=== PATIENT | female | born 1975 | race African-American/Black ===

== ENCOUNTER 2018-03-24 11:04 | Inpatient (IN) | payer SELFPAY ==
[~2018-03-24] VITALS: Ht 180.3 cm; Wt 88.5 kg
[~2018-03-24 11:04] MED LIST: CLON0.5T12 PO; CYAN100T PO; FOLI1TAB15 PO; LISI10TA7 PO; LORA0.5T2 PO; METR500T4 PO; ONDA4TAB9 PO; QUET50TA55 PO; SUMA100T16 PO
[2018-03-24 11:35] LABS: BASOPHILS % (AUTO) 0.5 % (0.0-5.0); EOSINOPHILS % (AUTO) 5.5 % (0.0-8.0); HEMATOCRIT 30.1 % (36-48); LYMPHOCYTES % (AUTO) 17.5 % (21.0-51.0); MEAN CORPUSCULAR HEMOGLOBIN 31.9 pg (27.0-33.0); MEAN CORPUSCULAR HGB CONC 34.6 g/dL (32.0-36.0); MEAN CORPUSCULAR VOLUME 92.2 fL (79-99); MONOCYTES % (AUTO) 8.6 % (3.0-13.0); NEUTROPHILS % (AUTO) 67.9 % (40.0-77.0); PLATELET COUNT (AUTO) 589 K/uL (130-400); RED BLOOD CELL COUNT(AUTO) 3.26 MIL/uL (4.00-5.50); RED CELL DISTRIBUTION WIDTH 14.5 % (11.0-15.5); WHITE BLOOD COUNT (AUTO) 9.3 K/uL (4.8-10.8)
[2018-03-24] MEDS ORDERED: KETOROLAC TROMETHAMINE 30MG/ML ONE (11:37)
[2018-03-24] MEDS ORDERED: ONDANSETRON HCL 4 MG/2 ML VIAL ONE (11:37)
[2018-03-24] MEDS ORDERED: SODIUM CHLORIDE 0.9% 1000ML 1,000 ML IV ONE (11:37)
[2018-03-24 12:01] LABS: CREATININE 0.7 mg/dL (0.5-1.5); POTASSIUM 4.2 mmol/L (3.5-5.1)
[2018-03-24 12:05] LABS: ALBUMIN 2.8 g/dL (3.5-5.0); BILIRUBIN,DIRECT 0.3 mg/dL (0.0-0.3); TOTAL PROTEIN, SERUM 6.8 g/dL (6.0-8.3)
[2018-03-24] MEDS ORDERED: IOPAMIDOL-370 75 ML VIAL IV ONE (12:21)
[2018-03-24] MEDS ORDERED: HYDROMORPHONE HCL 0.5 MG/0.5 ML ML ONE (14:15)
[2018-03-24 15:03] LABS: APPEARANCE,URINE Clear (CLEAR); BILIRUBIN,URINE Negative (NEGATIVE); COLOR,URINE Yellow (YELLOW); GLUCOSE, URINE (UA) Negative (NEGATIVE); KETONES,URINE Trace mg/dL (NEGATIVE); LEUKOCYTE ESTERASE ,URINE Negative (NEGATIVE); NITRATE,URINE Negative (NEGATIVE); OCCULT BLOOD,URINE Trace (NEGATIVE); PH,URINE 8.5 (5.0-8.0); PROTEIN,URINE Negative (NEGATIVE); UROBILINOGEN,URINE 0.2 mg/dL (0.2-1.0)
[2018-03-24 15:09] LABS: AMPHET/METH SCREEN,URINE NEGATIVE (NEGATIVE); BARBITURATE SCREEN, URINE NEGATIVE (NEGATIVE); BENZODIAZEPINES SCREEN,URINE NEGATIVE (NEGATIVE); CANNABINOID SCREEN,URINE NEGATIVE (NEGATIVE); COCAINE SCREEN,URINE NEGATIVE (NEGATIVE); OPIATE SCREEN,URINE NEGATIVE (NEGATIVE); PHENCYCLIDINE SCREEN,URINE NEGATIVE (NEGATIVE)
[2018-03-24 15:18] LABS: BACTERIA,URINE Rare /HPF (None Seen); RBC,URINE 0-1 /HPF (0-1); SQUAMOUS EPITHELIAL CELL,UR Rare /HPF (0-2); WBC,URINE 0-1 /HPF (0-1)
[2018-03-24] MEDS: PROCALAMINE IV SOLUTION 1,000 ML IV SCH (15:55)
[2018-03-24 17:11] VITALS: BP 145/105
[2018-03-24] MEDS: ONDANSETRON HCL 4 MG/2 ML VIAL IVP PRN ×2 (17:28→21:20)
[2018-03-24] MEDS ORDERED: MORPHINE SULFATE 2 MG/ML 1ML SYG IVP PRN (17:30)
[2018-03-24] MEDS ORDERED: ONDANSETRON HCL 4 MG/2 ML VIAL IVP PRN (17:30)
[2018-03-24] MEDS ORDERED: MORPHINE SULFATE 4 MG/1ML SYG IV PRN (17:30)
[2018-03-24 19:00] VITALS: BP 156/117
[2018-03-24] MEDS ORDERED: HYDRALAZINE HCL 20 MG/ML VIAL IV PRN (20:15)
[2018-03-24] MEDS: METRONIDAZOLE 500MG/100ML BAG 100 ML IV SCH (20:42)
[2018-03-24] MEDS: MORPHINE SULFATE 2 MG/ML 1ML SYG IVP PRN (21:21)
[2018-03-25] VITALS (7 sets, daily range): BP systolic 125–147; BP diastolic 73–99
[2018-03-25] MEDS: MORPHINE SULFATE 2 MG/ML 1ML SYG IVP PRN (01:47)
[2018-03-25] MEDS: ONDANSETRON HCL 4 MG/2 ML VIAL IVP PRN ×4 (05:26→20:25)
[2018-03-25] MEDS: KETOROLAC TROMETHAMINE 15MG/ML IV PRN ×2 (05:26→08:29)
[2018-03-25 07:16] LABS: HEMATOCRIT 27.9 % (36-48); MEAN CORPUSCULAR HEMOGLOBIN 31.1 pg (27.0-33.0); MEAN CORPUSCULAR HGB CONC 33.8 g/dL (32.0-36.0); MEAN CORPUSCULAR VOLUME 92.1 fL (79-99); PLATELET COUNT (AUTO) 537 K/uL (130-400); RED BLOOD CELL COUNT(AUTO) 3.03 MIL/uL (4.00-5.50); RED CELL DISTRIBUTION WIDTH 14.7 % (11.0-15.5); WHITE BLOOD COUNT (AUTO) 9.4 K/uL (4.8-10.8)
[2018-03-25 07:27] LABS: CREATININE 0.7 mg/dL (0.5-1.5)
[2018-03-25] MEDS: PROCALAMINE IV SOLUTION 1,000 ML IV SCH (08:28)
[2018-03-25] MEDS: METRONIDAZOLE 500MG/100ML BAG 100 ML IV SCH ×2 (08:29→20:19)
[2018-03-25] MEDS: CYANOCOBALAMIN (VITAMIN B-12) 1000 MCG/ML 1ML VIAL IM SCH (08:30)
[2018-03-25] MEDS ORDERED: HYDROMORPHONE PCA 10 MG/50 ML 50 ML IV PRN (09:15)
[2018-03-25] MEDS ORDERED: NALOXONE HCL 0.4 MG/1 ML ML IVP PRN (09:15)
[2018-03-25] MEDS ORDERED: PHARMACY COMMUNICATION MISC SCH (09:30)
[2018-03-25] MEDS: LORAZEPAM 2 MG/ML 1 ML VIAL IVP PRN (09:51)
[2018-03-26 03:53] VITALS: BP 127/81
[2018-03-26] MEDS: ONDANSETRON HCL 4 MG/2 ML VIAL IVP PRN ×3 (04:09→20:58)
[2018-03-26 04:47] LABS: HEMATOCRIT 25.6 % (36-48); MEAN CORPUSCULAR HEMOGLOBIN 33.7 pg (27.0-33.0); MEAN CORPUSCULAR HGB CONC 36.4 g/dL (32.0-36.0); MEAN CORPUSCULAR VOLUME 92.4 fL (79-99); PLATELET COUNT (AUTO) 546 K/uL (130-400); RED BLOOD CELL COUNT(AUTO) 2.77 MIL/uL (4.00-5.50); RED CELL DISTRIBUTION WIDTH 14.8 % (11.0-15.5)
[2018-03-26 04:54] LABS: CREATININE 0.7 mg/dL (0.5-1.5)
[2018-03-26 05:16] LABS: BAND NEUTROPHILS % (MANUAL) 10 % (0-2); EOSINOPHILS % (MANUAL) 3 % (1-6); LYMPHOCYTES % (MANUAL) 25 % (22-44); MAN.DIFF COMMENT-IMPRESSION MANUAL DIFFERENTIAL; MONOCYTES % (MANUAL) 8 % (2-9); PLATELET MORPHOLOGY COMMENT INCREASED; SEGMENTED NEUTROPHILS % 54 % (40-70)
[2018-03-26 07:00] VITALS: BP 139/96
[2018-03-26] MEDS ORDERED: PHARMACY COMMUNICATION MISC SCH (09:00)
[2018-03-26] MEDS: METRONIDAZOLE 500MG/100ML BAG 100 ML IV SCH ×2 (09:14→20:51)
[2018-03-26] MEDS: CYANOCOBALAMIN (VITAMIN B-12) 1000 MCG/ML 1ML VIAL IM SCH (09:14)
[2018-03-26] MEDS: LORAZEPAM 2 MG/ML 1 ML VIAL IVP PRN (09:33)
[2018-03-26] MEDS: PROCALAMINE IV SOLUTION 1,000 ML IV SCH (09:36)
[2018-03-26 11:20] VITALS: BP 136/103
[2018-03-26 12:06] LABS: CHOLESTEROL 105 mg/dL (<200); HDL CHOLESTEROL 36 mg/dL (35-85); LDL DIRECT 55 mg/dL (0-99); TRIGLYCERIDES 87 mg/dL (30-200)
[2018-03-26] MEDS: LEVOFLOXACIN 500 MG/D5W 100 ML 100 ML IV SCH (12:23)
[2018-03-26 15:20] VITALS: BP 128/85
[2018-03-26] MEDS: KETOROLAC TROMETHAMINE 15MG/ML IV PRN (17:59)
[2018-03-26 19:21] VITALS: BP 123/90
[2018-03-26] MEDS: SODIUM CHLORIDE 0.9% 1000ML 1,000 ML IV SCH (23:39)
[2018-03-26 23:43] VITALS: BP 122/80
[2018-03-27] VITALS (20 sets, daily range): BP systolic 104–159; BP diastolic 62–107
[2018-03-27] MEDS: LORAZEPAM 2 MG/ML 1 ML VIAL IVP PRN ×2 (01:32→14:15)
[2018-03-27 04:34] LABS: HEMATOCRIT 27.3 % (36-48); MEAN CORPUSCULAR HEMOGLOBIN 32.1 pg (27.0-33.0); MEAN CORPUSCULAR HGB CONC 34.4 g/dL (32.0-36.0); MEAN CORPUSCULAR VOLUME 93.5 fL (79-99); PLATELET COUNT (AUTO) 630 K/uL (130-400); RED BLOOD CELL COUNT(AUTO) 2.93 MIL/uL (4.00-5.50); RED CELL DISTRIBUTION WIDTH 15.1 % (11.0-15.5); WHITE BLOOD COUNT (AUTO) 9.8 K/uL (4.8-10.8)
[2018-03-27 04:44] LABS: CREATININE 0.7 mg/dL (0.5-1.5)
[2018-03-27 04:54] LABS: EOSINOPHILS % (MANUAL) 3 % (1-6); LYMPHOCYTES % (MANUAL) 20 % (22-44); MAN.DIFF COMMENT-IMPRESSION MANUAL DIFFERENTIAL; MONOCYTES % (MANUAL) 12 % (2-9); SEGMENTED NEUTROPHILS % 65 % (40-70)
[2018-03-27 04:55] LABS: PLATELET MORPHOLOGY COMMENT SLIGHT INCREASED
[2018-03-27] MEDS: SODIUM CHLORIDE 0.9% 1000ML 1,000 ML IV SCH ×3 (05:07→21:34)
[2018-03-27] MEDS: CYANOCOBALAMIN (VITAMIN B-12) 1000 MCG/ML 1ML VIAL IM SCH (08:20)
[2018-03-27] MEDS: METRONIDAZOLE 500MG/100ML BAG 100 ML IV SCH ×2 (08:21→21:29)
[2018-03-27] MEDS: ONDANSETRON HCL 4 MG/2 ML VIAL IVP PRN (08:21)
[2018-03-27] MEDS: LEVOFLOXACIN 500 MG/D5W 100 ML 100 ML IV SCH (13:11)
[2018-03-27] MEDS: PANTOPRAZOLE SODIUM 40 MG TABLET.DR PO SCH (21:29)
[2018-03-28 03:50] VITALS: BP 114/76
[2018-03-28] MEDS: SIMETHICONE 80 MG TAB.CHEW PO PRN ×2 (04:38→22:19)
[2018-03-28 04:52] LABS: ALBUMIN 2.2 g/dL (3.5-5.0); BILIRUBIN,TOTAL 0.7 mg/dL (0.2-1.0); CREATININE 0.7 mg/dL (0.5-1.5); POTASSIUM 4.1 mmol/L (3.5-5.1); TOTAL PROTEIN, SERUM 5.9 g/dL (6.0-8.3)
[2018-03-28 08:00] VITALS: BP 121/76
[2018-03-28] MEDS: LORAZEPAM 2 MG/ML 1 ML VIAL IVP PRN ×2 (09:40→22:24)
[2018-03-28] MEDS: CYANOCOBALAMIN (VITAMIN B-12) 1000 MCG/ML 1ML VIAL IM SCH (09:41)
[2018-03-28] MEDS: METRONIDAZOLE 500MG/100ML BAG 100 ML IV SCH ×2 (09:41→21:14)
[2018-03-28] MEDS: PANTOPRAZOLE SODIUM 40 MG TABLET.DR PO SCH ×2 (09:41→21:14)
[2018-03-28] MEDS: SODIUM CHLORIDE 0.9% 1000ML 1,000 ML IV SCH ×3 (09:45→21:40)
[2018-03-28 12:00] VITALS: BP 119/75
[2018-03-28] MEDS: LEVOFLOXACIN 500 MG/D5W 100 ML 100 ML IV SCH (13:01)
[2018-03-28 16:00] VITALS: BP 126/82
[2018-03-28] MEDS ORDERED: PROCALAMINE IV SOLUTION 1,000 ML IV SCH (16:50)
[2018-03-28] MEDS: PROCALAMINE IV SOLUTION 1,000 ML IV SCH (17:17)
[2018-03-28 19:40] VITALS: BP 116/89
[2018-03-28 23:50] VITALS: BP 135/91
[2018-03-29 03:55] VITALS: BP 133/89
[2018-03-29] MEDS: SODIUM CHLORIDE 0.9% 1000ML 1,000 ML IV SCH ×5 (04:20→23:49)
[2018-03-29 08:00] VITALS: BP 141/92
[2018-03-29] MEDS: SIMETHICONE 80 MG TAB.CHEW PO PRN ×2 (09:39→18:44)
[2018-03-29] MEDS: ONDANSETRON HCL 4 MG/2 ML VIAL IVP PRN ×2 (09:39→18:44)
[2018-03-29] MEDS: BISACODYL 5 MG TABLET.DR PO SCH ×2 (09:40→21:12)
[2018-03-29] MEDS: PANTOPRAZOLE SODIUM 40 MG TABLET.DR PO SCH ×2 (09:40→21:12)
[2018-03-29] MEDS: METRONIDAZOLE 500MG/100ML BAG 100 ML IV SCH ×2 (10:02→21:12)
[2018-03-29] MEDS: PROCALAMINE IV SOLUTION 1,000 ML IV SCH ×2 (10:02→21:26)
[2018-03-29] MEDS: CYANOCOBALAMIN (VITAMIN B-12) 1000 MCG/ML 1ML VIAL IM SCH (10:03)
[2018-03-29 12:00] VITALS: BP 132/81
[2018-03-29] MEDS: LEVOFLOXACIN 500 MG/D5W 100 ML 100 ML IV SCH (12:02)
[2018-03-29 16:00] VITALS: BP 153/108
[2018-03-29 19:00] VITALS: BP 138/101
[2018-03-29] MEDS: LORAZEPAM 2 MG/ML 1 ML VIAL IVP PRN (21:27)
[2018-03-30] VITALS: BP_SYST 137; BP_SYST 152; BP_DIAS 96
[2018-03-30] MEDS: SODIUM CHLORIDE 0.9% 1000ML 1,000 ML IV SCH ×3 (03:55→20:50)
[2018-03-30 04:36] VITALS: BP 130/89
[2018-03-30 07:10] VITALS: BP 137/90
[2018-03-30] MEDS: BISACODYL 5 MG TABLET.DR PO SCH ×2 (09:00→20:48)
[2018-03-30] MEDS: PROCALAMINE IV SOLUTION 1,000 ML IV SCH ×2 (09:26→20:27)
[2018-03-30] MEDS: METRONIDAZOLE 500MG/100ML BAG 100 ML IV SCH ×2 (09:28→20:48)
[2018-03-30] MEDS: SIMETHICONE 80 MG TAB.CHEW PO PRN ×2 (09:39→15:46)
[2018-03-30] MEDS: PANTOPRAZOLE SODIUM 40 MG TABLET.DR PO SCH ×2 (09:39→20:48)
[2018-03-30] MEDS: CYANOCOBALAMIN (VITAMIN B-12) 1000 MCG/ML 1ML VIAL IM SCH (09:43)
[2018-03-30 10:43] VITALS: BP 128/90
[2018-03-30] MEDS: LEVOFLOXACIN 500 MG/D5W 100 ML 100 ML IV SCH (15:43)
[2018-03-30] MEDS: ONDANSETRON HCL 4 MG/2 ML VIAL IVP PRN (15:46)
[2018-03-30 15:56] VITALS: BP 137/89
[2018-03-30 20:00] VITALS: BP 144/99
[2018-03-31] VITALS (7 sets, daily range): BP systolic 126–142; BP diastolic 58–100
[2018-03-31] MEDS: SODIUM CHLORIDE 0.9% 1000ML 1,000 ML IV SCH ×4 (02:23→22:39)
[2018-03-31] MEDS: BISACODYL 5 MG TABLET.DR PO SCH (09:00)
[2018-03-31] MEDS ORDERED: BISACODYL 5 MG TABLET.DR PO PRN (10:15)
[2018-03-31] MEDS: ONDANSETRON HCL 4 MG/2 ML VIAL IVP PRN ×3 (10:15→19:41)
[2018-03-31] MEDS: SIMETHICONE 80 MG TAB.CHEW PO PRN (10:15)
[2018-03-31] MEDS: PROCALAMINE IV SOLUTION 1,000 ML IV SCH (12:02)
[2018-03-31] MEDS: PANTOPRAZOLE SODIUM 40 MG TABLET.DR PO SCH ×2 (12:03→19:41)
[2018-03-31] MEDS: METRONIDAZOLE 500MG/100ML BAG 100 ML IV SCH ×2 (12:03→19:50)
[2018-03-31] MEDS: CYANOCOBALAMIN (VITAMIN B-12) 1000 MCG/ML 1ML VIAL IM SCH (12:09)
[2018-03-31] MEDS: LEVOFLOXACIN 500 MG/D5W 100 ML 100 ML IV SCH (14:47)
[2018-04-01] MEDS: PROCALAMINE IV SOLUTION 1,000 ML IV SCH (03:28)
[2018-04-01] MEDS: SODIUM CHLORIDE 0.9% 1000ML 1,000 ML IV SCH ×3 (03:28→18:10)
[2018-04-01 04:00] VITALS: BP 149/104
[2018-04-01] MEDS: METOCLOPRAMIDE 10 MG/2 ML VIAL IVP PRN ×3 (04:29→20:25)
[2018-04-01 07:00] VITALS: BP 140/93
[2018-04-01] MEDS: ONDANSETRON HCL 4 MG/2 ML VIAL IVP PRN (09:31)
[2018-04-01] MEDS: PANTOPRAZOLE SODIUM 40 MG TABLET.DR PO SCH ×2 (09:31→20:21)
[2018-04-01] MEDS: METRONIDAZOLE 500MG/100ML BAG 100 ML IV SCH ×2 (09:31→20:21)
[2018-04-01 11:00] VITALS: BP 138/93
[2018-04-01] MEDS: LEVOFLOXACIN 500 MG/D5W 100 ML 100 ML IV SCH (12:06)
[2018-04-01 16:00] VITALS: BP 135/101
[2018-04-01 20:00] VITALS: BP 123/84
[2018-04-02] VITALS: BP 138/96
[2018-04-02] MEDS: ONDANSETRON HCL 4 MG/2 ML VIAL IVP PRN ×3 (00:40→20:48)
[2018-04-02] MEDS: SODIUM CHLORIDE 0.9% 1000ML 1,000 ML IV SCH ×4 (00:40→20:49)
[2018-04-02 04:00] VITALS: BP 137/92
[2018-04-02] MEDS: PANTOPRAZOLE SODIUM 40 MG TABLET.DR PO SCH ×2 (08:08→20:48)
[2018-04-02] MEDS: METRONIDAZOLE 500MG/100ML BAG 100 ML IV SCH ×2 (08:09→20:48)
[2018-04-02 08:37] VITALS: BP 136/90
[2018-04-02] MEDS: METOCLOPRAMIDE 10 MG/2 ML VIAL IVP PRN ×2 (09:05→23:30)
[2018-04-02 11:26] VITALS: BP 126/79
[2018-04-02] MEDS: LEVOFLOXACIN 500 MG/D5W 100 ML 100 ML IV SCH (13:19)
[2018-04-02] MEDS ORDERED: DIATR MEGLU/DIATRIZOATE SODIUM 30 ML BOTTLE ONE (13:50)
[2018-04-02] MEDS ORDERED: IOPAMIDOL-370 75 ML VIAL IV ONE (15:22)
[2018-04-02 16:07] VITALS: BP 131/97
[2018-04-02 20:30] VITALS: BP 120/68
[2018-04-03] VITALS (29 sets, daily range): BP systolic 118–148; BP diastolic 71–99
[2018-04-03] MEDS: SODIUM CHLORIDE 0.9% 1000ML 1,000 ML IV SCH ×2 (04:53→15:18)
[2018-04-03] MEDS: ONDANSETRON HCL 4 MG/2 ML VIAL IVP PRN ×5 (05:15→23:21)
[2018-04-03] MEDS: METRONIDAZOLE 500MG/100ML BAG 100 ML IV SCH ×2 (08:34→23:21)
[2018-04-03] MEDS ORDERED: FENTANYL CITRATE PF 50 MCG/1 ML 2ML VIAL ONE ×5 (10:35→12:49)
[2018-04-03] MEDS ORDERED: MIDAZOLAM HCL 1 MG/ML 2ML VIAL ONE (10:35)
[2018-04-03] MEDS ORDERED: PROPOFOL 10 MG/ML 20ML VIAL IV ONE (10:35)
[2018-04-03] MEDS ORDERED: LACTATED RINGERS 1000ML 1,000 ML IV ONE (10:35)
[2018-04-03] MEDS: LEVOFLOXACIN 500 MG/D5W 100 ML 100 ML IV SCH ×2 (11:04→11:58)
[2018-04-03] MEDS ORDERED: GLYCOPYRROLATE 0.2 MG/ML 5 ML VIAL ONE (11:18)
[2018-04-03] MEDS ORDERED: LIDOCAINE PF 2% 5ML ABBOJECT ONE (11:18)
[2018-04-03] MEDS ORDERED: NEOSTIGMINE 5MG/5ML SYR IV ONE (11:18)
[2018-04-03] MEDS ORDERED: NEOMY SULF/POLYMYXIN B SULFATE 1 ML AMPUL IR ONE (11:38)
[2018-04-03] MEDS: METOCLOPRAMIDE 10 MG/2 ML VIAL IVP PRN (12:45)
[2018-04-03] MEDS ORDERED: MEPERIDINE-PF 25 MG/ML SYG ONE (13:12)
[2018-04-03] MEDS ORDERED: PROMETHAZINE HCL 25 MG/ML 1ML AMPULE IM ONE (13:12)
[2018-04-03] MEDS: PANTOPRAZOLE 40 MG/VIAL IVP SCH ×2 (16:54→23:21)
[2018-04-04] VITALS (7 sets, daily range): BP systolic 106–157; BP diastolic 65–83
[2018-04-04] MEDS: ONDANSETRON HCL 4 MG/2 ML VIAL IVP PRN ×3 (02:33→22:41)
[2018-04-04] MEDS: SODIUM CHLORIDE 0.9% 1000ML 1,000 ML IV SCH ×2 (04:29→09:25)
[2018-04-04] MEDS: METOCLOPRAMIDE 10 MG/2 ML VIAL IVP PRN (04:34)
[2018-04-04 06:07] LABS: HEMATOCRIT 25.9 % (36-48); MEAN CORPUSCULAR HEMOGLOBIN 31.4 pg (27.0-33.0); MEAN CORPUSCULAR HGB CONC 34.3 g/dL (32.0-36.0); MEAN CORPUSCULAR VOLUME 91.7 fL (79-99); PLATELET COUNT (AUTO) 542 K/uL (130-400); RED BLOOD CELL COUNT(AUTO) 2.83 MIL/uL (4.00-5.50); WHITE BLOOD COUNT (AUTO) 9.2 K/uL (4.8-10.8)
[2018-04-04 06:21] LABS: CREATININE 0.8 mg/dL (0.5-1.5); POTASSIUM 3.9 mmol/L (3.5-5.1)
[2018-04-04] MEDS: PANTOPRAZOLE 40 MG/VIAL IVP SCH ×2 (09:16→22:13)
[2018-04-04] MEDS: METRONIDAZOLE 500MG/100ML BAG 100 ML IV SCH ×2 (09:17→22:11)
[2018-04-04] MEDS ORDERED: IBUPROFEN 800 MG TAB PO PRN (12:30)
[2018-04-04] MEDS: LEVOFLOXACIN 500 MG/D5W 100 ML 100 ML IV SCH (12:33)
[2018-04-05] MEDS: ONDANSETRON HCL 4 MG/2 ML VIAL IVP PRN ×2 (02:52→13:21)
[2018-04-05] MEDS: TRAMADOL /APAP 37.5MG/325MG TAB PO PRN ×2 (02:58→08:50)
[2018-04-05 03:00] VITALS: BP 128/95
[2018-04-05] MEDS: SIMETHICONE 80 MG TAB.CHEW PO PRN (03:06)
[2018-04-05 06:21] LABS: HEMATOCRIT 24.5 % (36-48); MEAN CORPUSCULAR HEMOGLOBIN 31.8 pg (27.0-33.0); MEAN CORPUSCULAR HGB CONC 34.8 g/dL (32.0-36.0); MEAN CORPUSCULAR VOLUME 91.2 fL (79-99); NUCLEATED RED BLOOD CELLS 0.1 % (0.0-0.19); PLATELET COUNT (AUTO) 473 K/uL (130-400); RED BLOOD CELL COUNT(AUTO) 2.68 MIL/uL (4.00-5.50); RED CELL DISTRIBUTION WIDTH 14.9 % (11.0-15.5); WHITE BLOOD COUNT (AUTO) 7.4 K/uL (4.8-10.8)
[2018-04-05 08:00] VITALS: BP 145/97
[2018-04-05 08:08] LABS: BAND NEUTROPHILS % (MANUAL) 1 % (0-2); BASOPHILS % (MANUAL) 1 % (0-2); EOSINOPHILS % (MANUAL) 5 % (1-6); LYMPHOCYTES % (MANUAL) 23 % (22-44); MONOCYTES % (MANUAL) 6 % (2-9); REACTIVE LYMPHOCYTES 1 % (0-0); SEGMENTED NEUTROPHILS % 63 % (40-70)
[2018-04-05 08:14] LABS: MAN.DIFF COMMENT-IMPRESSION MANUAL DIFFERENTIAL; PLATELET MORPHOLOGY COMMENT SLIGHT INCREASED
[2018-04-05] MEDS: METRONIDAZOLE 500MG/100ML BAG 100 ML IV SCH (08:50)
[2018-04-05] MEDS: PANTOPRAZOLE SODIUM 40 MG TABLET.DR PO SCH ×2 (08:50→17:11)
[2018-04-05] MEDS: PANTOPRAZOLE 40 MG/VIAL IVP SCH (08:56)
[2018-04-05 08:57] LABS: HEMATOCRIT 26.1 % (36-48)
[2018-04-05 11:00] VITALS: BP 114/72
[2018-04-05] MEDS: LEVOFLOXACIN 500 MG/D5W 100 ML 100 ML IV SCH (13:20)
[2018-04-05] MEDS ORDERED: TRAM-355 PO (15:23)
[2018-04-05] MEDS ORDERED: IBUP-2077 PO (15:23)
[2018-04-05] MEDS ORDERED: PANT40TA PO (15:23)
[2018-04-05] MEDS ORDERED: LEVO500T2 PO (15:23)
[2018-04-05 16:00] VITALS: BP 116/78
== END 2018-04-05 18:54 | disposition home or self-care (01) | DRG 439 ==
LOC: EDH 11:04 → EDHIP 11:05 → 3CH 17:06
PROVIDERS: ADMIT Internal Medicine Nephrology; ATTEND Internal Medicine Nephrology
PROC: 0DB68ZX Excision of Stomach, Via Natural or Artificial Opening Endoscopic, Diagnostic (ICD-10-PCS; 2018-03-27)
PROC: 0J9C00Z Drainage of Pelvic Region Subcutaneous Tissue and Fascia with Drainage Device, Open Approach (ICD-10-PCS; principal; 2018-04-03 11:07)
DX: K85.20 Alcohol induced acute pancreatitis without necrosis or infection (principal); E87.1 Hypo-osmolality and hyponatremia; E88.09 Other disorders of plasma-protein metabolism, not elsewhere classified; D64.9 Anemia, unspecified; I10 Essential (primary) hypertension; Z90.721 Acquired absence of ovaries, unilateral; Z90.79 Acquired absence of other genital organ(s); Z88.0 Allergy status to penicillin; Z88.8 Allergy status to other drugs, medicaments and biological substances; Z82.61 Family history of arthritis; Z83.3 Family history of diabetes mellitus; Z82.49 Family history of ischemic heart disease and other diseases of the circulatory system
CPT/HCPCS: 36415; 43231; 74177; 76700; 80048; 80053; 80061; 80076; 80305; 81001; 82150; 82550; 83690; 84703; 85014; 85018; 85025; 85027; 88305; 88312; A4351; A4606; C9113; G0480; J1170; J1885; J1956; J2001; J2060; J2175; J2250; J2405; J2550; J2704; J2710; J2765; J3010; J3420; J3490; J7030; J7120; Q9963; Q9967

== ENCOUNTER 2018-07-06 13:15 | Inpatient (IN) | payer MEDICAID ==
[~2018-07-06] VITALS: Ht 180.3 cm; Wt 76.2 kg
[~2018-07-06 13:15] MED LIST changes: -CYAN100T PO; +HYDR500C2 PO; +IBUP-2077 PO; -LISI10TA7 PO; -LORA0.5T2 PO; -METR500T4 PO; -ONDA4TAB9 PO; +ONDA8TAB12 PO; -QUET50TA55 PO; +SUCR1TAB2 PO; -SUMA100T16 PO; +TRAM-355 PO; +TYL3 PO
[2018-07-06] MEDS ORDERED: SODIUM CHLORIDE 0.9% 1000ML 2,000 ML IV ONE (13:48)
[2018-07-06] MEDS ORDERED: ACETAMINOPHEN 325 MG TAB ONE (13:48)
[2018-07-06] MEDS ORDERED: ONDANSETRON HCL 4 MG/2 ML VIAL ONE (13:59)
[2018-07-06] MEDS ORDERED: MORPHINE SULFATE 4 MG/1ML SYG ONE (14:00)
[2018-07-06] MEDS ORDERED: CLINDAMYCIN 600 MG/D5% WATER 50 ML IV ONE (14:00)
[2018-07-06 14:09] LABS: BASOPHILS % (AUTO) 0.5 % (0.0-5.0); EOSINOPHILS % (AUTO) 0.8 % (0.0-8.0); HEMATOCRIT 29.9 % (36-48); LYMPHOCYTES % (AUTO) 8.1 % (21.0-51.0); MEAN CORPUSCULAR HEMOGLOBIN 29.5 pg (27.0-33.0); MEAN CORPUSCULAR HGB CONC 33.8 g/dL (32.0-36.0); MEAN CORPUSCULAR VOLUME 87.4 fL (79-99); MONOCYTES % (AUTO) 8.1 % (3.0-13.0); NEUTROPHILS % (AUTO) 82.5 % (40.0-77.0); RED BLOOD CELL COUNT(AUTO) 3.43 MIL/uL (4.00-5.50); RED CELL DISTRIBUTION WIDTH 21.2 % (11.0-15.5)
[2018-07-06 14:13] LABS: PLATELET COUNT (AUTO) 752 K/uL (130-400)
[2018-07-06 14:16] LABS: CARBON DIOXIDE 27 mmol/L (21-32); CHLORIDE 106 mmol/L (101-111); CREATININE 0.7 mg/dL (0.5-1.5); GLOMERULAR FILTR. RATE CALC 117 mL/min (>60); GLUCOSE,RANDOM 91 mg/dL (70-105); POTASSIUM 3.4 mmol/L (3.5-5.1); SODIUM SERUM 128 mmol/L (136-145); UREA NITROGEN, BLOOD 6 mg/dL (7-18)
[2018-07-06] MEDS ORDERED: LEVOFLOXACIN 750 MG/D5W 150 ML 150 ML ONE (14:25)
[2018-07-06 14:37] LABS: INR 1.13 (0.85-1.15); PARTIAL THROMBOPLASTIN TIME 38.3 SEC (26.3-35.5); PROTHROMBIN TIME 11.8 SEC (9.6-11.6)
[2018-07-06 14:38] LABS: PLATELET MORPHOLOGY COMMENT INCREASED
[2018-07-06 14:42] LABS: ALANINE AMINOTRANSFERASE 12 U/L (12-78); ALBUMIN 2.6 g/dL (3.5-5.0); ASPARTATE AMINOTRANSFERASE 18 U/L (10-37); BILIRUBIN,TOTAL 0.9 mg/dL (0.2-1.0); CREATINE KINASE MB < 0.5 ng/mL (0.5-3.6); CREATINE KINASE, TOTAL 44 U/L (21-232); MYOGLOBIN 20 ng/mL (10-92); TOTAL PROTEIN, SERUM 7.1 g/dL (6.0-8.3); TROPONIN I < 0.04 ng/mL (0.00-0.06)
[2018-07-06 15:08] LABS: APPEARANCE,URINE Clear (CLEAR); BILIRUBIN,URINE Negative (NEGATIVE); COLOR,URINE Yellow (YELLOW); GLUCOSE, URINE (UA) Negative (NEGATIVE); KETONES,URINE 15 mg/dL (NEGATIVE); LEUKOCYTE ESTERASE ,URINE Trace (NEGATIVE); NITRATE,URINE Negative (NEGATIVE); OCCULT BLOOD,URINE Nonhemolyzed Trace (NEGATIVE); PH,URINE 8.5 (5.0-8.0); PROTEIN,URINE Negative (NEGATIVE)
[2018-07-06 15:21] LABS: BACTERIA,URINE None Seen /HPF (None Seen); RBC,URINE None Seen /HPF (0-1)
[2018-07-06] MEDS ORDERED: MORPHINE SULFATE 2 MG/ML 1ML SYG ONE (17:03)
[2018-07-06 17:36] VITALS: BP 136/75
[2018-07-06] MEDS ORDERED: MORPHINE SULFATE 2 MG/ML 1ML SYG IVP SCH (17:45)
[2018-07-06] MEDS ORDERED: MAGNESIUM CITRATE 296 ML SOLUTION PO SCH (18:45)
[2018-07-06 19:01] VITALS: BP 147/92
[2018-07-06] MEDS: ONDANSETRON HCL MDV 20ML 2 MG/ML VIAL IVP PRN (19:37)
[2018-07-06] MEDS: MEPERIDINE-PF 50 MG/ML SYG IM PRN (19:38)
[2018-07-06] MEDS: CLINDAMYCIN 600 MG/D5% WATER 50 ML IV SCH (20:10)
[2018-07-06] MEDS: DOCUSATE SODIUM 100 MG CAP PO SCH (21:52)
[2018-07-06] MEDS: SODIUM CHLORIDE 0.9% 1000ML 1,000 ML IV SCH (21:59)
[2018-07-07 00:20] VITALS: BP 128/76
[2018-07-07] MEDS: CLINDAMYCIN 600 MG/D5% WATER 50 ML IV SCH ×4 (02:34→20:16)
[2018-07-07] MEDS: PROMETHAZINE HCL 25 MG/ML 1ML AMPULE IM PRN ×3 (02:42→18:14)
[2018-07-07] MEDS: MEPERIDINE-PF 50 MG/ML SYG IM PRN ×3 (02:43→18:14)
[2018-07-07 04:16] VITALS: BP 123/83
[2018-07-07] MEDS: SODIUM CHLORIDE 0.9% 1000ML 1,000 ML IV SCH ×5 (04:51→23:08)
[2018-07-07 06:39] LABS: BASOPHILS % (AUTO) 0.1 % (0.0-5.0); EOSINOPHILS % (AUTO) 2.1 % (0.0-8.0); HEMATOCRIT 23.9 % (36-48); LYMPHOCYTES % (AUTO) 10.1 % (21.0-51.0); MEAN CORPUSCULAR HEMOGLOBIN 29.6 pg (27.0-33.0); MEAN CORPUSCULAR HGB CONC 34.3 g/dL (32.0-36.0); MEAN CORPUSCULAR VOLUME 86.3 fL (79-99); MONOCYTES % (AUTO) 9.5 % (3.0-13.0); NEUTROPHILS % (AUTO) 78.2 % (40.0-77.0); PLATELET COUNT (AUTO) 613 K/uL (130-400); RED BLOOD CELL COUNT(AUTO) 2.77 MIL/uL (4.00-5.50); WHITE BLOOD COUNT (AUTO) 13.9 K/uL (4.8-10.8)
[2018-07-07 06:54] LABS: BILIRUBIN,TOTAL 0.8 mg/dL (0.2-1.0); CREATININE 0.6 mg/dL (0.5-1.5); POTASSIUM 3.4 mmol/L (3.5-5.1); TOTAL PROTEIN, SERUM 5.8 g/dL (6.0-8.3)
[2018-07-07 07:43] VITALS: BP 134/96
[2018-07-07] MEDS: DOCUSATE SODIUM 100 MG CAP PO SCH ×2 (08:47→20:16)
[2018-07-07] MEDS ORDERED: HYDROXYUREA 500 MG CAP PO SCH (09:00)
[2018-07-07] MEDS: HYDROXYUREA 500 MG CAP PO SCH (09:18)
[2018-07-07 11:27] VITALS: BP 140/92
[2018-07-07] MEDS: LEVOFLOXACIN 750 MG/D5W 150 ML 150 ML IV SCH (13:27)
[2018-07-07] MEDS ORDERED: LEVOFLOXACIN 750 MG/D5W 150 ML 150 ML IV SCH (14:15)
[2018-07-07 15:01] VITALS: BP 126/80
[2018-07-07] MEDS: ACETAMINOPHEN EXTRA STRENGTH 500 MG TABLET PO PRN ×2 (16:44→17:33)
[2018-07-07] MEDS: ONDANSETRON HCL MDV 20ML 2 MG/ML VIAL IVP PRN (16:51)
[2018-07-07] MEDS ORDERED: ACETAMINOPHEN 650 MG SUPPOSITORY RC PRN (18:00)
[2018-07-07 23:37] VITALS: BP 129/84
[2018-07-08] VITALS (11 sets, daily range): BP systolic 107–135; BP diastolic 63–84
[2018-07-08] MEDS: ONDANSETRON HCL MDV 20ML 2 MG/ML VIAL IVP PRN ×2 (00:53→20:27)
[2018-07-08] MEDS: CLINDAMYCIN 600 MG/D5% WATER 50 ML IV SCH ×4 (02:53→20:27)
[2018-07-08] MEDS: SODIUM CHLORIDE 0.9% 1000ML 1,000 ML IV SCH ×6 (03:05→15:49)
[2018-07-08] MEDS: PROMETHAZINE HCL 25 MG/ML 1ML AMPULE IM PRN ×4 (05:23→22:56)
[2018-07-08] MEDS: MEPERIDINE-PF 50 MG/ML SYG IM PRN ×4 (05:24→22:57)
[2018-07-08 07:16] LABS: INR 1.25 (0.85-1.15); PARTIAL THROMBOPLASTIN TIME 36.3 SEC (26.3-35.5); PROTHROMBIN TIME 13.1 SEC (9.6-11.6)
[2018-07-08 07:19] LABS: ALBUMIN 1.9 g/dL (3.5-5.0); BILIRUBIN,TOTAL 0.8 mg/dL (0.2-1.0); CREATININE 0.6 mg/dL (0.5-1.5); POTASSIUM 3.4 mmol/L (3.5-5.1); TOTAL PROTEIN, SERUM 5.8 g/dL (6.0-8.3)
[2018-07-08 07:59] LABS: BASOPHILS % (AUTO) 0.7 % (0.0-5.0); EOSINOPHILS % (AUTO) 0.4 % (0.0-8.0); HEMATOCRIT 23.3 % (36-48); LYMPHOCYTES % (AUTO) 8.7 % (21.0-51.0); MEAN CORPUSCULAR HEMOGLOBIN 29.4 pg (27.0-33.0); MEAN CORPUSCULAR HGB CONC 33.3 g/dL (32.0-36.0); MEAN CORPUSCULAR VOLUME 88.5 fL (79-99); NEUTROPHILS % (AUTO) 80.2 % (40.0-77.0); NUCLEATED RED BLOOD CELLS 0.1 % (0.0-0.19); PLATELET COUNT (AUTO) 689 K/uL (130-400); RED BLOOD CELL COUNT(AUTO) 2.63 MIL/uL (4.00-5.50); WHITE BLOOD COUNT (AUTO) 14.9 K/uL (4.8-10.8)
[2018-07-08] MEDS: HYDROXYUREA 500 MG CAP PO SCH (08:52)
[2018-07-08] MEDS: DOCUSATE SODIUM 100 MG CAP PO SCH ×2 (08:53→20:27)
[2018-07-08] MEDS: ACETAMINOPHEN EXTRA STRENGTH 500 MG TABLET PO PRN (11:17)
[2018-07-08] MEDS ORDERED: LIDOCAINE HCL MPF 1% 5ML VIAL ONE (14:55)
[2018-07-08] MEDS: LEVOFLOXACIN 750 MG/D5W 150 ML 150 ML IV SCH (16:13)
[2018-07-09] MEDS: SODIUM CHLORIDE 0.9% 1000ML 1,000 ML IV SCH ×7 (00:01→20:05)
[2018-07-09 00:08] VITALS: BP 124/79
[2018-07-09] MEDS: CLINDAMYCIN 600 MG/D5% WATER 50 ML IV SCH ×4 (02:41→21:25)
[2018-07-09 03:40] VITALS: BP 126/87
[2018-07-09] MEDS: PROMETHAZINE HCL 25 MG/ML 1ML AMPULE IM PRN ×3 (05:27→18:14)
[2018-07-09] MEDS: MEPERIDINE-PF 50 MG/ML SYG IM PRN ×3 (05:28→18:14)
[2018-07-09 05:45] LABS: BASOPHILS % (AUTO) 0.3 % (0.0-5.0); EOSINOPHILS % (AUTO) 0.3 % (0.0-8.0); LYMPHOCYTES % (AUTO) 6.3 % (21.0-51.0); MEAN CORPUSCULAR HEMOGLOBIN 29.1 pg (27.0-33.0); MEAN CORPUSCULAR VOLUME 85.5 fL (79-99); MONOCYTES % (AUTO) 10.3 % (3.0-13.0); NEUTROPHILS % (AUTO) 82.8 % (40.0-77.0); PLATELET COUNT (AUTO) 598 K/uL (130-400); RED BLOOD CELL COUNT(AUTO) 2.45 MIL/uL (4.00-5.50); RED CELL DISTRIBUTION WIDTH 21.3 % (11.0-15.5); WHITE BLOOD COUNT (AUTO) 19.4 K/uL (4.8-10.8)
[2018-07-09 05:59] LABS: CREATININE 0.7 mg/dL (0.5-1.5); MAGNESIUM 1.2 mg/dL (1.80-2.40)
[2018-07-09 06:03] LABS: POTASSIUM 2.7 mmol/L (3.5-5.1)
[2018-07-09 07:39] VITALS: BP 110/73
[2018-07-09] MEDS: POTASSIUM CHLORIDE 10% ELIXIR 20 MEQ/15 ML UDCUP PO PRN ×3 (07:56→14:04)
[2018-07-09] MEDS: HYDROXYUREA 500 MG CAP PO SCH (09:01)
[2018-07-09] MEDS: POTASSIUM CHLORIDE 20MEQ/100ML 100 ML IV PRN ×2 (09:01→11:25)
[2018-07-09] MEDS: DOCUSATE SODIUM 100 MG CAP PO SCH ×2 (09:24→21:26)
[2018-07-09 11:47] VITALS: BP 119/78
[2018-07-09 12:57] LABS: HEMATOCRIT 23.8 % (36-48)
[2018-07-09] MEDS: LEVOFLOXACIN 750 MG/D5W 150 ML 150 ML IV SCH (13:26)
[2018-07-09 15:40] VITALS: BP 118/79
[2018-07-09] MEDS ORDERED: MAGNESIUM 2GM PREMIX 50ML 50 ML IV NR (16:00)
[2018-07-09] MEDS: ONDANSETRON HCL MDV 20ML 2 MG/ML VIAL IVP PRN (16:25)
[2018-07-09] MEDS: IBUPROFEN 800 MG TAB PO PRN (17:19)
[2018-07-09] MEDS: MEROPENEM 500 MG VIAL IVP SCH (17:20)
[2018-07-09 18:07] LABS: APPEARANCE,URINE Clear (CLEAR); BILIRUBIN,URINE Negative (NEGATIVE); COLOR,URINE Yellow (YELLOW); GLUCOSE, URINE (UA) Negative (NEGATIVE); KETONES,URINE 40 mg/dL (NEGATIVE); LEUKOCYTE ESTERASE ,URINE Negative (NEGATIVE); NITRATE,URINE Negative (NEGATIVE); OCCULT BLOOD,URINE Negative (NEGATIVE); PH,URINE 6.5 (5.0-8.0); PROTEIN,URINE POS 1+ (NEGATIVE)
[2018-07-09 18:08] LABS: CREATININE,URINE RANDOM 106 mg/dL (30-135); SODIUM,URINE RANDOM 115 mmol/l (40-220)
[2018-07-09 18:24] LABS: BACTERIA,URINE Rare /HPF (None Seen); RBC,URINE 0-1 /HPF (0-1); SQUAMOUS EPITHELIAL CELL,UR Few /HPF (0-2); WBC,URINE 0-1 /HPF (0-1); YEAST,URINE BUDDING Few /HPF (None Seen)
[2018-07-09 23:56] VITALS: BP 107/72
[2018-07-10] VITALS (7 sets, daily range): BP systolic 107–133; BP diastolic 72–90
[2018-07-10] MEDS: MEROPENEM 500 MG VIAL IVP SCH ×3 (01:40→16:47)
[2018-07-10] MEDS: IBUPROFEN 800 MG TAB PO PRN (01:42)
[2018-07-10] MEDS: SODIUM CHLORIDE 0.9% 1000ML 1,000 ML IV SCH ×3 (01:57→22:44)
[2018-07-10] MEDS: POTASSIUM CHLORIDE 20MEQ/100ML 100 ML IV PRN (02:06)
[2018-07-10] MEDS: LIDOCAINE HCL-MPF 1% 2ML VIAL IVP PRN (02:06)
[2018-07-10] MEDS: CLINDAMYCIN 600 MG/D5% WATER 50 ML IV SCH ×4 (03:14→22:42)
[2018-07-10 04:45] LABS: HEMATOCRIT 22.3 % (36-48); MEAN CORPUSCULAR HEMOGLOBIN 29.3 pg (27.0-33.0); MEAN CORPUSCULAR HGB CONC 34.2 g/dL (32.0-36.0); MEAN CORPUSCULAR VOLUME 85.6 fL (79-99); PLATELET COUNT (AUTO) 555 K/uL (130-400); RED BLOOD CELL COUNT(AUTO) 2.61 MIL/uL (4.00-5.50); RED CELL DISTRIBUTION WIDTH 19.5 % (11.0-15.5); WHITE BLOOD COUNT (AUTO) 17.6 K/uL (4.8-10.8)
[2018-07-10 04:52] LABS: LYMPHOCYTES % (MANUAL) 9 % (22-44); MAN.DIFF COMMENT-IMPRESSION MANUAL DIFFERENTIAL; MONOCYTES % (MANUAL) 5 % (2-9); SEGMENTED NEUTROPHILS % 86 % (40-70)
[2018-07-10 04:53] LABS: CREATININE 0.7 mg/dL (0.5-1.5); PLATELET MORPHOLOGY COMMENT INCREASED; POTASSIUM 3.5 mmol/L (3.5-5.1)
[2018-07-10] MEDS: MEPERIDINE-PF 50 MG/ML SYG IM PRN ×4 (05:01→22:42)
[2018-07-10] MEDS ORDERED: DIATR MEGLU/DIATRIZOATE SODIUM 30 ML BOTTLE ONE (05:52)
[2018-07-10] MEDS ORDERED: IOHEXOL-350 75 ML VIAL IV ONE (08:49)
[2018-07-10] MEDS: DOCUSATE SODIUM 100 MG CAP PO SCH ×2 (09:22→22:42)
[2018-07-10] MEDS: HYDROXYUREA 500 MG CAP PO SCH (09:22)
[2018-07-10] MEDS: PROMETHAZINE HCL 25 MG/ML 1ML AMPULE IM PRN ×2 (10:36→14:56)
[2018-07-11] VITALS: BP 120/78
[2018-07-11] MEDS: MEROPENEM 500 MG VIAL IVP SCH ×4 (00:06→23:57)
[2018-07-11] MEDS: POTASSIUM CHLORIDE 20MEQ/100ML 100 ML IV PRN (00:07)
[2018-07-11 04:00] VITALS: BP 151/81
[2018-07-11] MEDS: CLINDAMYCIN 600 MG/D5% WATER 50 ML IV SCH ×4 (04:27→23:38)
[2018-07-11] MEDS: MEPERIDINE-PF 50 MG/ML SYG IM PRN ×3 (04:36→14:19)
[2018-07-11] MEDS: PROMETHAZINE HCL 25 MG/ML 1ML AMPULE IM PRN ×2 (04:36→14:18)
[2018-07-11 05:10] LABS: BASOPHILS % (AUTO) 0.3 % (0.0-5.0); EOSINOPHILS % (AUTO) 1.5 % (0.0-8.0); HEMATOCRIT 24.3 % (36-48); LYMPHOCYTES % (AUTO) 15.1 % (21.0-51.0); MEAN CORPUSCULAR HEMOGLOBIN 28.6 pg (27.0-33.0); MEAN CORPUSCULAR HGB CONC 33.7 g/dL (32.0-36.0); MEAN CORPUSCULAR VOLUME 84.8 fL (79-99); MONOCYTES % (AUTO) 8.4 % (3.0-13.0); NEUTROPHILS % (AUTO) 74.7 % (40.0-77.0); PLATELET COUNT (AUTO) 631 K/uL (130-400); RED BLOOD CELL COUNT(AUTO) 2.87 MIL/uL (4.00-5.50); RED CELL DISTRIBUTION WIDTH 19.8 % (11.0-15.5); WHITE BLOOD COUNT (AUTO) 13.5 K/uL (4.8-10.8)
[2018-07-11 05:35] LABS: ALBUMIN 1.7 g/dL (3.5-5.0); BILIRUBIN,TOTAL 0.7 mg/dL (0.2-1.0); CREATININE 0.6 mg/dL (0.5-1.5); POTASSIUM 3.1 mmol/L (3.5-5.1); TOTAL PROTEIN, SERUM 5.7 g/dL (6.0-8.3)
[2018-07-11] MEDS ORDERED: FUROSEMIDE 10 MG/ML 4ML VIAL IV SCH (09:30)
[2018-07-11 09:34] VITALS: BP 127/83
[2018-07-11] MEDS: THIAMINE HCL 100 MG TABLET PO SCH (10:19)
[2018-07-11] MEDS: FOLIC ACID 1 MG TABLET PO SCH (10:19)
[2018-07-11] MEDS: DOCUSATE SODIUM 100 MG CAP PO SCH ×3 (10:19→23:38)
[2018-07-11] MEDS: HYDROXYUREA 500 MG CAP PO SCH (10:20)
[2018-07-11] MEDS: NS-20 MEQ KCL 1000ML 1,000 ML IV SCH ×2 (10:21→19:00)
[2018-07-11 13:01] VITALS: BP 127/83
[2018-07-11 17:44] VITALS: BP 132/95
[2018-07-11 20:00] VITALS: BP 120/78
[2018-07-12] VITALS: BP 130/79
[2018-07-12] MEDS: MEPERIDINE-PF 50 MG/ML SYG IM PRN ×2 (00:56→06:03)
[2018-07-12] MEDS: PROMETHAZINE HCL 25 MG/ML 1ML AMPULE IM PRN ×2 (00:57→05:57)
[2018-07-12 04:00] VITALS: BP 125/86
[2018-07-12] MEDS: CLINDAMYCIN 600 MG/D5% WATER 50 ML IV SCH ×3 (05:57→16:16)
[2018-07-12] MEDS: NS-20 MEQ KCL 1000ML 1,000 ML IV SCH (05:57)
[2018-07-12 08:00] VITALS: BP 120/89
[2018-07-12] MEDS: DOCUSATE SODIUM 100 MG CAP PO SCH (08:36)
[2018-07-12] MEDS: MEROPENEM 500 MG VIAL IVP SCH ×2 (08:37→16:17)
[2018-07-12] MEDS: FOLIC ACID 1 MG TABLET PO SCH (08:37)
[2018-07-12] MEDS: POTASSIUM CHLORIDE 20 MEQ ERTAB PO PRN ×2 (08:37→16:03)
[2018-07-12] MEDS: THIAMINE HCL 100 MG TABLET PO SCH (08:37)
[2018-07-12] MEDS: ACETAMINOPHEN EXTRA STRENGTH 500 MG TABLET PO PRN ×2 (08:43→14:10)
[2018-07-12 08:47] LABS: INR 1.11 (0.85-1.15); PARTIAL THROMBOPLASTIN TIME 38.3 SEC (26.3-35.5); PROTHROMBIN TIME 11.6 SEC (9.6-11.6)
[2018-07-12] MEDS: POTASSIUM CHLORIDE 20MEQ/100ML 100 ML IV PRN (09:02)
[2018-07-12] MEDS: LIDOCAINE HCL-MPF 1% 2ML VIAL IVP PRN (09:09)
[2018-07-12] MEDS: HYDROXYUREA 500 MG CAP PO SCH (09:10)
[2018-07-12] MEDS: ONDANSETRON HCL MDV 20ML 2 MG/ML VIAL IVP PRN (09:10)
[2018-07-12 11:52] VITALS: BP 134/85
[2018-07-12 15:56] VITALS: BP 131/97
== END 2018-07-12 17:59 | disposition home or self-care (01) | DRG 721 ==
LOC: EDH 13:15 → WSH 13:16 → 3AH 07-09 20:21
PROVIDERS: ADMIT Specialist; ATTEND Specialist
PROC: 0W9F30Z Drainage of Abdominal Wall with Drainage Device, Percutaneous Approach (ICD-10-PCS; principal; 2018-07-10)
PROC: 02H633Z Insertion of Infusion Device into Right Atrium, Percutaneous Approach (ICD-10-PCS; 2018-07-12)
PROC: 02WAX3Z Revision of Infusion Device in Heart, External Approach (ICD-10-PCS; 2018-07-12)
DX: T81.4XXA Infection following a procedure, initial encounter (principal); E43 Unspecified severe protein-calorie malnutrition; A41.9 Sepsis, unspecified organism; K86.3 Pseudocyst of pancreas; E88.09 Other disorders of plasma-protein metabolism, not elsewhere classified; K86.1 Other chronic pancreatitis; R18.8 Other ascites; L02.211 Cutaneous abscess of abdominal wall; S30.1XXA Contusion of abdominal wall, initial encounter; D47.3 Essential (hemorrhagic) thrombocythemia; D64.9 Anemia, unspecified; N39.0 Urinary tract infection, site not specified; B96.20 Unspecified Escherichia coli [E. coli] as the cause of diseases classified elsewhere; F10.10 Alcohol abuse, uncomplicated; Z16.12 Extended spectrum beta lactamase (ESBL) resistance; R79.89 Other specified abnormal findings of blood chemistry; Z16.24 Resistance to multiple antibiotics; D25.9 Leiomyoma of uterus, unspecified; E87.6 Hypokalemia; I10 Essential (primary) hypertension; K57.30 Diverticulosis of large intestine without perforation or abscess without bleeding; K66.0 Peritoneal adhesions (postprocedural) (postinfection); Y83.8 Other surgical procedures as the cause of abnormal reaction of the patient, or of later complication, without mention of misadventure at the time of the procedure; Z68.23 Body mass index [BMI] 23.0-23.9, adult; Y92.89 Other specified places as the place of occurrence of the external cause; Z90.710 Acquired absence of both cervix and uterus; Z90.722 Acquired absence of ovaries, bilateral
CPT/HCPCS: 36415; 36430; 71045; 74176; 74177; 75989; 76942; 80048; 80053; 80339; 81001; 82150; 82550; 82553; 82570; 83605; 83690; 83735; 83874; 83935; 84132; 84300; 84484; 85014; 85018; 85025; 85610; 85730; 86701; 86850; 86900; 86901; 86922; 87040; 87071; 87088; 87186; 87205; 87390; 93005; A4218; C1894; J1940; J1956; J2175; J2185; J2270; J2405; J2550; J3475; J3480; J3490; J7030; P9016; Q9963; Q9967

== ENCOUNTER 2018-07-15 10:50 | Inpatient (IN) | payer MEDICAID ==
[~2018-07-15] VITALS: Ht 170.2 cm; Wt 84.8 kg
[2018-07-15 11:39] LABS: BASOPHILS % (AUTO) 0.4 % (0.0-5.0); HEMATOCRIT 27.6 % (36-48); LYMPHOCYTES % (AUTO) 8.9 % (21.0-51.0); MEAN CORPUSCULAR HEMOGLOBIN 29.1 pg (27.0-33.0); MEAN CORPUSCULAR HGB CONC 33.8 g/dL (32.0-36.0); MEAN CORPUSCULAR VOLUME 86.1 fL (79-99); NEUTROPHILS % (AUTO) 81.7 % (40.0-77.0); PLATELET COUNT (AUTO) 659 K/uL (130-400); RED BLOOD CELL COUNT(AUTO) 3.21 MIL/uL (4.00-5.50); RED CELL DISTRIBUTION WIDTH 19.6 % (11.0-15.5); WHITE BLOOD COUNT (AUTO) 15.6 K/uL (4.8-10.8)
[2018-07-15] MEDS ORDERED: MEROPENEM 1 GM VIAL ONE (11:39)
[2018-07-15] MEDS ORDERED: MORPHINE SULFATE 4 MG/1ML SYG ONE (11:39)
[2018-07-15] MEDS ORDERED: SODIUM CHLORIDE 0.9% 1000ML 2,000 ML IV ONE (11:39)
[2018-07-15] MEDS ORDERED: ONDANSETRON HCL 4 MG/2 ML VIAL ONE (11:39)
[2018-07-15] MEDS ORDERED: SODIUM CHLORIDE 0.9% 100 ML IV ONE (11:46)
[2018-07-15 11:56] LABS: CREATINE KINASE, TOTAL 22 U/L (21-232); MYOGLOBIN 17 ng/mL (10-92); TROPONIN I < 0.04 ng/mL (0.00-0.06)
[2018-07-15 11:57] LABS: CREATININE 0.7 mg/dL (0.5-1.5); POTASSIUM 3.4 mmol/L (3.5-5.1)
[2018-07-15 11:58] LABS: ALBUMIN 2.2 g/dL (3.5-5.0); BILIRUBIN,TOTAL 0.6 mg/dL (0.2-1.0); TOTAL PROTEIN, SERUM 6.1 g/dL (6.0-8.3)
[2018-07-15 12:11] LABS: INR 1.07 (0.85-1.15); PROTHROMBIN TIME 11.2 SEC (9.6-11.6)
[2018-07-15] MEDS ORDERED: HYDROMORPHONE HCL 0.5 MG/0.5 ML ML ONE ×2 (12:38→15:11)
[2018-07-15] MEDS ORDERED: HYDROMORPHONE 1 MG/1 ML AMP ONE ×2 (12:44→15:58)
[2018-07-15] MEDS ORDERED: IOHEXOL-350 75 ML VIAL IV ONE (12:57)
[2018-07-15] MEDS: LACTATED RINGERS 1000ML 1,000 ML IV SCH (15:45)
[2018-07-15] MEDS ORDERED: LACTATED RINGERS 1000ML 1,000 ML IV ONE (15:56)
[2018-07-15 18:00] VITALS: BP 139/84
[2018-07-15] MEDS ORDERED: ALTEPLASE 2 MG/2 ML IVCATH SCH (18:30)
[2018-07-15] MEDS: LEVOFLOXACIN 500 MG/D5W 100 ML 100 ML IV SCH (18:55)
[2018-07-15] MEDS: HYDROMORPHONE 1 MG/1 ML AMP IVP PRN (18:57)
[2018-07-15] MEDS ORDERED: ACETAMINOPHEN 325 MG TAB PO PRN (22:00)
[2018-07-15 23:55] VITALS: BP 131/85
[2018-07-16] MEDS: HYDROMORPHONE 1 MG/1 ML AMP IVP PRN ×4 (01:00→19:37)
[2018-07-16 01:04] LABS: APPEARANCE,URINE Clear (CLEAR); BILIRUBIN,URINE Negative (NEGATIVE); COLOR,URINE Dark Yellow (YELLOW); GLUCOSE, URINE (UA) Negative (NEGATIVE); KETONES,URINE 40 mg/dL (NEGATIVE); LEUKOCYTE ESTERASE ,URINE Negative (NEGATIVE); NITRATE,URINE Negative (NEGATIVE); OCCULT BLOOD,URINE Trace (NEGATIVE); PROTEIN,URINE POS 2+ (NEGATIVE)
[2018-07-16 01:20] LABS: BACTERIA,URINE None Seen /HPF (None Seen); MUCUS,URINE Few LPF (None Seen); RBC,URINE 0-1 /HPF (0-1); SQUAMOUS EPITHELIAL CELL,UR Few /HPF (0-2); WBC,URINE 0-1 /HPF (0-1)
[2018-07-16 03:10] VITALS: BP 131/82
[2018-07-16 08:43] VITALS: BP 119/83
[2018-07-16 10:44] LABS: EOSINOPHILS % (AUTO) 1.2 % (0.0-8.0)
[2018-07-16 10:54] LABS: ALBUMIN 1.9 g/dL (3.5-5.0); ASPARTATE AMINOTRANSFERASE 15 U/L (10-37); BILIRUBIN,TOTAL 0.7 mg/dL (0.2-1.0); CARBON DIOXIDE 28 mmol/L (21-32); CHLORIDE 103 mmol/L (101-111); CREATININE 0.7 mg/dL (0.5-1.5); GLOMERULAR FILTR. RATE CALC 117 mL/min (>60); GLUCOSE,RANDOM 85 mg/dL (70-105); LIPASE 295 U/L (114-286); SODIUM SERUM 141 mmol/L (136-145); TOTAL PROTEIN, SERUM 6.3 g/dL (6.0-8.3); UREA NITROGEN, BLOOD 7 mg/dL (7-18)
[2018-07-16 10:56] LABS: ALANINE AMINOTRANSFERASE < 6 U/L (12-78); BASOPHILS % (AUTO) 0.3 % (0.0-5.0); HEMATOCRIT 27.7 % (36-48); LYMPHOCYTES % (AUTO) 9.3 % (21.0-51.0); MEAN CORPUSCULAR HEMOGLOBIN 27.6 pg (27.0-33.0); MEAN CORPUSCULAR HGB CONC 31.8 g/dL (32.0-36.0); MEAN CORPUSCULAR VOLUME 86.7 fL (79-99); MONOCYTES % (AUTO) 12.2 % (3.0-13.0); PLATELET COUNT (AUTO) 539 K/uL (130-400); RED CELL DISTRIBUTION WIDTH 20.1 % (11.0-15.5); WHITE BLOOD COUNT (AUTO) 19.6 K/uL (4.8-10.8)
[2018-07-16] MEDS: LACTATED RINGERS 1000ML 1,000 ML IV SCH ×2 (11:45→13:21)
[2018-07-16 12:45] VITALS: BP 146/86
[2018-07-16] MEDS: ONDANSETRON HCL MDV 20ML 2 MG/ML VIAL IVP PRN (13:25)
[2018-07-16] MEDS ORDERED: POTASSIUM CHLORIDE 20MEQ/100ML 100 ML IV PRN (13:30)
[2018-07-16] MEDS ORDERED: LIDOCAINE HCL-MPF 1% 2ML VIAL IVP PRN (13:30)
[2018-07-16 16:00] VITALS: BP 141/92
[2018-07-16] MEDS: LEVOFLOXACIN 500 MG/D5W 100 ML 100 ML IV SCH (16:29)
[2018-07-16 19:10] VITALS: BP 132/84
[2018-07-16 23:36] VITALS: BP 131/82
[2018-07-17] MEDS: ONDANSETRON HCL MDV 20ML 2 MG/ML VIAL IVP PRN ×2 (01:37→07:24)
[2018-07-17] MEDS: HYDROMORPHONE 1 MG/1 ML AMP IVP PRN ×3 (01:37→12:34)
[2018-07-17] MEDS: LACTATED RINGERS 1000ML 1,000 ML IV SCH ×3 (01:38→17:45)
[2018-07-17 04:00] VITALS: BP 122/83
[2018-07-17 07:56] VITALS: BP 149/95
[2018-07-17 10:34] LABS: BASOPHILS % (AUTO) 0.8 % (0.0-5.0); EOSINOPHILS % (AUTO) 1.8 % (0.0-8.0); HEMATOCRIT 23.1 % (36-48); LYMPHOCYTES % (AUTO) 10.3 % (21.0-51.0); MEAN CORPUSCULAR HEMOGLOBIN 28.6 pg (27.0-33.0); MEAN CORPUSCULAR HGB CONC 32.9 g/dL (32.0-36.0); MONOCYTES % (AUTO) 9.2 % (3.0-13.0); NEUTROPHILS % (AUTO) 77.9 % (40.0-77.0); PLATELET COUNT (AUTO) 594 K/uL (130-400); RED BLOOD CELL COUNT(AUTO) 2.66 MIL/uL (4.00-5.50); RED CELL DISTRIBUTION WIDTH 20.2 % (11.0-15.5); WHITE BLOOD COUNT (AUTO) 16.1 K/uL (4.8-10.8)
[2018-07-17 10:43] LABS: CREATININE 0.5 mg/dL (0.5-1.5); POTASSIUM 3.8 mmol/L (3.5-5.1)
[2018-07-17 11:11] VITALS: BP 130/88
[2018-07-17] MEDS ORDERED: HYDROMORPHONE HCL 0.5 MG/0.5 ML ML IVP PRN (13:15)
[2018-07-17 16:00] VITALS: BP 124/87
[2018-07-17] MEDS: LEVOFLOXACIN 500 MG/D5W 100 ML 100 ML IV SCH (16:03)
[2018-07-17 19:00] VITALS: BP 133/87
[2018-07-17] MEDS ORDERED: HYDROMORPHONE 1 MG/1 ML AMP ONE (20:42)
[2018-07-18] VITALS: BP 140/96
[2018-07-18] MEDS ORDERED: HYDROMORPHONE 1 MG/1 ML AMP ONE ×2 (02:54→10:09)
[2018-07-18 04:00] VITALS: BP 136/94
[2018-07-18 07:00] VITALS: BP 129/81
[2018-07-18] MEDS: ONDANSETRON HCL MDV 20ML 2 MG/ML VIAL IVP PRN ×2 (10:49→22:07)
[2018-07-18] MEDS: LACTATED RINGERS 1000ML 1,000 ML IV SCH (10:50)
[2018-07-18 11:00] VITALS: BP 133/100
[2018-07-18 16:00] VITALS: BP 145/98
[2018-07-18] MEDS: LEVOFLOXACIN 500 MG/D5W 100 ML 100 ML IV SCH (16:08)
[2018-07-18] MEDS: ACETAMINOPHEN-CODEINE 300/30MG TAB PO PRN ×2 (16:09→21:25)
[2018-07-18 19:00] VITALS: BP 139/96
[2018-07-19] VITALS: BP 141/97
[2018-07-19] MEDS: ACETAMINOPHEN-CODEINE 300/30MG TAB PO PRN ×3 (02:03→16:42)
[2018-07-19] MEDS: LACTATED RINGERS 1000ML 1,000 ML IV SCH (02:06)
[2018-07-19 03:58] VITALS: BP 139/86
[2018-07-19 04:48] LABS: BASOPHILS % (AUTO) 0.7 % (0.0-5.0); EOSINOPHILS % (AUTO) 2.7 % (0.0-8.0); LYMPHOCYTES % (AUTO) 20.5 % (21.0-51.0); MEAN CORPUSCULAR HEMOGLOBIN 29.2 pg (27.0-33.0); MEAN CORPUSCULAR HGB CONC 34.1 g/dL (32.0-36.0); MEAN CORPUSCULAR VOLUME 85.4 fL (79-99); MONOCYTES % (AUTO) 11.3 % (3.0-13.0); NEUTROPHILS % (AUTO) 64.8 % (40.0-77.0); PLATELET COUNT (AUTO) 651 K/uL (130-400); RED BLOOD CELL COUNT(AUTO) 2.69 MIL/uL (4.00-5.50); RED CELL DISTRIBUTION WIDTH 19.6 % (11.0-15.5); WHITE BLOOD COUNT (AUTO) 11.2 K/uL (4.8-10.8)
[2018-07-19 04:55] LABS: CREATININE 0.5 mg/dL (0.5-1.5); POTASSIUM 3.2 mmol/L (3.5-5.1)
[2018-07-19] MEDS ORDERED: LIDOCAINE HCL-MPF 1% 2ML VIAL IVP PRN (06:30)
[2018-07-19] MEDS ORDERED: POTASSIUM CHLORIDE 10% ELIXIR 20 MEQ/15 ML UDCUP PO PRN (06:30)
[2018-07-19] MEDS ORDERED: POTASSIUM CHLORIDE 20MEQ/100ML 100 ML IV PRN (06:30)
[2018-07-19] MEDS ORDERED: MAGNESIUM 2GM PREMIX 50ML 50 ML IV PRN (06:30)
[2018-07-19] MEDS: POTASSIUM CHLORIDE 20 MEQ ERTAB PO PRN ×3 (06:45→16:42)
[2018-07-19 08:00] VITALS: BP 132/96
[2018-07-19] MEDS: ONDANSETRON HCL MDV 20ML 2 MG/ML VIAL IVP PRN ×2 (09:24→16:51)
[2018-07-19 12:00] VITALS: BP 133/95
[2018-07-19 16:00] VITALS: BP 113/80
[2018-07-19] MEDS: LEVOFLOXACIN 500 MG/D5W 100 ML 100 ML IV SCH (16:41)
== END 2018-07-19 18:50 | disposition home or self-care (01) | DRG 282 ==
LOC: EDH 10:50 → EDHIP 10:51 → 3AH 17:01
PROVIDERS: ADMIT Hospitalist; ATTEND Hospitalist
DX: K85.90 Acute pancreatitis without necrosis or infection, unspecified (principal); E44.1 Mild protein-calorie malnutrition; N39.0 Urinary tract infection, site not specified; K86.1 Other chronic pancreatitis; E87.6 Hypokalemia; K86.3 Pseudocyst of pancreas; R53.81 Other malaise; D64.9 Anemia, unspecified; Z68.29 Body mass index [BMI] 29.0-29.9, adult; Z88.0 Allergy status to penicillin; Z87.891 Personal history of nicotine dependence; Z90.710 Acquired absence of both cervix and uterus; Z88.8 Allergy status to other drugs, medicaments and biological substances
CPT/HCPCS: 36415; 71045; 74177; 80048; 80053; 81001; 82550; 83605; 83690; 83735; 83874; 84484; 85025; 85610; 85730; 87040; 87088; 93005; J1170; J1956; J2185; J2270; J2405; J2997; J3475; J3480; J7030; J7120; Q9967

== ENCOUNTER 2018-08-27 17:32 | Inpatient (IN) | payer MEDICAID ==
[~2018-08-27] VITALS: Ht 180.3 cm; Wt 56.7 kg
[~2018-08-27 17:32] MED LIST changes: -CLON0.5T12 PO; +CLON0.5T23 PO; +IBUP-2071 PO; -IBUP-2077 PO; +IRON1CAP30 PO; +LEVO500T2 PO; +OMEP40CA37 PO; +ONDA4TAB7 PO; -ONDA8TAB12 PO; -TRAM-355 PO; +TRAM50TA4 PO
[2018-08-27 18:51] LABS: BASOPHILS % (AUTO) 1.8 % (0.0-5.0); EOSINOPHILS % (AUTO) 1.2 % (0.0-8.0); HEMATOCRIT 31.1 % (36-48); LYMPHOCYTES % (AUTO) 33.9 % (21.0-51.0); MEAN CORPUSCULAR HEMOGLOBIN 28.5 pg (27.0-33.0); MEAN CORPUSCULAR HGB CONC 32.3 g/dL (32.0-36.0); MEAN CORPUSCULAR VOLUME 88.2 fL (79-99); NEUTROPHILS % (AUTO) 59.1 % (40.0-77.0); NUCLEATED RED BLOOD CELLS 0.1 % (0.0-0.19); PLATELET COUNT (AUTO) 509 K/uL (130-400); RED BLOOD CELL COUNT(AUTO) 3.53 MIL/uL (4.00-5.50); RED CELL DISTRIBUTION WIDTH 19.1 % (11.0-15.5); WHITE BLOOD COUNT (AUTO) 8.8 K/uL (4.8-10.8)
[2018-08-27] MEDS ORDERED: PROMETHAZINE HCL 25 MG/ML 1ML AMPULE IM ONE (18:57)
[2018-08-27] MEDS ORDERED: SODIUM CHLORIDE 0.9% 1000ML 1,000 ML IV ONE (18:57)
[2018-08-27] MEDS ORDERED: FLUCONAZOLE 100 MG TAB ONE (18:57)
[2018-08-27] MEDS ORDERED: SODIUM CHLORIDE 0.9% 50 ML IV ONE (18:58)
[2018-08-27 19:30] LABS: CREATININE 1.2 mg/dL (0.5-1.5); POTASSIUM 3.7 mmol/L (3.5-5.1)
[2018-08-27 19:35] LABS: ALBUMIN 3.2 g/dL (3.5-5.0); BILIRUBIN,TOTAL 0.5 mg/dL (0.2-1.0); TOTAL PROTEIN, SERUM 8.6 g/dL (6.0-8.3)
[2018-08-27 20:02] LABS: APPEARANCE,URINE Cloudy (CLEAR); BILIRUBIN,URINE Moderate (NEGATIVE); COLOR,URINE Dark Yellow (YELLOW); GLUCOSE, URINE (UA) Negative (NEGATIVE); KETONES,URINE 40 mg/dL (NEGATIVE); LEUKOCYTE ESTERASE ,URINE Small (NEGATIVE); NITRATE,URINE Negative (NEGATIVE); OCCULT BLOOD,URINE Negative (NEGATIVE); PROTEIN,URINE POS 2+ (NEGATIVE)
[2018-08-27 20:10] LABS: AMORPHOUS SEDIMENT,UR Few /LPF (None Seen); BACTERIA,URINE Few /HPF (None Seen); MUCUS,URINE Many LPF (None Seen); RBC,URINE None Seen /HPF (0-1); SQUAMOUS EPITHELIAL CELL,UR Few /HPF (0-2)
[2018-08-27] MEDS ORDERED: KETOROLAC TROMETHAMINE 30MG/ML ONE (20:40)
[2018-08-27] MEDS ORDERED: IOHEXOL-350 75 ML VIAL IV ONE (20:42)
[2018-08-27] MEDS ORDERED: MEROPENEM 1 GM VIAL ONE (22:19)
[2018-08-28 01:22] VITALS: BP 143/98
[2018-08-28] MEDS ORDERED: KETOROLAC TROMETHAMINE 30MG/ML ONE (01:48)
[2018-08-28] MEDS ORDERED: ACETAMINOPHEN 325 MG TAB PO PRN (02:15)
[2018-08-28] MEDS ORDERED: VANCOMYCIN PROTOCOL PER PHARMACY IV SCH (02:15)
[2018-08-28 03:04] LABS: AMPHET/METH SCREEN,URINE NEGATIVE (NEGATIVE); BARBITURATE SCREEN, URINE NEGATIVE (NEGATIVE); BENZODIAZEPINES SCREEN,URINE NEGATIVE (NEGATIVE); CANNABINOID SCREEN,URINE NEGATIVE (NEGATIVE); COCAINE SCREEN,URINE NEGATIVE (NEGATIVE); OPIATE SCREEN,URINE POSITIVE (NEGATIVE); PHENCYCLIDINE SCREEN,URINE NEGATIVE (NEGATIVE)
[2018-08-28] MEDS: LEVOFLOXACIN 500 MG/D5W 100 ML 100 ML IV SCH (03:26)
[2018-08-28 04:00] VITALS: BP 126/86
[2018-08-28] MEDS: VANCOMYCIN 1GM+NS 250ML 250 ML IV SCH ×2 (05:03→14:44)
[2018-08-28 06:22] LABS: BASOPHILS % (AUTO) 0.8 % (0.0-5.0); EOSINOPHILS % (AUTO) 3.3 % (0.0-8.0); HEMATOCRIT 26.9 % (36-48); LYMPHOCYTES % (AUTO) 28.8 % (21.0-51.0); MEAN CORPUSCULAR HEMOGLOBIN 29.6 pg (27.0-33.0); MEAN CORPUSCULAR HGB CONC 33.4 g/dL (32.0-36.0); MEAN CORPUSCULAR VOLUME 88.6 fL (79-99); MONOCYTES % (AUTO) 6.5 % (3.0-13.0); NEUTROPHILS % (AUTO) 60.6 % (40.0-77.0); PLATELET COUNT (AUTO) 423 K/uL (130-400); RED BLOOD CELL COUNT(AUTO) 3.04 MIL/uL (4.00-5.50); RED CELL DISTRIBUTION WIDTH 19.1 % (11.0-15.5); WHITE BLOOD COUNT (AUTO) 8.1 K/uL (4.8-10.8)
[2018-08-28 06:38] LABS: ALBUMIN 2.6 g/dL (3.5-5.0); BILIRUBIN,TOTAL 0.5 mg/dL (0.2-1.0); CREATININE 1.2 mg/dL (0.5-1.5); CRP QUANTITATIVE 7.9 mg/L (0.00-9.0); TOTAL PROTEIN, SERUM 7.1 g/dL (6.0-8.3)
[2018-08-28 07:00] VITALS: BP 138/104
[2018-08-28] MEDS: KETOROLAC TROMETHAMINE 30MG/ML IV PRN ×2 (09:11→17:46)
[2018-08-28] MEDS: PANTOPRAZOLE SODIUM 40 MG TABLET.DR PO SCH (09:12)
[2018-08-28] MEDS: ENOXAPARIN SODIUM 30 MG/0.3 ML SQ SCH (09:12)
[2018-08-28] MEDS: SODIUM CHLORIDE 0.9% 1000ML 1,000 ML IV SCH ×3 (09:17→18:00)
[2018-08-28] MEDS: ONDANSETRON HCL 4 MG/2 ML VIAL IV PRN ×3 (10:12→21:32)
[2018-08-28 11:00] VITALS: BP 133/106
[2018-08-28 16:00] VITALS: BP 140/105
[2018-08-28 19:05] VITALS: BP 137/112
[2018-08-29 00:10] VITALS: BP 125/88
[2018-08-29] MEDS: KETOROLAC TROMETHAMINE 30MG/ML IV PRN ×3 (00:23→21:21)
[2018-08-29] MEDS: LEVOFLOXACIN 500 MG/D5W 100 ML 100 ML IV SCH (03:13)
[2018-08-29 04:12] VITALS: BP 127/83
[2018-08-29] MEDS: VANCOMYCIN 1GM+NS 250ML 250 ML IV SCH ×2 (04:37→15:57)
[2018-08-29 05:55] LABS: BASOPHILS % (AUTO) 1.6 % (0.0-5.0); EOSINOPHILS % (AUTO) 5.2 % (0.0-8.0); HEMATOCRIT 24.2 % (36-48); LYMPHOCYTES % (AUTO) 28.2 % (21.0-51.0); MEAN CORPUSCULAR HEMOGLOBIN 29.6 pg (27.0-33.0); MEAN CORPUSCULAR VOLUME 87.1 fL (79-99); MONOCYTES % (AUTO) 6.8 % (3.0-13.0); NEUTROPHILS % (AUTO) 58.2 % (40.0-77.0); PLATELET COUNT (AUTO) 337 K/uL (130-400); RED BLOOD CELL COUNT(AUTO) 2.78 MIL/uL (4.00-5.50); RED CELL DISTRIBUTION WIDTH 18.9 % (11.0-15.5); WHITE BLOOD COUNT (AUTO) 6.6 K/uL (4.8-10.8)
[2018-08-29 06:26] LABS: CREATININE 1.2 mg/dL (0.5-1.5); POTASSIUM 3.6 mmol/L (3.5-5.1)
[2018-08-29 07:00] VITALS: BP 145/110
[2018-08-29] MEDS ORDERED: GADODIAMIDE 10 MMOL/20 ML ML IV ONE (08:21)
[2018-08-29] MEDS: PANTOPRAZOLE SODIUM 40 MG TABLET.DR PO SCH (09:18)
[2018-08-29] MEDS: ENOXAPARIN SODIUM 30 MG/0.3 ML SQ SCH (09:18)
[2018-08-29] MEDS: SODIUM CHLORIDE 0.9% 1000ML 1,000 ML IV SCH ×2 (09:19→17:46)
[2018-08-29 11:00] VITALS: BP 119/91
[2018-08-29] MEDS: LIPASE/PROTEASE/AMYLASE 5000/17000/24000 PO SCH ×2 (13:14→17:45)
[2018-08-29] MEDS: ONDANSETRON HCL 4 MG/2 ML VIAL IV PRN ×2 (15:59→21:16)
[2018-08-29 16:00] VITALS: BP 149/100
[2018-08-29 19:20] VITALS: BP 139/93
[2018-08-29] MEDS: LACTATED RINGERS 1000ML 1,000 ML IV SCH (21:35)
[2018-08-30 00:20] VITALS: BP 142/96
[2018-08-30] MEDS: LEVOFLOXACIN 500 MG/D5W 100 ML 100 ML IV SCH (02:11)
[2018-08-30] MEDS: ONDANSETRON HCL 4 MG/2 ML VIAL IV PRN ×3 (04:15→20:14)
[2018-08-30] MEDS: KETOROLAC TROMETHAMINE 30MG/ML IV PRN ×3 (04:16→20:15)
[2018-08-30] MEDS ORDERED: SULF1TAB42 PO (04:28)
[2018-08-30] MEDS ORDERED: CEPH500C2 PO (04:28)
[2018-08-30 04:30] VITALS: BP 138/100
[2018-08-30] MEDS ORDERED: PANT40TA25 PO (04:32)
[2018-08-30] MEDS: VANCOMYCIN 1GM+NS 250ML 250 ML IV SCH ×2 (04:53→17:56)
[2018-08-30 05:21] LABS: HEMATOCRIT 24.7 % (36-48); MEAN CORPUSCULAR HEMOGLOBIN 29.4 pg (27.0-33.0); MEAN CORPUSCULAR HGB CONC 33.3 g/dL (32.0-36.0); MEAN CORPUSCULAR VOLUME 88.2 fL (79-99); PLATELET COUNT (AUTO) 291 K/uL (130-400); RED CELL DISTRIBUTION WIDTH 18.6 % (11.0-15.5); WHITE BLOOD COUNT (AUTO) 5.7 K/uL (4.8-10.8)
[2018-08-30 05:38] LABS: ALBUMIN 2.6 g/dL (3.5-5.0); BILIRUBIN,TOTAL 0.3 mg/dL (0.2-1.0); POTASSIUM 3.6 mmol/L (3.5-5.1); TOTAL PROTEIN, SERUM 6.7 g/dL (6.0-8.3)
[2018-08-30 08:37] VITALS: BP 142/102
[2018-08-30] MEDS: LIPASE/PROTEASE/AMYLASE 5000/17000/24000 PO SCH ×3 (10:01→17:56)
[2018-08-30] MEDS: ENOXAPARIN SODIUM 30 MG/0.3 ML SQ SCH (10:01)
[2018-08-30] MEDS: PANTOPRAZOLE SODIUM 40 MG TABLET.DR PO SCH (10:01)
[2018-08-30] MEDS: LACTATED RINGERS 1000ML 1,000 ML IV SCH ×3 (10:04→23:08)
[2018-08-30 11:41] VITALS: BP 135/97
[2018-08-30 15:55] VITALS: BP_SYST 134; BP_SYST 137; BP_DIAS 74; BP_DIAS 94
[2018-08-30 20:00] VITALS: BP 145/98
[2018-08-31] VITALS: BP 131/88
[2018-08-31] MEDS: LEVOFLOXACIN 500 MG/D5W 100 ML 100 ML IV SCH (01:39)
[2018-08-31] MEDS: LACTATED RINGERS 1000ML 1,000 ML IV SCH ×3 (01:40→22:16)
[2018-08-31] MEDS: VANCOMYCIN 1GM+NS 250ML 250 ML IV SCH ×2 (02:44→15:24)
[2018-08-31] MEDS: ONDANSETRON HCL 4 MG/2 ML VIAL IV PRN (02:54)
[2018-08-31] MEDS: KETOROLAC TROMETHAMINE 30MG/ML IV PRN ×3 (02:55→22:20)
[2018-08-31 04:00] VITALS: BP 147/101
[2018-08-31 05:39] LABS: HEMATOCRIT 24.1 % (36-48); MEAN CORPUSCULAR HGB CONC 33.1 g/dL (32.0-36.0); MEAN CORPUSCULAR VOLUME 87.5 fL (79-99); PLATELET COUNT (AUTO) 263 K/uL (130-400); RED BLOOD CELL COUNT(AUTO) 2.76 MIL/uL (4.00-5.50); RED CELL DISTRIBUTION WIDTH 18.2 % (11.0-15.5); WHITE BLOOD COUNT (AUTO) 5.8 K/uL (4.8-10.8)
[2018-08-31 06:16] LABS: CREATININE 0.8 mg/dL (0.5-1.5); POTASSIUM 3.5 mmol/L (3.5-5.1)
[2018-08-31] MEDS: LIPASE/PROTEASE/AMYLASE 5000/17000/24000 PO SCH ×3 (08:50→16:46)
[2018-08-31] MEDS: PANTOPRAZOLE SODIUM 40 MG TABLET.DR PO SCH (08:51)
[2018-08-31] MEDS: ENOXAPARIN SODIUM 30 MG/0.3 ML SQ SCH (08:55)
[2018-08-31 09:42] VITALS: BP 154/106
[2018-08-31 11:32] VITALS: BP 146/103
[2018-08-31 15:54] VITALS: BP 132/99
[2018-08-31 20:00] VITALS: BP_SYST 127; BP_SYST 180; BP_DIAS 100; BP_DIAS 58
[2018-08-31] MEDS: DOCUSATE SODIUM 100 MG CAP PO SCH (22:16)
[2018-09-01] VITALS (10 sets, daily range): BP systolic 126–177; BP diastolic 73–106
[2018-09-01] MEDS: LEVOFLOXACIN 500 MG/D5W 100 ML 100 ML IV SCH (02:30)
[2018-09-01] MEDS: VANCOMYCIN 1GM+NS 250ML 250 ML IV SCH (03:18)
[2018-09-01 05:52] LABS: HEMATOCRIT 24.4 % (36-48); MEAN CORPUSCULAR HEMOGLOBIN 29.7 pg (27.0-33.0); MEAN CORPUSCULAR VOLUME 87.6 fL (79-99); PLATELET COUNT (AUTO) 275 K/uL (130-400); RED BLOOD CELL COUNT(AUTO) 2.78 MIL/uL (4.00-5.50); RED CELL DISTRIBUTION WIDTH 18.7 % (11.0-15.5); WHITE BLOOD COUNT (AUTO) 6.1 K/uL (4.8-10.8)
[2018-09-01] MEDS: ONDANSETRON HCL 4 MG/2 ML VIAL IV PRN (05:58)
[2018-09-01] MEDS: KETOROLAC TROMETHAMINE 30MG/ML IV PRN ×2 (05:58→23:16)
[2018-09-01 06:04] LABS: CREATININE 0.9 mg/dL (0.5-1.5); POTASSIUM 3.5 mmol/L (3.5-5.1)
[2018-09-01] MEDS: PANTOPRAZOLE SODIUM 40 MG TABLET.DR PO SCH (09:40)
[2018-09-01] MEDS: DOCUSATE SODIUM 100 MG CAP PO SCH ×2 (09:40→19:34)
[2018-09-01] MEDS: LIPASE/PROTEASE/AMYLASE 5000/17000/24000 PO SCH ×3 (09:41→17:12)
[2018-09-01] MEDS: ENOXAPARIN SODIUM 30 MG/0.3 ML SQ SCH (09:41)
[2018-09-01] MEDS: HYDROCODONE/ACETAMINOPHEN 5/325 MG TAB PO PRN ×2 (10:58→19:34)
[2018-09-01] MEDS: LACTATED RINGERS 1000ML 1,000 ML IV SCH (14:31)
[2018-09-01] MEDS ORDERED: COMPOUND IV REFRIGERATED 1 EACH IVSOLN MISC PRN (15:45)
[2018-09-01 16:13] LABS: APPEARANCE,URINE Turbid (CLEAR); BILIRUBIN,URINE Negative (NEGATIVE); COLOR,URINE Dark Yellow (YELLOW); GLUCOSE, URINE (UA) TRACE mg/dL (NEGATIVE); KETONES,URINE Trace mg/dL (NEGATIVE); LEUKOCYTE ESTERASE ,URINE Moderate (NEGATIVE); NITRATE,URINE Negative (NEGATIVE); OCCULT BLOOD,URINE Negative (NEGATIVE); PH,URINE 6.5 (5.0-8.0); PROTEIN,URINE POS 1+ (NEGATIVE)
[2018-09-01 16:54] LABS: RBC,URINE None Seen /HPF (0-1); WBC,URINE 26-50 /HPF (0-1)
[2018-09-01 16:55] LABS: BACTERIA,URINE Many /HPF (None Seen); COARSE GRANULAR CASTS,URINE 26-50 /LPF (None Seen)
[2018-09-01] MEDS: VANCOMYCIN 0.75 GM in SODIUM CHLORIDE 0.9% 250 ML IV SCH (21:01)
[2018-09-02] MEDS: LEVOFLOXACIN 500 MG/D5W 100 ML 100 ML IV SCH (01:55)
[2018-09-02] MEDS: HYDROCODONE/ACETAMINOPHEN 5/325 MG TAB PO PRN ×3 (01:55→17:34)
[2018-09-02 03:00] VITALS: BP 132/88
[2018-09-02] MEDS ORDERED: KETOROLAC TROMETHAMINE 30MG/ML ONE ×2 (05:17→09:28)
[2018-09-02] MEDS: ONDANSETRON HCL 4 MG/2 ML VIAL IV PRN ×3 (05:20→22:06)
[2018-09-02 05:49] LABS: HEMATOCRIT 21.5 % (36-48); MEAN CORPUSCULAR HGB CONC 33.3 g/dL (32.0-36.0); MEAN CORPUSCULAR VOLUME 86.9 fL (79-99); NUCLEATED RED BLOOD CELLS 0.1 % (0.0-0.19); PLATELET COUNT (AUTO) 237 K/uL (130-400); RED BLOOD CELL COUNT(AUTO) 2.47 MIL/uL (4.00-5.50); RED CELL DISTRIBUTION WIDTH 18.4 % (11.0-15.5); WHITE BLOOD COUNT (AUTO) 5.1 K/uL (4.8-10.8)
[2018-09-02 05:57] LABS: CREATININE 1.2 mg/dL (0.5-1.5); POTASSIUM 3.4 mmol/L (3.5-5.1)
[2018-09-02] MEDS: LIPASE/PROTEASE/AMYLASE 5000/17000/24000 PO SCH ×3 (08:00→17:33)
[2018-09-02 08:04] VITALS: BP 136/89
[2018-09-02] MEDS: DOCUSATE SODIUM 100 MG CAP PO SCH ×2 (09:36→21:56)
[2018-09-02] MEDS: ENOXAPARIN SODIUM 30 MG/0.3 ML SQ SCH (09:36)
[2018-09-02] MEDS: LACTATED RINGERS 1000ML 1,000 ML IV SCH (09:36)
[2018-09-02] MEDS: PANTOPRAZOLE SODIUM 40 MG TABLET.DR PO SCH (09:36)
[2018-09-02] MEDS: VANCOMYCIN 0.75 GM in SODIUM CHLORIDE 0.9% 250 ML IV SCH ×2 (09:37→21:59)
[2018-09-02 12:15] VITALS: BP 144/94
[2018-09-02] MEDS ORDERED: COMPOUND IV MISC 1 EACH IVSOLN MISC PRN (14:15)
[2018-09-02 16:34] VITALS: BP 121/96
[2018-09-02] MEDS: KETOROLAC TROMETHAMINE 30MG/ML IM PRN ×2 (17:34→23:39)
[2018-09-02 19:25] VITALS: BP 139/91
[2018-09-03] VITALS (7 sets, daily range): BP systolic 120–139; BP diastolic 82–98
[2018-09-03] MEDS: LEVOFLOXACIN 500 MG/D5W 100 ML 100 ML IV SCH (02:18)
[2018-09-03] MEDS: HYDROCODONE/ACETAMINOPHEN 5/325 MG TAB PO PRN ×3 (02:24→16:10)
[2018-09-03 04:45] LABS: HEMATOCRIT 21.3 % (36-48); MEAN CORPUSCULAR HEMOGLOBIN 29.1 pg (27.0-33.0); MEAN CORPUSCULAR HGB CONC 33.7 g/dL (32.0-36.0); MEAN CORPUSCULAR VOLUME 86.3 fL (79-99); PLATELET COUNT (AUTO) 263 K/uL (130-400); RED BLOOD CELL COUNT(AUTO) 2.47 MIL/uL (4.00-5.50); RED CELL DISTRIBUTION WIDTH 17.7 % (11.0-15.5); WHITE BLOOD COUNT (AUTO) 5.6 K/uL (4.8-10.8)
[2018-09-03 05:01] LABS: CREATININE 1.1 mg/dL (0.5-1.5); POTASSIUM 3.3 mmol/L (3.5-5.1)
[2018-09-03] MEDS: KETOROLAC TROMETHAMINE 30MG/ML IM PRN ×2 (06:38→16:10)
[2018-09-03] MEDS: LACTATED RINGERS 1000ML 1,000 ML IV SCH ×2 (06:39→16:31)
[2018-09-03] MEDS: VANCOMYCIN 0.75 GM in SODIUM CHLORIDE 0.9% 250 ML IV SCH ×2 (08:32→20:18)
[2018-09-03] MEDS: LIPASE/PROTEASE/AMYLASE 5000/17000/24000 PO SCH ×3 (08:37→16:10)
[2018-09-03] MEDS: PANTOPRAZOLE SODIUM 40 MG TABLET.DR PO SCH (08:37)
[2018-09-03] MEDS: DOCUSATE SODIUM 100 MG CAP PO SCH ×2 (08:38→20:18)
[2018-09-03] MEDS: ENOXAPARIN SODIUM 30 MG/0.3 ML SQ SCH (08:40)
[2018-09-03] MEDS: IRON SUCROSE COMPLEX 100 MG in SODIUM CHLORIDE 0.9% 50 ML IV SCH (09:59)
[2018-09-03] MEDS ORDERED: POTASSIUM CHLORIDE 20 MEQ ERTAB PO ONE (16:14)
[2018-09-03] MEDS ORDERED: POTASSIUM CHLORIDE 20MEQ/100ML 100 ML IV PRN (17:00)
[2018-09-03] MEDS ORDERED: LIDOCAINE HCL-MPF 1% 2ML VIAL IVP PRN (17:00)
[2018-09-03] MEDS ORDERED: POTASSIUM CHLORIDE 10% ELIXIR 20 MEQ/15 ML UDCUP PO PRN (17:00)
[2018-09-03] MEDS: MAGNESIUM 2GM PREMIX 50ML 50 ML IV PRN (17:57)
[2018-09-03] MEDS: POTASSIUM CHLORIDE 20 MEQ ERTAB PO PRN (17:58)
[2018-09-03] MEDS: ONDANSETRON HCL 4 MG/2 ML VIAL IV PRN (23:39)
[2018-09-03] MEDS: KETOROLAC TROMETHAMINE 30MG/ML IV PRN (23:40)
[2018-09-04] VITALS (7 sets, daily range): BP systolic 114–148; BP diastolic 83–96
[2018-09-04] MEDS: LEVOFLOXACIN 500 MG/D5W 100 ML 100 ML IV SCH (01:09)
[2018-09-04 05:36] LABS: MEAN CORPUSCULAR HEMOGLOBIN 29.2 pg (27.0-33.0); MEAN CORPUSCULAR HGB CONC 33.6 g/dL (32.0-36.0); MEAN CORPUSCULAR VOLUME 86.8 fL (79-99); PLATELET COUNT (AUTO) 262 K/uL (130-400); RED BLOOD CELL COUNT(AUTO) 2.35 MIL/uL (4.00-5.50); RED CELL DISTRIBUTION WIDTH 17.4 % (11.0-15.5); WHITE BLOOD COUNT (AUTO) 6.3 K/uL (4.8-10.8)
[2018-09-04 05:40] LABS: ALBUMIN 2.3 g/dL (3.5-5.0); BILIRUBIN,TOTAL 0.3 mg/dL (0.2-1.0); CREATININE 1.2 mg/dL (0.5-1.5); MAGNESIUM 1.5 mg/dL (1.80-2.40); POTASSIUM 3.9 mmol/L (3.5-5.1); TOTAL PROTEIN, SERUM 5.8 g/dL (6.0-8.3)
[2018-09-04 05:42] LABS: HEMATOCRIT 20.4 % (36-48)
[2018-09-04] MEDS: KETOROLAC TROMETHAMINE 30MG/ML IV PRN ×3 (06:00→22:33)
[2018-09-04] MEDS: ENOXAPARIN SODIUM 30 MG/0.3 ML SQ SCH (09:00)
[2018-09-04] MEDS: LIPASE/PROTEASE/AMYLASE 5000/17000/24000 PO SCH ×2 (09:22→17:30)
[2018-09-04] MEDS: PANTOPRAZOLE SODIUM 40 MG TABLET.DR PO SCH (09:22)
[2018-09-04] MEDS: DOCUSATE SODIUM 100 MG CAP PO SCH ×2 (09:22→22:34)
[2018-09-04] MEDS: IRON SUCROSE COMPLEX 100 MG in SODIUM CHLORIDE 0.9% 50 ML IV SCH (09:23)
[2018-09-04] MEDS: VANCOMYCIN 0.75 GM in SODIUM CHLORIDE 0.9% 250 ML IV SCH ×2 (09:24→21:00)
[2018-09-04] MEDS: LACTATED RINGERS 1000ML 1,000 ML IV SCH (10:05)
[2018-09-04] MEDS: ONDANSETRON HCL 4 MG/2 ML VIAL IV PRN (14:24)
[2018-09-04] MEDS ORDERED: SODIUM CHLORIDE 0.9% 250 ML IV ONE (14:50)
[2018-09-04] MEDS ORDERED: NITR100C4 PO (14:57)
[2018-09-04] MEDS ORDERED: SODIUM CHLORIDE 0.9% 500ML 500 ML IV ONE (22:37)
[2018-09-04] MEDS: MAGNESIUM 2GM PREMIX 50ML 50 ML IV PRN (22:40)
[2018-09-05] MEDS: LACTATED RINGERS 1000ML 1,000 ML IV SCH (01:51)
[2018-09-05 03:35] VITALS: BP 161/103
[2018-09-05] MEDS: ONDANSETRON HCL 4 MG/2 ML VIAL IV PRN ×3 (03:39→20:08)
[2018-09-05] MEDS: LEVOFLOXACIN 500 MG/D5W 100 ML 100 ML IV SCH (03:40)
[2018-09-05] MEDS: HYDROCODONE/ACETAMINOPHEN 5/325 MG TAB PO PRN ×2 (03:40→09:54)
[2018-09-05 04:59] LABS: BASOPHILS % (AUTO) 0.5 % (0.0-5.0); EOSINOPHILS % (AUTO) 6.3 % (0.0-8.0); MEAN CORPUSCULAR HEMOGLOBIN 29.5 pg (27.0-33.0); MEAN CORPUSCULAR HGB CONC 34.1 g/dL (32.0-36.0); MEAN CORPUSCULAR VOLUME 86.4 fL (79-99); MONOCYTES % (AUTO) 11.1 % (3.0-13.0); NEUTROPHILS % (AUTO) 59.1 % (40.0-77.0); NUCLEATED RED BLOOD CELLS 0.1 % (0.0-0.19); PLATELET COUNT (AUTO) 232 K/uL (130-400); RED CELL DISTRIBUTION WIDTH 15.9 % (11.0-15.5); WHITE BLOOD COUNT (AUTO) 6.8 K/uL (4.8-10.8)
[2018-09-05 05:02] LABS: CREATININE 1.2 mg/dL (0.5-1.5); POTASSIUM 3.8 mmol/L (3.5-5.1)
[2018-09-05 08:00] VITALS: BP_SYST 138; BP_SYST 161; BP_DIAS 109; BP_DIAS 94
[2018-09-05] MEDS: DOCUSATE SODIUM 100 MG CAP PO SCH ×2 (09:00→20:19)
[2018-09-05] MEDS: PANTOPRAZOLE SODIUM 40 MG TABLET.DR PO SCH (09:00)
[2018-09-05] MEDS: LIPASE/PROTEASE/AMYLASE 5000/17000/24000 PO SCH ×3 (09:00→18:03)
[2018-09-05] MEDS: ENOXAPARIN SODIUM 30 MG/0.3 ML SQ SCH (09:01)
[2018-09-05] MEDS: VANCOMYCIN 0.75 GM in SODIUM CHLORIDE 0.9% 250 ML IV SCH ×2 (11:22→21:48)
[2018-09-05] MEDS: HYDRALAZINE HCL 20 MG/ML VIAL IV PRN (11:41)
[2018-09-05] MEDS: IRON SUCROSE COMPLEX 100 MG in SODIUM CHLORIDE 0.9% 50 ML IV SCH (11:42)
[2018-09-05 16:00] VITALS: BP 149/104
[2018-09-05 19:00] VITALS: BP_SYST 156; BP_SYST 166; BP_DIAS 100; BP_DIAS 103
[2018-09-05 19:30] LABS: BASOPHILS % (AUTO) 0.4 % (0.0-5.0); EOSINOPHILS % (AUTO) 5.7 % (0.0-8.0); HEMATOCRIT 28.4 % (36-48); LYMPHOCYTES % (AUTO) 23.1 % (21.0-51.0); MEAN CORPUSCULAR HEMOGLOBIN 28.6 pg (27.0-33.0); MEAN CORPUSCULAR VOLUME 86.6 fL (79-99); MONOCYTES % (AUTO) 11.4 % (3.0-13.0); NEUTROPHILS % (AUTO) 59.4 % (40.0-77.0); PLATELET COUNT (AUTO) 263 K/uL (130-400); RED BLOOD CELL COUNT(AUTO) 3.27 MIL/uL (4.00-5.50); RED CELL DISTRIBUTION WIDTH 15.8 % (11.0-15.5); WHITE BLOOD COUNT (AUTO) 7.9 K/uL (4.8-10.8)
[2018-09-05 19:43] LABS: INR 0.96 (0.85-1.15); PROTHROMBIN TIME 10.1 SEC (9.6-11.6)
[2018-09-05 19:50] LABS: CREATININE 1.1 mg/dL (0.5-1.5); POTASSIUM 3.8 mmol/L (3.5-5.1)
[2018-09-05] MEDS: KETOROLAC TROMETHAMINE 30MG/ML IV PRN (20:08)
[2018-09-05 23:00] VITALS: BP 159/96
[2018-09-06] VITALS (25 sets, daily range): BP systolic 130–166; BP diastolic 86–112
[2018-09-06] MEDS: LACTATED RINGERS 1000ML 1,000 ML IV SCH (01:51)
[2018-09-06] MEDS: ONDANSETRON HCL 4 MG/2 ML VIAL IV PRN ×3 (03:23→20:12)
[2018-09-06] MEDS: LEVOFLOXACIN 500 MG/D5W 100 ML 100 ML IV SCH (03:23)
[2018-09-06] MEDS: HYDRALAZINE HCL 20 MG/ML VIAL IV PRN (03:24)
[2018-09-06] MEDS: KETOROLAC TROMETHAMINE 30MG/ML IV PRN ×2 (03:24→20:13)
[2018-09-06 04:51] LABS: HEMATOCRIT 27.6 % (36-48); MEAN CORPUSCULAR HGB CONC 34.4 g/dL (32.0-36.0); PLATELET COUNT (AUTO) 299 K/uL (130-400); RED BLOOD CELL COUNT(AUTO) 3.18 MIL/uL (4.00-5.50); RED CELL DISTRIBUTION WIDTH 15.7 % (11.0-15.5); WHITE BLOOD COUNT (AUTO) 7.2 K/uL (4.8-10.8)
[2018-09-06 05:06] LABS: INR 0.97 (0.85-1.15); PARTIAL THROMBOPLASTIN TIME 36.9 SEC (26.3-35.5); PROTHROMBIN TIME 10.2 SEC (9.6-11.6)
[2018-09-06 05:09] LABS: ALBUMIN 2.6 g/dL (3.5-5.0); BILIRUBIN,TOTAL 0.5 mg/dL (0.2-1.0); CREATININE 1.1 mg/dL (0.5-1.5); POTASSIUM 3.7 mmol/L (3.5-5.1); TOTAL PROTEIN, SERUM 6.7 g/dL (6.0-8.3)
[2018-09-06 05:19] LABS: % IRON SATURATION 63.1 % (22-44)
[2018-09-06] MEDS ORDERED: LIDOCAINE HCL-MPF 2% 5ML VIAL ONE (06:15)
[2018-09-06] MEDS ORDERED: GLYCOPYRROLATE 0.2 MG/ML 5 ML VIAL ONE (06:15)
[2018-09-06] MEDS ORDERED: PROPOFOL 1000 MG/100 ML 100 ML IV ONE (06:15)
[2018-09-06] MEDS ORDERED: ESMOLOL HCL 10 MG/ML 10 ML VIAL ONE (06:41)
[2018-09-06] MEDS ORDERED: LABETALOL HCL 5 MG/ML 20ML VIAL IV ONE (06:54)
[2018-09-06] MEDS ORDERED: MORPHINE SULFATE 4 MG/1ML SYG ONE ×2 (07:10→07:24)
[2018-09-06] MEDS: LIPASE/PROTEASE/AMYLASE 5000/17000/24000 PO SCH ×3 (08:26→17:00)
[2018-09-06] MEDS: DOCUSATE SODIUM 100 MG CAP PO SCH ×2 (08:26→20:12)
[2018-09-06] MEDS: PANTOPRAZOLE SODIUM 40 MG TABLET.DR PO SCH (08:27)
[2018-09-06] MEDS: VANCOMYCIN 0.75 GM in SODIUM CHLORIDE 0.9% 250 ML IV SCH ×2 (08:27→20:12)
[2018-09-06] MEDS: ENOXAPARIN SODIUM 30 MG/0.3 ML SQ SCH (08:28)
[2018-09-06] MEDS: MAGNESIUM 2GM PREMIX 50ML 50 ML IV PRN (10:02)
[2018-09-06] MEDS ORDERED: PEG 3350/NA SULF,BICARB,CL/KCL 4000 ML SOLN PO SCH (15:00)
[2018-09-06] MEDS: HYDROCODONE/ACETAMINOPHEN 5/325 MG TAB PO PRN (15:11)
[2018-09-06] MEDS: VANCOMYCIN 500MG+NS 100ML 100 ML IV SCH (21:34)
[2018-09-07] VITALS (27 sets, daily range): BP systolic 119–186; BP diastolic 70–121
[2018-09-07] MEDS: LACTATED RINGERS 1000ML 1,000 ML IV SCH (00:52)
[2018-09-07] MEDS: LEVOFLOXACIN 500 MG/D5W 100 ML 100 ML IV SCH (01:40)
[2018-09-07 04:48] LABS: BASOPHILS % (AUTO) 0.5 % (0.0-5.0); EOSINOPHILS % (AUTO) 5.6 % (0.0-8.0); HEMATOCRIT 27.6 % (36-48); LYMPHOCYTES % (AUTO) 24.8 % (21.0-51.0); MEAN CORPUSCULAR HEMOGLOBIN 28.9 pg (27.0-33.0); MEAN CORPUSCULAR HGB CONC 33.2 g/dL (32.0-36.0); MEAN CORPUSCULAR VOLUME 87.1 fL (79-99); MONOCYTES % (AUTO) 13.8 % (3.0-13.0); NEUTROPHILS % (AUTO) 55.3 % (40.0-77.0); PLATELET COUNT (AUTO) 269 K/uL (130-400); RED BLOOD CELL COUNT(AUTO) 3.16 MIL/uL (4.00-5.50); WHITE BLOOD COUNT (AUTO) 6.1 K/uL (4.8-10.8)
[2018-09-07 04:58] LABS: CREATININE 1.3 mg/dL (0.5-1.5); MAGNESIUM 1.6 mg/dL (1.80-2.40); POTASSIUM 3.6 mmol/L (3.5-5.1)
[2018-09-07] MEDS: KETOROLAC TROMETHAMINE 30MG/ML IV PRN ×2 (05:13→19:47)
[2018-09-07] MEDS: MAGNESIUM 2GM PREMIX 50ML 50 ML IV PRN (05:13)
[2018-09-07] MEDS: ONDANSETRON HCL 4 MG/2 ML VIAL IV PRN ×2 (05:13→15:01)
[2018-09-07] MEDS: HYDRALAZINE HCL 20 MG/ML VIAL IV PRN ×2 (07:59→14:50)
[2018-09-07] MEDS: LIPASE/PROTEASE/AMYLASE 5000/17000/24000 PO SCH ×3 (08:00→18:25)
[2018-09-07] MEDS: DOCUSATE SODIUM 100 MG CAP PO SCH ×2 (09:00→19:46)
[2018-09-07] MEDS: ENOXAPARIN SODIUM 30 MG/0.3 ML SQ SCH (09:00)
[2018-09-07] MEDS: VANCOMYCIN 500MG+NS 100ML 100 ML IV SCH ×2 (10:33→21:00)
[2018-09-07] MEDS ORDERED: LIDOCAINE HCL-MPF 2% 5ML VIAL ONE (13:31)
[2018-09-07] MEDS ORDERED: PROPOFOL 10 MG/ML 20ML VIAL IV ONE (13:34)
[2018-09-07] MEDS: PANTOPRAZOLE SODIUM 40 MG TABLET.DR PO SCH (14:50)
[2018-09-07] MEDS: METOPROLOL TARTRATE 25 MG TAB PO SCH ×2 (18:25→19:46)
[2018-09-08] MEDS: LACTATED RINGERS 1000ML 1,000 ML IV SCH (00:29)
[2018-09-08 00:45] VITALS: BP 130/76
[2018-09-08] MEDS: LEVOFLOXACIN 500 MG/D5W 100 ML 100 ML IV SCH (01:32)
[2018-09-08 04:00] VITALS: BP 136/90
[2018-09-08] MEDS: KETOROLAC TROMETHAMINE 30MG/ML IV PRN ×2 (05:44→16:04)
[2018-09-08 06:03] LABS: HEMATOCRIT 26.1 % (36-48); MEAN CORPUSCULAR HEMOGLOBIN 30.1 pg (27.0-33.0); MEAN CORPUSCULAR HGB CONC 34.1 g/dL (32.0-36.0); MEAN CORPUSCULAR VOLUME 88.1 fL (79-99); PLATELET COUNT (AUTO) 319 K/uL (130-400); RED BLOOD CELL COUNT(AUTO) 2.96 MIL/uL (4.00-5.50); RED CELL DISTRIBUTION WIDTH 15.6 % (11.0-15.5); WHITE BLOOD COUNT (AUTO) 7.5 K/uL (4.8-10.8)
[2018-09-08 06:17] LABS: CREATININE 1.3 mg/dL (0.5-1.5); MAGNESIUM 1.5 mg/dL (1.80-2.40); POTASSIUM 3.7 mmol/L (3.5-5.1)
[2018-09-08 06:25] LABS: EOSINOPHILS % (MANUAL) 4 % (1-6); LYMPHOCYTES % (MANUAL) 14 % (22-44); MONOCYTES % (MANUAL) 9 % (2-9); REACTIVE LYMPHOCYTES 1 % (0-0); SEGMENTED NEUTROPHILS % 72 % (40-70)
[2018-09-08 06:26] LABS: MAN.DIFF COMMENT-IMPRESSION MANUAL DIF
[2018-09-08 07:30] VITALS: BP 139/94
[2018-09-08] MEDS: DOCUSATE SODIUM 100 MG CAP PO SCH ×2 (08:39→19:46)
[2018-09-08] MEDS: PANTOPRAZOLE SODIUM 40 MG TABLET.DR PO SCH (08:39)
[2018-09-08] MEDS: LIPASE/PROTEASE/AMYLASE 5000/17000/24000 PO SCH ×3 (08:39→16:04)
[2018-09-08] MEDS: METOPROLOL TARTRATE 25 MG TAB PO SCH ×2 (08:39→19:46)
[2018-09-08] MEDS: ENOXAPARIN SODIUM 30 MG/0.3 ML SQ SCH (08:40)
[2018-09-08] MEDS: ONDANSETRON HCL 4 MG/2 ML VIAL IV PRN (09:51)
[2018-09-08] MEDS: VANCOMYCIN 500MG+NS 100ML 100 ML IV SCH ×2 (09:51→19:46)
[2018-09-08 11:00] VITALS: BP 136/95
[2018-09-08] MEDS: MAGNESIUM 2GM PREMIX 50ML 50 ML IV PRN (12:49)
[2018-09-08] MEDS: POTASSIUM CHLORIDE 20 MEQ ERTAB PO PRN ×2 (12:50→15:07)
[2018-09-08 16:00] VITALS: BP 143/99
[2018-09-08] MEDS: TRAMADOL HCL 50 MG TABLET PO PRN (19:46)
[2018-09-08 20:00] VITALS: BP 142/88
[2018-09-09] VITALS: BP 133/86
[2018-09-09] MEDS: LEVOFLOXACIN 500 MG/D5W 100 ML 100 ML IV SCH (01:30)
[2018-09-09] MEDS: LACTATED RINGERS 1000ML 1,000 ML IV SCH (01:30)
[2018-09-09] MEDS: TRAMADOL HCL 50 MG TABLET PO PRN (03:59)
[2018-09-09 04:00] VITALS: BP 156/94
[2018-09-09 06:28] LABS: HEMATOCRIT 26.6 % (36-48); MEAN CORPUSCULAR HEMOGLOBIN 30.1 pg (27.0-33.0); MEAN CORPUSCULAR HGB CONC 34.2 g/dL (32.0-36.0); MEAN CORPUSCULAR VOLUME 88.1 fL (79-99); PLATELET COUNT (AUTO) 300 K/uL (130-400); RED BLOOD CELL COUNT(AUTO) 3.02 MIL/uL (4.00-5.50); RED CELL DISTRIBUTION WIDTH 15.7 % (11.0-15.5); WHITE BLOOD COUNT (AUTO) 6.7 K/uL (4.8-10.8)
[2018-09-09 06:38] LABS: CREATININE 1.2 mg/dL (0.5-1.5); MAGNESIUM 1.7 mg/dL (1.80-2.40); POTASSIUM 3.7 mmol/L (3.5-5.1)
[2018-09-09] MEDS: ONDANSETRON HCL 4 MG/2 ML VIAL IV PRN ×2 (06:51→13:01)
[2018-09-09 08:59] LABS: BASOPHILS % (MANUAL) 1 % (0-2); EOSINOPHILS % (MANUAL) 3 % (1-6); LYMPHOCYTES % (MANUAL) 29 % (22-44); MAN.DIFF COMMENT-IMPRESSION MANUAL DIFFERENTIAL; MONOCYTES % (MANUAL) 9 % (2-9); PLATELET MORPHOLOGY COMMENT ADEQUATE; SEGMENTED NEUTROPHILS % 58 % (40-70)
[2018-09-09 09:17] VITALS: BP 156/105
[2018-09-09] MEDS: LIPASE/PROTEASE/AMYLASE 5000/17000/24000 PO SCH ×2 (12:00→12:56)
[2018-09-09 12:35] VITALS: BP 152/96
[2018-09-09] MEDS: HYDROCODONE/ACETAMINOPHEN 5/325 MG TAB PO PRN (12:57)
[2018-09-09] MEDS: VANCOMYCIN 500MG+NS 100ML 100 ML IV SCH (12:58)
[2018-09-09] MEDS: PANTOPRAZOLE SODIUM 40 MG TABLET.DR PO SCH (12:58)
[2018-09-09] MEDS: METOPROLOL TARTRATE 25 MG TAB PO SCH (12:59)
[2018-09-09] MEDS: DOCUSATE SODIUM 100 MG CAP PO SCH (12:59)
[2018-09-09] MEDS: ENOXAPARIN SODIUM 30 MG/0.3 ML SQ SCH (13:00)
[2018-09-09] MEDS: MAGNESIUM 2GM PREMIX 50ML 50 ML IV PRN (13:01)
[2018-09-09] MEDS: POTASSIUM CHLORIDE 20 MEQ ERTAB PO PRN (13:01)
[2018-09-09 17:02] VITALS: BP 161/101
== END 2018-09-09 19:05 | disposition home or self-care (01) | DRG 282 ==
LOC: EDH 17:32 → EDHIP 17:33 → 3BH 08-28 01:01
PROVIDERS: ADMIT Hospitalist; ATTEND Hospitalist
PROC: 0DB98ZX Excision of Duodenum, Via Natural or Artificial Opening Endoscopic, Diagnostic (ICD-10-PCS; principal; 2018-09-06)
PROC: 0DB68ZX Excision of Stomach, Via Natural or Artificial Opening Endoscopic, Diagnostic (ICD-10-PCS; 2018-09-06)
PROC: 30233N1 Transfusion of Nonautologous Red Blood Cells into Peripheral Vein, Percutaneous Approach (ICD-10-PCS; 2018-09-06)
DX: K85.90 Acute pancreatitis without necrosis or infection, unspecified (principal); K75.0 Abscess of liver; N12 Tubulo-interstitial nephritis, not specified as acute or chronic; E44.1 Mild protein-calorie malnutrition; C94.6 Myelodysplastic disease, not elsewhere classified; K76.89 Other specified diseases of liver; D64.9 Anemia, unspecified; R79.89 Other specified abnormal findings of blood chemistry; Z68.1 Body mass index [BMI] 19.9 or less, adult; I10 Essential (primary) hypertension; D47.3 Essential (hemorrhagic) thrombocythemia; K29.70 Gastritis, unspecified, without bleeding; K44.9 Diaphragmatic hernia without obstruction or gangrene; K86.3 Pseudocyst of pancreas
CPT/HCPCS: 36415; 36430; 43239; 45385; 74176; 74177; 74183; 76641; 76700; 80048; 80053; 80202; 80305; 81001; 82150; 82270; 83010; 83540; 83550; 83615; 83690; 83735; 85025; 85027; 85610; 85730; 86140; 86682; 86753; 86850; 86900; 86901; 86922; 87040; 87077; 87088; 87186; 88305; A9579; J0360; J1650; J1756; J1885; J1956; J2185; J2270; J2405; J2550; J2704; J3370; J3475; J3480; J3490; J7030; J7040; J7120; P9016; Q9967

== ENCOUNTER → 2018-11-01 | Outpatient (CLI) | payer MEDICAID ==
[~2018-11-01] MED LIST changes: -CLON0.5T23 PO; -FOLI1TAB15 PO; -LEVO500T2 PO; +NITR100C4 PO; -OMEP40CA37 PO; +PANT40TA25 PO; -TRAM50TA4 PO; -TYL3 PO
== END | disposition home or self-care (01) ==
LOC: RAH 15:05
PROVIDERS: ATTEND Family Medicine
DX: R10.31 Right lower quadrant pain (principal); R10.32 Left lower quadrant pain; Z90.710 Acquired absence of both cervix and uterus
CPT/HCPCS: 76700; 76856

== ENCOUNTER 2018-12-09 21:51 | Inpatient (IN) | payer MEDICAID ==
[~2018-12-09] VITALS: Ht 180.3 cm; Wt 59.9 kg
[2018-12-09] MEDS ORDERED: ONDANSETRON HCL 4 MG/2 ML VIAL ONE (22:11)
[2018-12-09] MEDS ORDERED: KETOROLAC TROMETHAMINE 30MG/ML ONE (22:11)
[2018-12-09] MEDS ORDERED: SODIUM CHLORIDE 0.9% 1000ML 1,000 ML IV ONE ×2 (22:54→23:55)
[2018-12-09] MEDS ORDERED: HYDROMORPHONE 1 MG/1 ML AMP ONE ×2 (22:54→23:55)
[2018-12-09 23:10] LABS: BASOPHILS % (AUTO) 0.4 % (0.0-5.0); EOSINOPHILS % (AUTO) 0.1 % (0.0-8.0); LYMPHOCYTES % (AUTO) 8.6 % (21.0-51.0); MEAN CORPUSCULAR HEMOGLOBIN 30.3 pg (27.0-33.0); MEAN CORPUSCULAR HGB CONC 32.9 g/dL (32.0-36.0); MEAN CORPUSCULAR VOLUME 92.2 fL (79-99); MONOCYTES % (AUTO) 8.1 % (3.0-13.0); NEUTROPHILS % (AUTO) 82.8 % (40.0-77.0); PLATELET COUNT (AUTO) 318 K/uL (130-400); RED BLOOD CELL COUNT(AUTO) 3.91 MIL/uL (4.00-5.50); RED CELL DISTRIBUTION WIDTH 19.3 % (11.0-15.5); WHITE BLOOD COUNT (AUTO) 9.8 K/uL (4.8-10.8)
[2018-12-09 23:22] LABS: CREATININE 0.7 mg/dL (0.5-1.5)
[2018-12-09 23:24] LABS: INR 1.07 (0.85-1.15); PARTIAL THROMBOPLASTIN TIME 30.9 SEC (26.3-35.5); PROTHROMBIN TIME 11.2 SEC (9.6-11.6)
[2018-12-09 23:28] LABS: ALBUMIN 3.4 g/dL (3.5-5.0); BILIRUBIN,TOTAL 1.9 mg/dL (0.2-1.0); TOTAL PROTEIN, SERUM 7.4 g/dL (6.0-8.3)
[2018-12-10] MEDS ORDERED: ONDANSETRON HCL 4 MG/2 ML VIAL ONE ×3 (00:46→10:04)
[2018-12-10] MEDS ORDERED: NS-20 MEQ KCL 1000ML 1,000 ML IV ONE (00:47)
[2018-12-10 00:59] LABS: APPEARANCE,URINE Cloudy (CLEAR); BILIRUBIN,URINE Small (NEGATIVE); COLOR,URINE Dark Yellow (YELLOW); GLUCOSE, URINE (UA) Negative (NEGATIVE); KETONES,URINE 40 mg/dL (NEGATIVE); LEUKOCYTE ESTERASE ,URINE Small (NEGATIVE); NITRATE,URINE Negative (NEGATIVE); OCCULT BLOOD,URINE Negative (NEGATIVE); PROTEIN,URINE POS 2+ (NEGATIVE)
[2018-12-10 01:18] LABS: BACTERIA,URINE None Seen /HPF (None Seen); MUCUS,URINE Many LPF (None Seen); RBC,URINE None Seen /HPF (0-1); SQUAMOUS EPITHELIAL CELL,UR Few /HPF (0-2); YEAST,URINE BUDDING Few /HPF (None Seen)
[2018-12-10 01:20] LABS: AMPHET/METH SCREEN,URINE NEGATIVE (NEGATIVE); BARBITURATE SCREEN, URINE NEGATIVE (NEGATIVE); BENZODIAZEPINES SCREEN,URINE NEGATIVE (NEGATIVE); CANNABINOID SCREEN,URINE NEGATIVE (NEGATIVE); COCAINE SCREEN,URINE NEGATIVE (NEGATIVE); OPIATE SCREEN,URINE NEGATIVE (NEGATIVE); PHENCYCLIDINE SCREEN,URINE NEGATIVE (NEGATIVE)
[2018-12-10] MEDS ORDERED: MEPERIDINE-PF 50 MG/ML SYG IM PRN (01:30)
[2018-12-10] MEDS ORDERED: MEPERIDINE-PF 50 MG/ML SYG ONE ×3 (02:01→14:50)
[2018-12-10 04:59] LABS: BASOPHILS % (AUTO) 0.7 % (0.0-5.0); HEMATOCRIT 33.1 % (36-48); LYMPHOCYTES % (AUTO) 8.2 % (21.0-51.0); MEAN CORPUSCULAR HGB CONC 33.7 g/dL (32.0-36.0); NEUTROPHILS % (AUTO) 84.1 % (40.0-77.0); PLATELET COUNT (AUTO) 243 K/uL (130-400); RED CELL DISTRIBUTION WIDTH 18.7 % (11.0-15.5)
[2018-12-10 05:24] LABS: ALBUMIN 3.1 g/dL (3.5-5.0); BILIRUBIN,TOTAL 2.2 mg/dL (0.2-1.0); CREATININE 0.8 mg/dL (0.5-1.5); POTASSIUM 4.1 mmol/L (3.5-5.1); TOTAL PROTEIN, SERUM 6.8 g/dL (6.0-8.3)
[2018-12-10] MEDS ORDERED: GADODIAMIDE 5 MMOL/10 ML VIAL 5 MMOL/10 ML ML IV ONE (12:01)
[2018-12-10 16:00] VITALS: BP 149/100
--- NOTE | 2018-12-10 16:10 | NUR ---
Patient with BP 149/100, asymtomatic. Patient has pain to abdomen 9/10. Patient was given demerol in ER and is not due for next dose till 08:50pm.
--- NOTE | 2018-12-10 16:34 | NUR ---
RECEIVED A CALL FROM TEODORA LEE. CANCEL CT DRAINAGE OF PANCREAS.
[2018-12-10] MEDS: NS-20 MEQ KCL 1000ML 1,000 ML IV SCH (17:08)
[2018-12-10] MEDS: ONDANSETRON HCL 4 MG/2 ML VIAL IVP PRN ×2 (17:13→22:17)
--- NOTE | 2018-12-10 19:19 | NUR ---
D/C PLAN cm spoke to pt regarding d/c planning. pt well known to CM. pt with frequent admissions. pt lives with mother. states mother can assist in care if needed. plan to home. Pt remains high risk for readmission due to chronic pancreatitis and pain issues. Addendum: 12/10/18 at 1921 by POLLO COOLEY Amended: Links added.
[2018-12-10 19:58] VITALS: BP 156/91
[2018-12-10] MEDS ORDERED: AMYL1CAP63 PO (22:15)
[2018-12-10] MEDS ORDERED: ONDA4TAB9 PO (22:15)
[2018-12-10] MEDS ORDERED: PANT40TA25 PO (22:15)
[2018-12-10] MEDS ORDERED: IRON1CAP32 PO (22:15)
[2018-12-10] MEDS ORDERED: OMEP40CA37 PO (22:15)
[2018-12-10] MEDS ORDERED: FERR325T29 PO (22:15)
[2018-12-10] MEDS ORDERED: IBUP-2077 PO (22:15)
[2018-12-10] MEDS ORDERED: SUCR1TAB2 PO (22:15)
[2018-12-10] MEDS ORDERED: BENA20TA10 PO ×2 (22:15)
[2018-12-10] MEDS ORDERED: HYDR500C2 PO (22:15)
[2018-12-10] MEDS ORDERED: CLON0.5T12 PO (22:15)
[2018-12-10] MEDS ORDERED: ALPR-409 PO (22:15)
[2018-12-10] MEDS ORDERED: LINA145C PO (22:15)
[2018-12-10] MEDS ORDERED: ESCI10TA54 PO (22:15)
[2018-12-10] MEDS: MEPERIDINE-PF 50 MG/ML SYG IVP PRN (22:17)
[2018-12-10] MEDS ORDERED: DIPHENHYDRAMINE HCL 25 MG CAPSULE PO PRN (22:45)
[2018-12-10] MEDS ORDERED: DIPHENHYDRAMINE HCL 25 MG CAPSULE ONE (22:53)
[2018-12-10 23:46] VITALS: BP 150/108
[2018-12-11] MEDS: MEPERIDINE-PF 50 MG/ML SYG IVP PRN ×4 (03:58→21:54)
[2018-12-11 04:00] VITALS: BP 137/107
[2018-12-11 07:30] VITALS: BP 115/79
[2018-12-11 07:39] LABS: HEMATOCRIT 33.9 % (36-48); MEAN CORPUSCULAR HEMOGLOBIN 31.6 pg (27.0-33.0); MEAN CORPUSCULAR HGB CONC 33.6 g/dL (32.0-36.0); PLATELET COUNT (AUTO) 209 K/uL (130-400); RED BLOOD CELL COUNT(AUTO) 3.61 MIL/uL (4.00-5.50); RED CELL DISTRIBUTION WIDTH 18.2 % (11.0-15.5); WHITE BLOOD COUNT (AUTO) 4.4 K/uL (4.8-10.8)
[2018-12-11] MEDS: ONDANSETRON HCL 4 MG/2 ML VIAL IVP PRN ×3 (08:12→21:53)
[2018-12-11 08:17] LABS: ALBUMIN 3.1 g/dL (3.5-5.0); BILIRUBIN,TOTAL 1.5 mg/dL (0.2-1.0); CREATININE 0.7 mg/dL (0.5-1.5); POTASSIUM 3.9 mmol/L (3.5-5.1); TOTAL PROTEIN, SERUM 6.9 g/dL (6.0-8.3)
[2018-12-11] MEDS ORDERED: 1/2 NORMAL SALINE + 20 MEQ KCL 1,000 ML IV ONE (09:03)
[2018-12-11] MEDS: NS-20 MEQ KCL 1000ML 1,000 ML IV SCH ×3 (09:42→23:47)
[2018-12-11 11:00] VITALS: BP 143/104
[2018-12-11] MEDS ORDERED: IOHEXOL-350 75 ML VIAL IV ONE (11:05)
--- NOTE | 2018-12-11 11:41 | NUR ---
Nutrition intervention: Nutrition notification for severe wt loss. Pt admitted for acute pancreatitis currently NPO awaiting CT scan procedure. At time of RD visit pt having an emesis episode, however spoke briefly with her about nutrition supplementation. Pt is familiar with nutrition supplementations as she is usually placed on them when admitted at hospital. Recommendations: When medically feasible, advance diet therapy to clear liquid diet to goal diet of Soft/bland as tolerated. Please include nutrition supplementation in diet once advanced. Ensure clear for clear liquid diet. Ensure Enlive for Full liquid and solids. Thank you. Addendum: 12/11/18 at [address] Amended: Links added.
[2018-12-11] MEDS ORDERED: IBUPROFEN 800 MG TAB PO PRN (15:30)
[2018-12-11] MEDS ORDERED: CLONAZEPAM 0.5 MG TABLET PO PRN (15:30)
[2018-12-11] MEDS ORDERED: ALPRAZOLAM 0.25 MG TABLET PO PRN (15:30)
[2018-12-11 16:00] VITALS: BP 142/95
--- NOTE | 2018-12-11 17:45 | NUR ---
Dr. Potter rounded and explained to patient no need for sx intervention. Will have GI consult.
[2018-12-11] MEDS ORDERED: SUCRALFATE 1 GM TABLET ONE (19:51)
[2018-12-11 20:00] VITALS: BP 129/86
[2018-12-11] MEDS: CEFTRIAXONE SODIUM 1 GM IVP SCH (20:12)
[2018-12-11] MEDS: SUCRALFATE 1 GM TABLET PO SCH (20:12)
[2018-12-11] MEDS: FERROUS SULFATE 325 MG TABLET.DR PO SCH (20:13)
[2018-12-11] MEDS: LIPASE PO SCH (20:15)
[2018-12-11] MEDS: AMYLASE PO SCH (20:15)
[2018-12-11] MEDS: PROTEASE PO SCH (20:15)
--- NOTE | 2018-12-11 22:47 | NUR ---
REPORTED OFF TO CHARISSA KIM
[2018-12-12] VITALS (7 sets, daily range): BP systolic 99–133; BP diastolic 68–94
[2018-12-12] MEDS: ONDANSETRON HCL 4 MG/2 ML VIAL IVP PRN ×4 (03:57→19:57)
[2018-12-12] MEDS: MEPERIDINE-PF 50 MG/ML SYG IVP PRN ×3 (03:57→19:57)
[2018-12-12] MEDS: PANTOPRAZOLE SODIUM 40 MG TABLET.DR PO SCH ×2 (06:32→15:15)
[2018-12-12] MEDS: IRON FUM PO SCH (09:00)
[2018-12-12] MEDS: Linaclotide (Linzess) 145 MCG PO SCH (09:00)
[2018-12-12] MEDS ORDERED: NON-FORMULARY MEDICATION 1 EACH (Omeprazole 40 MG) PO SCH (09:00)
[2018-12-12] MEDS: PROTEASE PO SCH ×3 (09:00→19:59)
[2018-12-12] MEDS: HYDROXYUREA 500 MG CAP PO SCH (09:00)
[2018-12-12] MEDS: AMYLASE PO SCH ×3 (09:00→19:59)
[2018-12-12] MEDS: VIT B PO SCH (09:00)
[2018-12-12] MEDS: [UNRECOGNIZED DRUG - OTHER] PO SCH (09:00)
[2018-12-12] MEDS: Escitalopram Oxalate 10 MG PO SCH (09:00)
[2018-12-12] MEDS: LIPASE PO SCH ×3 (09:00→19:59)
[2018-12-12] MEDS: C NO 9 PO SCH (09:00)
[2018-12-12] MEDS: SUCRALFATE 1 GM TABLET PO SCH ×3 (09:49→19:58)
[2018-12-12] MEDS: BENAZEPRIL HCL 10 MG TABLET PO SCH (09:50)
[2018-12-12] MEDS: FERROUS SULFATE 325 MG TABLET.DR PO SCH ×2 (09:50→19:58)
[2018-12-12] MEDS: NS-20 MEQ KCL 1000ML 1,000 ML IV SCH ×2 (09:52→23:49)
[2018-12-12] MEDS: CEFTRIAXONE SODIUM 1 GM IVP SCH (19:58)
[2018-12-13] MEDS: ONDANSETRON HCL 4 MG/2 ML VIAL IVP PRN ×3 (03:07→15:30)
[2018-12-13] MEDS: MEPERIDINE-PF 50 MG/ML SYG IVP PRN ×3 (03:07→15:30)
[2018-12-13 03:13] VITALS: BP 122/75
[2018-12-13 05:04] LABS: BASOPHILS % (AUTO) 0.5 % (0.0-5.0); EOSINOPHILS % (AUTO) 5.2 % (0.0-8.0); HEMATOCRIT 34.4 % (36-48); LYMPHOCYTES % (AUTO) 27.6 % (21.0-51.0); MEAN CORPUSCULAR HEMOGLOBIN 31.3 pg (27.0-33.0); MEAN CORPUSCULAR HGB CONC 32.9 g/dL (32.0-36.0); MONOCYTES % (AUTO) 9.5 % (3.0-13.0); NEUTROPHILS % (AUTO) 57.2 % (40.0-77.0); NUCLEATED RED BLOOD CELLS 0.1 % (0.0-0.19); PLATELET COUNT (AUTO) 232 K/uL (130-400); RED BLOOD CELL COUNT(AUTO) 3.62 MIL/uL (4.00-5.50); RED CELL DISTRIBUTION WIDTH 18.1 % (11.0-15.5); WHITE BLOOD COUNT (AUTO) 4.6 K/uL (4.8-10.8)
[2018-12-13 05:17] LABS: ALBUMIN 2.8 g/dL (3.5-5.0); BILIRUBIN,TOTAL 0.4 mg/dL (0.2-1.0); CREATININE 0.9 mg/dL (0.5-1.5); POTASSIUM 3.8 mmol/L (3.5-5.1); TOTAL PROTEIN, SERUM 6.5 g/dL (6.0-8.3)
[2018-12-13 07:30] VITALS: BP 136/95
[2018-12-13] MEDS: HYDROXYUREA 500 MG CAP PO SCH (09:00)
[2018-12-13] MEDS: LIPASE PO SCH ×2 (09:00→14:00)
[2018-12-13] MEDS: PROTEASE PO SCH ×2 (09:00→14:00)
[2018-12-13] MEDS: Linaclotide (Linzess) 145 MCG PO SCH (09:00)
[2018-12-13] MEDS: AMYLASE PO SCH ×2 (09:00→14:00)
[2018-12-13] MEDS: Escitalopram Oxalate 10 MG PO SCH (09:00)
[2018-12-13] MEDS: BENAZEPRIL HCL 10 MG TABLET PO SCH (09:58)
[2018-12-13] MEDS: SUCRALFATE 1 GM TABLET PO SCH ×2 (09:58→15:28)
[2018-12-13] MEDS: IRON FUM PO SCH (09:59)
[2018-12-13] MEDS: VIT B PO SCH (09:59)
[2018-12-13] MEDS: FERROUS SULFATE 325 MG TABLET.DR PO SCH (09:59)
[2018-12-13] MEDS: C NO 9 PO SCH (09:59)
[2018-12-13] MEDS: [UNRECOGNIZED DRUG - OTHER] PO SCH (09:59)
[2018-12-13] MEDS: PANTOPRAZOLE SODIUM 40 MG TABLET.DR PO SCH ×2 (10:07→17:43)
[2018-12-13 11:00] VITALS: BP 113/75
[2018-12-13] MEDS: NS-20 MEQ KCL 1000ML 1,000 ML IV SCH (12:22)
[2018-12-13 16:00] VITALS: BP 127/81
--- NOTE | 2018-12-13 19:33 | NUR ---
DISCHARGE PATIENT GIVEN DISCHARGE INSTRUCTIONS VIA TEACH BACK, 22G PIV TO LFA, TIP INTACT. NO RX GIVEN, MAKE APPT WITH DR. CLAYTON IN 4 DAYS. PATIENT STABLE AT THIS TIME AND AWAITING FAMILY TO PICK HER UP.
== END 2018-12-13 19:57 | disposition home or self-care (01) | DRG 282 ==
LOC: EDH 21:51 → EDHIP 21:52 → OBSVTOIN 21:52 → 4BH 12-10 15:31
PROVIDERS: ADMIT Family Medicine; ATTEND Family Medicine
DX: K85.90 Acute pancreatitis without necrosis or infection, unspecified (principal); R17 Unspecified jaundice; N39.0 Urinary tract infection, site not specified; K86.3 Pseudocyst of pancreas; I10 Essential (primary) hypertension; K86.1 Other chronic pancreatitis; E80.6 Other disorders of bilirubin metabolism; Z90.710 Acquired absence of both cervix and uterus; Z88.0 Allergy status to penicillin
CPT/HCPCS: 36415; 74160; 74176; 74183; 76536; 80053; 80305; 81001; 82150; 82550; 83690; 84484; 85025; 85027; 85610; 85730; 87088; 93005; A4218; A9579; G0378; J0696; J1170; J1885; J2175; J2405; J3480; J7030; Q0163; Q9967

== ENCOUNTER 2019-11-20 10:36 | Emergency (ER) | payer MEDICAID, OTHER ==
[2019-11-20 10:53] LABS: BASOPHILS % (AUTO) 0.4 % (0.0-5.0); EOSINOPHILS % (AUTO) 0.2 % (0.0-8.0); HEMATOCRIT 42.2 % (36-48); LYMPHOCYTES % (AUTO) 29.8 % (21.0-51.0); MEAN CORPUSCULAR HEMOGLOBIN 29.7 pg (27.0-33.0); MONOCYTES % (AUTO) 10.5 % (3.0-13.0); NEUTROPHILS % (AUTO) 58.9 % (40.0-77.0); PLATELET COUNT (AUTO) 226 K/uL (130-400); RED BLOOD CELL COUNT(AUTO) 4.54 MIL/uL (4.00-5.50); RED CELL DISTRIBUTION WIDTH 14.7 % (11.0-15.5); WHITE BLOOD COUNT (AUTO) 5.2 K/uL (4.8-10.8)
[2019-11-20 11:05] LABS: CREATININE 1.3 mg/dL (0.5-1.5); POTASSIUM 4.1 mmol/L (3.5-5.1)
[2019-11-20 11:09] LABS: ALBUMIN 4.4 g/dL (3.5-5.0); BILIRUBIN,DIRECT 0.6 mg/dL (0.0-0.3); BILIRUBIN,TOTAL 2.9 mg/dL (0.2-1.0)
[2019-11-20 11:11] LABS: APPEARANCE,URINE Turbid (CLEAR); BILIRUBIN,URINE Moderate (NEGATIVE); COLOR,URINE Dark Yellow (YELLOW); GLUCOSE, URINE (UA) Negative (NEGATIVE); KETONES,URINE >=160 mg/dL (NEGATIVE); LEUKOCYTE ESTERASE ,URINE Large (NEGATIVE); NITRATE,URINE Positive (NEGATIVE); OCCULT BLOOD,URINE Large (NEGATIVE); PROTEIN,URINE 300 mg/dL (NEGATIVE)
[2019-11-20 11:15] LABS: HCG,QUAL RESULT NEGATIVE (NEGATIVE)
[2019-11-20 11:19] LABS: AMPHET/METH SCREEN,URINE NEGATIVE (NEGATIVE); BARBITURATE SCREEN, URINE NEGATIVE (NEGATIVE); BENZODIAZEPINES SCREEN,URINE NEGATIVE (NEGATIVE); CANNABINOID SCREEN,URINE NEGATIVE (NEGATIVE); COCAINE SCREEN,URINE NEGATIVE (NEGATIVE); OPIATE SCREEN,URINE NEGATIVE (NEGATIVE); PHENCYCLIDINE SCREEN,URINE NEGATIVE (NEGATIVE)
[2019-11-20] MEDS ORDERED: SODIUM CHLORIDE 0.9% 1000ML 1,000 ML IV ONE (11:20)
[2019-11-20] MEDS ORDERED: KETOROLAC TROMETHAMINE 15MG/ML ONE (11:21)
[2019-11-20] MEDS ORDERED: MORPHINE SULFATE 4 MG/1ML SYG ONE (11:21)
[2019-11-20] MEDS ORDERED: ONDANSETRON HCL 4 MG/2 ML VIAL ONE (11:21)
[2019-11-20 11:35] LABS: BACTERIA,URINE Rare /HPF (None Seen); HYALINE CASTS, URINE 0-1 /LPF (0-1 /LPF); MUCUS,URINE Rare LPF (None Seen); SQUAMOUS EPITHELIAL CELL,UR Few /HPF (0-2); WBC,URINE >100 /HPF (0-1)
[2019-11-20] MEDS ORDERED: LEVOFLOXACIN 500 MG/D5W 100 ML 100 ML ONE (13:15)
== END 2019-11-20 14:11 | disposition home or self-care (01) ==
LOC: EDH 10:36
DX: N39.0 Urinary tract infection, site not specified (principal); K52.9 Noninfective gastroenteritis and colitis, unspecified; Z88.0 Allergy status to penicillin; I10 Essential (primary) hypertension; Z90.710 Acquired absence of both cervix and uterus; Z90.49 Acquired absence of other specified parts of digestive tract
CPT/HCPCS: 36415; 74176; 80048; 80076; 80305; 81001; 81025; 82550; 83690; 85025; 96361; 96365; 96375; 99285; J1885; J1956; J2270; J2405; J7030

== ENCOUNTER 2020-04-22 04:39 | Inpatient (IN) | payer MEDICAID, OTHER ==
[~2020-04-22] VITALS: Ht 175.3 cm; Wt 81.6 kg
[2020-04-22] MEDS ORDERED: ONDANSETRON HCL 4 MG/2 ML VIAL ONE ×4 (05:31→21:09)
[2020-04-22] MEDS ORDERED: MORPHINE SULFATE 4 MG/1ML SYG ONE (05:32)
[2020-04-22] MEDS ORDERED: DEXTROSE 50%-WATER 50 ML DISP.SYRIN IV PRN (08:30)
[2020-04-22] MEDS ORDERED: MAG HYDROX/AL HYDROX/SIMETH ES 30 ML SUSP UDCUP PO PRN (08:30)
[2020-04-22] MEDS ORDERED: NITROGLYCERIN 0.4 MG SL TAB SL PRN (08:30)
[2020-04-22] MEDS ORDERED: ZOLPIDEM TARTRATE 5 MG TAB PO PRN (08:30)
[2020-04-22] MEDS ORDERED: ACETAMINOPHEN 325 MG TAB PO PRN ×2 (08:30)
[2020-04-22] MEDS ORDERED: POTASSIUM CHLORIDE 20 MEQ ERTAB PO PRN (08:30)
[2020-04-22] MEDS ORDERED: POTASSIUM CHLORIDE 10% ELIXIR 20 MEQ/15 ML UDCUP PO PRN (08:30)
[2020-04-22] MEDS ORDERED: LACTULOSE 20 GM/30 ML UDCUP PO PRN (08:30)
[2020-04-22] MEDS ORDERED: GUAIFENESIN-DM 200/20 MG 10 ML PO PRN (08:30)
[2020-04-22] MEDS ORDERED: DIPHENHYDRAMINE HCL 25 MG CAPSULE PO PRN (08:30)
[2020-04-22] MEDS ORDERED: GUAIFENESIN SUGAR-FREE 100 MG/5 ML UDCUP PO PRN (08:30)
[2020-04-22] MEDS ORDERED: GLUCAGON 1MG KIT 1 MG ML IM PRN (08:30)
[2020-04-22] MEDS ORDERED: DiphenhydrAMINE HCL 50 MG/ML VIAL IVP PRN (08:30)
[2020-04-22] MEDS ORDERED: CLONIDINE HCL 0.1 MG TABLET PO PRN (08:30)
[2020-04-22] MEDS: SODIUM CHLORIDE 0.9% 1000ML 1,000 ML IV SCH ×2 (08:56→20:16)
[2020-04-22] MEDS: PANTOPRAZOLE SODIUM 40 MG TABLET.DR PO SCH (08:56)
[2020-04-22] MEDS ORDERED: MEPERIDINE-PF 50 MG/ML SYG ONE (09:21)
[2020-04-22] MEDS: INSULIN R PO SSI SQ SCH ×2 (11:30→16:30)
[2020-04-22] MEDS ORDERED: MEPERIDINE-PF 25 MG/ML SYG ONE ×2 (14:02→18:30)
[2020-04-23] VITALS (7 sets, daily range): BP systolic 123–139; BP diastolic 81–104; PULSE 73–86; RESP 16–20; TEMP 97.7–98
[2020-04-23] MEDS: MEPERIDINE-PF 50 MG/ML SYG IVP PRN ×4 (00:42→23:19)
[2020-04-23] MEDS: INSULIN R PO SSI SQ SCH ×5 (00:47→21:45)
[2020-04-23] MEDS: LIDOCAINE HCL-MPF 1% 2ML VIAL IJ PRN ×2 (04:32→10:09)
[2020-04-23] MEDS: SODIUM CHLORIDE 0.9% 1000ML 1,000 ML IV SCH ×2 (04:33→10:09)
[2020-04-23] MEDS: POTASSIUM CHLORIDE 20MEQ/100ML 100 ML IV PRN ×2 (04:33→10:10)
--- NOTE | 2020-04-23 04:40 | NUR ---
patient's random glucose is 44, patient given dextrose 50 in water syringe and will continue to monitor blood sugar. patient's potassium is 2.8, one iv potassium bag hanged and administered with lidocaine 1 ml.
[2020-04-23] MEDS: ONDANSETRON HCL 4 MG/2 ML VIAL IVP PRN ×3 (07:11→23:18)
--- NOTE | 2020-04-23 09:20 | NUR ---
DR. CLAYTON PAGED RE; MAG 1.7 PENDING CALL BACK
--- NOTE | 2020-04-23 09:26 | NUR ---
CHART CHECK COMPLETED. Pt IS A 44 Y.O. FEMALE ADMITTED SECONDARY TO ACUTE ON CHRONIC PANCREATITIS. Pt HAS A PAST MEDICAL HISTORY SIGNIFICANT FOR RECURRENT PANCREATITIS, PANCREATIC CYSTS AND HYPERTENSION. SKILLED SPEECH THERAPY INTERVENTION IS NOT WARRANTED AT THIS TIME. IF S/S OF ASPIRATION DURING MEAL TIME SUCH CHOCKING, COUGHING OR WET VOCAL QUALITY ARISE, PLEASE REQUEST FORMAL SPEECH/SWALLOW EVALUATION. -ADMISSION CHART CHECK COMPLETED. Addendum: 04/23/20 at 0931 by YU BERMAN, [facility] Amended: Links added.
[2020-04-23] MEDS: PANTOPRAZOLE SODIUM 40 MG TABLET.DR PO SCH (10:04)
--- NOTE | 2020-04-23 13:07 | NUR ---
DCP CM met with pt discussed dc plans. Pt is independent prior to admission, lives at home with mother, brother, stacie. Denies any other equipments/services. Feels safe to go back home, still drives, arranges own needs, brother able to assist with transportation as necessary. DC plan to home once stable. CM to cont to follow up. Addendum: 04/23/20 at 1309 by JASPREET ARCHER LVN CM Amended: Links added.
[2020-04-23] MEDS: MEPERIDINE-PF 25 MG/ML SYG IV PRN (18:14)
--- NOTE | 2020-04-23 18:33 | NUR ---
DR. CLAYTON AWARE OF K LEVEL AND THAT HIS PATIENT IS HERE STATES WILL SEE PATIENT LATER TODAY. Addendum: 04/23/20 at 1916 by KERRY ABRAMS RN RN TIME WAS AT 0820AM
[2020-04-24] MEDS: SODIUM CHLORIDE 0.9% 1000ML 1,000 ML IV SCH ×2 (01:59→13:06)
[2020-04-24 04:07] VITALS: BP 124/81; PULSE 76; RESP 16; TEMP 97.8
[2020-04-24] MEDS: MEPERIDINE-PF 50 MG/ML SYG IVP PRN (04:37)
[2020-04-24] MEDS: INSULIN R PO SSI SQ SCH ×2 (07:30→12:39)
[2020-04-24 09:17] VITALS: BP 129/85; PULSE 72; RESP 18; TEMP 98
[2020-04-24] MEDS: PANTOPRAZOLE SODIUM 40 MG TABLET.DR PO SCH (09:40)
[2020-04-24] MEDS: MEPERIDINE-PF 25 MG/ML SYG IV PRN ×2 (09:43→13:08)
[2020-04-24] MEDS: ONDANSETRON HCL 4 MG/2 ML VIAL IVP PRN (09:43)
[2020-04-24] MEDS: MAGNESIUM 2GM PREMIX 50ML 50 ML IV SCH ×2 (09:51→12:46)
[2020-04-24 12:38] VITALS: BP 117/93; PULSE 78; RESP 18; TEMP 97.6
--- NOTE | 2020-04-24 14:20 | NUR ---
DR. CLAYTON ROUNDED AND DISCHARGED PATIENT ON TRAMADOL AND WILL CALL OFFICE FOR TELEPHONE FOLLOW UP.
--- NOTE | 2020-04-24 14:30 | NUR ---
PATIENT VERBALIZED WANTING TO TAKE SHOWER BEFORE DISCHARGE.
--- NOTE | 2020-04-24 15:50 | NUR ---
PATIENT WAS GIVEN DISCHARGE INSTRUCTIONS AND SCRIPT FOR HOME PAIN MANAGEMENT. PATIENT IS STABLE AND DENIES PAIN AT THIS TIME.
--- NOTE | 2020-04-24 16:10 | NUR ---
PATIENT WAS TAKEN VIA W/C TO FAMILY VEHICLE AND WASH DISCHARGED TO HER DAUGHTER IN STABLE CONDITION.
== END 2020-04-24 16:10 | disposition home or self-care (01) | DRG 282 ==
LOC: EDH 04:39 → OBSVTOIN 04:40 → EDHIP 04:40 → 3BH 04-23 00:19
PROVIDERS: ADMIT Family Medicine; ATTEND Family Medicine
DX: K85.90 Acute pancreatitis without necrosis or infection, unspecified (principal); I10 Essential (primary) hypertension; K86.1 Other chronic pancreatitis

== ENCOUNTER 2020-10-20 10:25 | Day surgery (SDC) | payer OTHER, MEDICARE ==
[2020-10-20] VITALS (7 sets, daily range): BP systolic 117–128; BP diastolic 78–86
[~2020-10-20] VITALS: Ht 180.3 cm; Wt 80.7 kg
[~2020-10-20 10:25] MED LIST changes: +ALPR0.5T PO; +CITA40TA14 PO; -HYDR500C2 PO; -IBUP-2071 PO; -IRON1CAP30 PO; +MILK500C PO; +MULT-1258 PO; -NITR100C4 PO; +ONDA4TAB4 PO; -ONDA4TAB7 PO; -PANT40TA25 PO; +PANT40TA54 PO; +POTA99TA17 PO; +PSYL660P17 PO
[2020-10-20] MEDS ORDERED: SODIUM CHLORIDE 0.9% 1000ML 1,000 ML IV ONE (11:02)
[2020-10-20] MEDS ORDERED: SIMV-43 PO (11:33)
[2020-10-20] MEDS ORDERED: PROPOFOL 10 MG/ML 20ML VIAL IV ONE ×3 (12:27→12:57)
[2020-10-20] MEDS ORDERED: ONDANSETRON HCL 4 MG/2 ML VIAL ONE (13:22)
== END 2020-10-20 13:35 | disposition home or self-care (01) ==
LOC: DAH 10:25 → EDSTATUS 12:31 → DAH 13:35
PROVIDERS: ATTEND Internal Medicine Gastroenterology
DX: K22.2 Esophageal obstruction (principal); K86.1 Other chronic pancreatitis; Z20.828 Contact with and (suspected) exposure to other viral communicable diseases; K21.9 Gastro-esophageal reflux disease without esophagitis; K29.50 Unspecified chronic gastritis without bleeding; K31.89 Other diseases of stomach and duodenum; K59.00 Constipation, unspecified; R19.7 Diarrhea, unspecified; I10 Essential (primary) hypertension; E11.9 Type 2 diabetes mellitus without complications; D64.9 Anemia, unspecified; F41.9 Anxiety disorder, unspecified; F32.9 Major depressive disorder, single episode, unspecified; Z88.1 Allergy status to other antibiotic agents; Z72.89 Other problems related to lifestyle; Z90.710 Acquired absence of both cervix and uterus; Z79.899 Other long term (current) drug therapy; Z86.19 Personal history of other infectious and parasitic diseases; Z90.49 Acquired absence of other specified parts of digestive tract; Z87.19 Personal history of other diseases of the digestive system
CPT/HCPCS: 43237; 43239; 82948; 88305; 88342; 91035; A4215 ×2; A4221; A4222; A4223; A4606; A4620; A4649; A4663; C9803; J2405; J2704 ×3; J7030; U0003

== ENCOUNTER → 2020-11-19 | Outpatient (CLI) | payer OTHER, MEDICARE ==
[~2020-11-19] MED LIST changes: +SIMV-43 PO
== END | disposition home or self-care (01) ==
LOC: RAH 12:49
PROVIDERS: ATTEND Family Medicine
DX: S92.411A Displaced fracture of proximal phalanx of right great toe, initial encounter for closed fracture (principal); X58.XXXA Exposure to other specified factors, initial encounter; Y93.89 Activity, other specified; Y92.89 Other specified places as the place of occurrence of the external cause; Y99.8 Other external cause status
CPT/HCPCS: 73630

== ENCOUNTER → 2020-11-23 | Outpatient (CLI) | payer OTHER, MEDICARE | END | disposition home or self-care (01) | LOC: RAH 07:34 | PROVIDERS: ATTEND Family Medicine | DX: K76.0 Fatty (change of) liver, not elsewhere classified (principal); Z90.49 Acquired absence of other specified parts of digestive tract | CPT/HCPCS: 76700; 76856 ==

== ENCOUNTER → 2020-11-30 | Outpatient (CLI) | payer OTHER, MEDICARE | END | disposition home or self-care (01) | LOC: RAH 14:20 | PROVIDERS: ATTEND Internal Medicine Gastroenterology | DX: K86.1 Other chronic pancreatitis (principal); Z90.49 Acquired absence of other specified parts of digestive tract | CPT/HCPCS: 74181 ==

== ENCOUNTER → 2021-01-26 | Outpatient (CLI) | payer OTHER, MEDICARE | END | disposition home or self-care (01) | LOC: OIH 11:08 | PROVIDERS: ATTEND Internal Medicine | DX: M85.88 Other specified disorders of bone density and structure, other site (principal); M19.90 Unspecified osteoarthritis, unspecified site | CPT/HCPCS: 72202 ==

== ENCOUNTER 2021-02-20 08:10 | Inpatient (IN) | payer OTHER, MEDICARE ==
[~2021-02-20] VITALS: Ht 180.3 cm; Wt 81.7 kg
[2021-02-20] MEDS ORDERED: ONDANSETRON 4MG INJ ONE (08:38)
[2021-02-20] MEDS ORDERED: 0.9%NACL 1000ML 1,000 ML IV ONE ×2 (08:38→08:40)
[2021-02-20] MEDS ORDERED: MORPHINE 4 MG SYG ONE (08:39)
[2021-02-20] MEDS ORDERED: KETOROLAC 30MG VIAL (30MG/ML) ONE (08:39)
[2021-02-20 08:52] LABS: BASOPHILS % (AUTO) 0.3 % (0.0-5.0); EOSINOPHILS % (AUTO) 0.2 % (0.0-8.0); HEMATOCRIT 39.8 % (36-48); LYMPHOCYTES % (AUTO) 23.3 % (21.0-51.0); MEAN CORPUSCULAR HEMOGLOBIN 30.7 pg (27.0-33.0); MEAN CORPUSCULAR HGB CONC 33.2 g/dL (32.0-36.0); MEAN CORPUSCULAR VOLUME 92.6 fL (79-99); MONOCYTES % (AUTO) 10.2 % (3.0-13.0); NEUTROPHILS % (AUTO) 65.6 % (40.0-77.0); PLATELET COUNT (AUTO) 293 K/uL (130-400); RED CELL DISTRIBUTION WIDTH 15.1 % (11.0-15.5)
[2021-02-20 09:04] LABS: INR 1.05 (0.85-1.15); PROTHROMBIN TIME 11.4 SEC (9.6-11.6)
[2021-02-20 09:05] LABS: PARTIAL THROMBOPLASTIN TIME 25.4 SEC (26.3-35.5)
[2021-02-20 09:08] LABS: ALBUMIN 4.2 g/dL (3.5-5.0); BILIRUBIN,TOTAL 1.2 mg/dL (0.2-1.0); POTASSIUM 3.3 mmol/L (3.5-5.1); TOTAL PROTEIN, SERUM 8.4 g/dL (6.0-8.3)
[2021-02-20] MEDS ORDERED: HYDROMORPHONE 1 MG INJ ONE (09:24)
[2021-02-20 10:13] LABS: CREATINE KINASE, TOTAL 69 U/L (21-232); MYOGLOBIN 21 ng/mL (10-92); TROPONIN I < 0.04 ng/mL (0.00-0.06)
[2021-02-20] MEDS ORDERED: DiphenhydrAMINE HCL 50 MG/ML VIAL ONE (10:19)
[2021-02-20] MEDS ORDERED: LEVOFLOXACIN 500 MG/D5W 100 ML 100 ML ONE (10:20)
[2021-02-20] MEDS ORDERED: PROCHLORPERAZINE 10MG/2ML INJ ONE (10:20)
[2021-02-20] MEDS ORDERED: LACTATED RINGERS 1000ML 1,000 ML IV ONE (10:21)
[2021-02-20 11:15] LABS: APPEARANCE,URINE Clear (CLEAR); BILIRUBIN,URINE Negative (NEGATIVE); COLOR,URINE Yellow (YELLOW); GLUCOSE, URINE (UA) TRACE mg/dL (NEGATIVE); KETONES,URINE 40 mg/dL (NEGATIVE); LEUKOCYTE ESTERASE ,URINE Negative (NEGATIVE); NITRATE,URINE Negative (NEGATIVE); OCCULT BLOOD,URINE Negative (NEGATIVE); PROTEIN,URINE Negative (NEGATIVE)
[2021-02-20] MEDS: 0.9%NACL 1000ML 1,000 ML IV SCH ×2 (11:15→16:50)
[2021-02-20] MEDS ORDERED: MORPHINE 2 MG SYG IM PRN (11:15)
[2021-02-20] MEDS: METOCLOPRAMIDE 10 MG/2 ML VIAL IVP SCH ×2 (11:30→16:54)
[2021-02-20 12:03] LABS: BACTERIA,URINE Few /HPF (None Seen); RBC,URINE None Seen /HPF (0-1); WBC,URINE 0-1 /HPF (0-1); YEAST,URINE BUDDING Rare /HPF (None Seen)
[2021-02-20] MEDS ORDERED: METOCLOPRAMIDE 10 MG/2 ML VIAL ONE (12:33)
[2021-02-20] MEDS ORDERED: MORPHINE 2 MG SYG ONE (13:38)
[2021-02-20] MEDS: ONDANSETRON 4MG INJ IVP PRN (15:06)
[2021-02-20 15:43] VITALS: BP 164/108
[2021-02-20] MEDS ORDERED: LIDOCAINE HCL-MPF 1% 2ML VIAL IV PRN (16:15)
[2021-02-20] MEDS ORDERED: KCL 20 MEQ ERTAB PO PRN (16:15)
[2021-02-20] MEDS ORDERED: POTASSIUM CHLORIDE 10% ELIXIR 20 MEQ/15 ML UDCUP PO PRN (16:15)
[2021-02-20] MEDS ORDERED: GLUCAGON 1MG KIT 1 MG ML IM PRN (16:15)
[2021-02-20] MEDS ORDERED: DEXTROSE 50%-WATER 50 ML DISP.SYRIN IV PRN (16:15)
[2021-02-20] MEDS ORDERED: POTASSIUM CHLORIDE 10MEQ/100ML 100 ML IV PRN (16:15)
[2021-02-20] MEDS: INSULIN HUMULIN R 100 UNIT/ML 3ML SQ SCH ×2 (16:30→20:31)
[2021-02-20] MEDS ORDERED: CELE-84 PO (16:31)
[2021-02-20] MEDS ORDERED: CYCL5TAB PO (16:31)
[2021-02-20] MEDS ORDERED: BIOT10005 PO (16:31)
[2021-02-20] MEDS ORDERED: INSU300I SQ (16:31)
[2021-02-20] MEDS ORDERED: MULT-1258 PO (16:31)
[2021-02-20] MEDS ORDERED: METO10TA3 PO (16:31)
[2021-02-20] MEDS ORDERED: TRAM50TA4 PO (16:31)
[2021-02-20] MEDS ORDERED: CITA-106 PO (16:31)
[2021-02-20] MEDS ORDERED: PANT40TA54 PO (16:31)
[2021-02-20] MEDS ORDERED: MILK500C PO (16:31)
[2021-02-20] MEDS ORDERED: MECO10005 PO (16:40)
[2021-02-20] MEDS ORDERED: PIOG30TA70 PO (16:40)
[2021-02-20] MEDS ORDERED: POTA99TA17 PO (16:40)
[2021-02-20] MEDS: LIDOCAINE HCL-MPF 1% 2ML VIAL IV PRN ×2 (17:32→22:44)
[2021-02-20] MEDS: POTASSIUM CHLORIDE 10MEQ/100ML 100 ML IV PRN ×2 (17:40→22:44)
[2021-02-20] MEDS: MORPHINE 2 MG SYG IV PRN (18:42)
[2021-02-20 19:40] VITALS: BP 166/110
[2021-02-20] MEDS: CYCLOBENZAPRINE HCL 10 MG TABLET PO SCH (20:27)
[2021-02-20] MEDS: FAMOTIDINE 20MG VIAL IV SCH (20:27)
[2021-02-20 23:39] VITALS: BP 160/104
[2021-02-20] MEDS ORDERED: KETOROLAC 15MG/ML VIAL (15MG/ML) IV PRN (23:45)
[2021-02-20] MEDS ORDERED: LABETALOL 20MG SYG IV PRN (23:45)
[2021-02-21] VITALS (7 sets, daily range): BP systolic 138–161; BP diastolic 98–109
[2021-02-21] MEDS: ONDANSETRON 4MG INJ IVP PRN ×2 (00:17→20:01)
[2021-02-21] MEDS: MORPHINE 2 MG SYG IV PRN ×4 (00:21→14:00)
[2021-02-21] MEDS: 0.9%NACL 1000ML 1,000 ML IV SCH ×3 (02:50→23:37)
[2021-02-21 05:16] LABS: HEMATOCRIT 36.3 % (36-48); MEAN CORPUSCULAR HEMOGLOBIN 31.2 pg (27.0-33.0); MEAN CORPUSCULAR HGB CONC 34.2 g/dL (32.0-36.0); MEAN CORPUSCULAR VOLUME 91.2 fL (79-99); RED BLOOD CELL COUNT(AUTO) 3.98 MIL/uL (4.00-5.50); RED CELL DISTRIBUTION WIDTH 14.6 % (11.0-15.5); WHITE BLOOD COUNT (AUTO) 9.9 K/uL (4.8-10.8)
[2021-02-21] MEDS: INSULIN HUMULIN R 100 UNIT/ML 3ML SQ SCH ×4 (05:23→20:10)
[2021-02-21 05:53] LABS: CREATININE 0.8 mg/dL (0.5-1.5); POTASSIUM 4.3 mmol/L (3.5-5.1)
[2021-02-21] MEDS: METOCLOPRAMIDE 10 MG/2 ML VIAL IVP SCH ×3 (05:57→17:39)
[2021-02-21] MEDS: CITALOPRAM 20 MG TABLET PO SCH (09:00)
[2021-02-21] MEDS: PIOGLITAZONE 30MG TAB PO SCH (09:00)
[2021-02-21] MEDS: Potassium Gluconate 99 MG PO SCH (09:00)
[2021-02-21] MEDS: FAMOTIDINE 20MG VIAL IV SCH ×2 (09:01→19:56)
[2021-02-21] MEDS ORDERED: MAGNESIUM 2GM PREMIX 50ML 50 ML IV PRN (14:45)
[2021-02-21] MEDS ORDERED: MAGNESIUM 2GM PREMIX 50ML 50 ML IV ONE (14:52)
[2021-02-21] MEDS: MORPHINE 4 MG SYG IV PRN ×2 (15:58→20:01)
[2021-02-21] MEDS: CYCLOBENZAPRINE HCL 10 MG TABLET PO SCH (20:10)
[2021-02-21] MEDS: HYDROMORPHONE 0.5 MG SYG (0.5MG/0.5ML) IVP PRN (23:38)
[2021-02-22 03:30] VITALS: BP 154/103
[2021-02-22] MEDS: INSULIN HUMULIN R 100 UNIT/ML 3ML SQ SCH ×4 (05:28→21:00)
[2021-02-22 05:46] LABS: BASOPHILS % (AUTO) 0.2 % (0.0-5.0); EOSINOPHILS % (AUTO) 0.5 % (0.0-8.0); HEMATOCRIT 39.2 % (36-48); LYMPHOCYTES % (AUTO) 15.2 % (21.0-51.0); MEAN CORPUSCULAR HEMOGLOBIN 30.7 pg (27.0-33.0); MEAN CORPUSCULAR HGB CONC 32.1 g/dL (32.0-36.0); MEAN CORPUSCULAR VOLUME 95.4 fL (79-99); MONOCYTES % (AUTO) 10.4 % (3.0-13.0); PLATELET COUNT (AUTO) 201 K/uL (130-400); RED BLOOD CELL COUNT(AUTO) 4.11 MIL/uL (4.00-5.50); RED CELL DISTRIBUTION WIDTH 14.8 % (11.0-15.5); WHITE BLOOD COUNT (AUTO) 8.3 K/uL (4.8-10.8)
[2021-02-22] MEDS: METOCLOPRAMIDE 10 MG/2 ML VIAL IVP SCH ×3 (05:56→15:46)
[2021-02-22] MEDS: HYDROMORPHONE 0.5 MG SYG (0.5MG/0.5ML) IVP PRN ×3 (05:56→18:22)
[2021-02-22 06:08] LABS: ALBUMIN 3.4 g/dL (3.5-5.0); BILIRUBIN,DIRECT 0.2 mg/dL (0.0-0.3); BILIRUBIN,TOTAL 1.3 mg/dL (0.2-1.0); CREATININE 0.7 mg/dL (0.5-1.5); POTASSIUM 4.4 mmol/L (3.5-5.1); TOTAL PROTEIN, SERUM 7.6 g/dL (6.0-8.3)
[2021-02-22] MEDS: ONDANSETRON 4MG INJ IVP PRN ×3 (06:14→18:21)
[2021-02-22 07:51] VITALS: BP 145/98
[2021-02-22] MEDS: Potassium Gluconate 99 MG PO SCH (08:36)
[2021-02-22] MEDS: CITALOPRAM 20 MG TABLET PO SCH (08:36)
[2021-02-22] MEDS: PIOGLITAZONE 30MG TAB PO SCH (08:36)
[2021-02-22] MEDS: 0.9%NACL 1000ML 1,000 ML IV SCH ×2 (10:19→15:46)
[2021-02-22] MEDS: FAMOTIDINE 20MG VIAL IV SCH ×2 (10:30→21:20)
[2021-02-22 11:11] VITALS: BP 139/96
[2021-02-22 16:28] VITALS: BP 131/99
[2021-02-22 19:22] VITALS: BP 148/56
[2021-02-22] MEDS: CYCLOBENZAPRINE HCL 10 MG TABLET PO SCH (21:00)
[2021-02-22 23:30] VITALS: BP 132/89
[2021-02-23] MEDS: HYDROMORPHONE 0.5 MG SYG (0.5MG/0.5ML) IVP PRN ×2 (00:12→06:20)
[2021-02-23] MEDS: ONDANSETRON 4MG INJ IVP PRN (00:12)
[2021-02-23] MEDS: 0.9%NACL 1000ML 1,000 ML IV SCH (00:12)
[2021-02-23 03:57] VITALS: BP 133/89
[2021-02-23 05:40] LABS: HEMATOCRIT 34.2 % (36-48); MEAN CORPUSCULAR HEMOGLOBIN 30.3 pg (27.0-33.0); MEAN CORPUSCULAR HGB CONC 32.7 g/dL (32.0-36.0); MEAN CORPUSCULAR VOLUME 92.4 fL (79-99); RED BLOOD CELL COUNT(AUTO) 3.7 MIL/uL (4.00-5.50); RED CELL DISTRIBUTION WIDTH 14.4 % (11.0-15.5)
[2021-02-23 05:58] LABS: CREATININE 0.8 mg/dL (0.5-1.5)
[2021-02-23] MEDS: METOCLOPRAMIDE 10 MG/2 ML VIAL IVP SCH ×2 (06:19→12:26)
[2021-02-23] MEDS: INSULIN HUMULIN R 100 UNIT/ML 3ML SQ SCH ×2 (06:33→11:30)
[2021-02-23 08:04] VITALS: BP 141/95
[2021-02-23] MEDS: Potassium Gluconate 99 MG PO SCH (09:00)
[2021-02-23] MEDS: FAMOTIDINE 20MG VIAL IV SCH (09:59)
[2021-02-23] MEDS: CITALOPRAM 20 MG TABLET PO SCH (09:59)
[2021-02-23] MEDS: PIOGLITAZONE 30MG TAB PO SCH (09:59)
[2021-02-23 12:21] VITALS: BP 155/94
[2021-06-03] MEDS ORDERED: HYDR200T4 PO (00:20)
== END 2021-02-23 13:30 | disposition home or self-care (01) | DRG 439 ==
LOC: EDH 08:10 → EDHIP 11:09 → OBSVTOIN 11:09 → 3BH 14:31
PROVIDERS: ADMIT Internal Medicine Critical Care Medicine; ATTEND Internal Medicine Critical Care Medicine
DX: K85.90 Acute pancreatitis without necrosis or infection, unspecified (principal); C94.6 Myelodysplastic disease, not elsewhere classified; D69.3 Immune thrombocytopenic purpura; Z90.710 Acquired absence of both cervix and uterus; E11.9 Type 2 diabetes mellitus without complications; I10 Essential (primary) hypertension; K21.9 Gastro-esophageal reflux disease without esophagitis; Z79.4 Long term (current) use of insulin; Z88.0 Allergy status to penicillin; Z90.49 Acquired absence of other specified parts of digestive tract; Z79.899 Other long term (current) drug therapy; K86.1 Other chronic pancreatitis; D64.9 Anemia, unspecified
CPT/HCPCS: 36415; 74176; 80048; 80053; 81001; 82248; 82550; 82948; 83690; 83735; 83874; 84484; 85025; 85027; 85610; 85730; 93005; G0378; J0780; J1170; J1200; J1885; J1956; J2270; J2405; J2765; J3475; J3490; J7030; J7120

== ENCOUNTER 2022-08-09 10:54 | Emergency (ER) | payer OTHER, MEDICARE ==
[~2022-08-09] VITALS: Ht 180.3 cm; Wt 68.9 kg
[~2022-08-09 10:54] MED LIST changes: -ALPR0.5T PO; +CELE-84 PO; -CITA40TA14 PO; +HYDR200T4 PO; +INSU300I SQ; +MECO10005 PO; -MILK500C PO; -MULT-1258 PO; -ONDA4TAB4 PO; -PANT40TA54 PO; +PIOG30TA70 PO; -PSYL660P17 PO; -SIMV-43 PO; -SUCR1TAB2 PO; +TRAM50TA4 PO
[2022-08-09 11:17] LABS: APPEARANCE,URINE TURBID (CLEAR); BILIRUBIN,URINE MODERATE mg/dL (NEGATIVE); COLOR,URINE YELLOW (YELLOW); GLUCOSE, URINE (UA) NEGATIVE (NEGATIVE); KETONES,URINE 5 mg/dL (NEGATIVE); LEUKOCYTE ESTERASE ,URINE LARGE Leu/uL (NEGATIVE); NITRATE,URINE POSITIVE (NEGATIVE); OCCULT BLOOD,URINE LARGE (NEGATIVE); PROTEIN,URINE 100 mg/dL (NEGATIVE)
[2022-08-09 12:02] LABS: BASOPHILS % (AUTO) 0.3 % (0.0-5.0); EOSINOPHILS % (AUTO) 1.2 % (0.0-8.0); HEMATOCRIT 37.6 % (36-48); LYMPHOCYTES % (AUTO) 33.2 % (21.0-51.0); MEAN CORPUSCULAR HEMOGLOBIN 31.7 pg (27.0-33.0); MEAN CORPUSCULAR HGB CONC 33.5 g/dL (32.0-36.0); MEAN CORPUSCULAR VOLUME 94.5 fL (79-99); MONOCYTES % (AUTO) 10.1 % (3.0-13.0); NEUTROPHILS % (AUTO) 54.8 % (40.0-77.0); PLATELET COUNT (AUTO) 155 K/uL (130-400); RED BLOOD CELL COUNT(AUTO) 3.98 MIL/uL (4.00-5.50); RED CELL DISTRIBUTION WIDTH 14.9 % (11.0-15.5); WHITE BLOOD COUNT (AUTO) 6.8 K/uL (4.8-10.8)
[2022-08-09 12:17] LABS: BACTERIA,URINE Many /HPF (None Seen); WBC,URINE TNTC /HPF (0-1)
[2022-08-09 12:18] LABS: SQUAMOUS EPITHELIAL CELL,UR Rare /HPF (0-2); TRANSITIONAL EPI CELLS,URINE Rare /HPF (None Seen)
[2022-08-09 12:31] LABS: CREATININE 0.9 mg/dL (0.5-1.5); POTASSIUM 3.1 mmol/L (3.5-5.1)
[2022-08-09 12:35] LABS: TOTAL PROTEIN, SERUM 8.1 g/dL (6.0-8.3)
[2022-08-09] MEDS ORDERED: NITR100C4 PO (13:57)
[2022-08-09 14:10] VITALS: BP 122/65
== END 2022-08-09 14:10 | disposition home or self-care (01) ==
LOC: EDH 10:54
DX: N39.0 Urinary tract infection, site not specified (principal); E11.9 Type 2 diabetes mellitus without complications; Z79.1 Long term (current) use of non-steroidal anti-inflammatories (NSAID); Z79.4 Long term (current) use of insulin; Z87.19 Personal history of other diseases of the digestive system; Z88.0 Allergy status to penicillin; Z90.49 Acquired absence of other specified parts of digestive tract
CPT/HCPCS: 36415; 74176; 80053; 81001; 83690; 85025; 87077; 87088; 87186

== ENCOUNTER 2024-12-29 10:55 | Inpatient (IN) | payer MEDICARE ==
[~2024-12-29] VITALS: Ht 180.3 cm; Wt 80.3 kg
[~2024-12-29 10:55] MED LIST changes: +CELE-125 PO; -CELE-84 PO; +ESCI-8 PO; -HYDR200T4 PO; +HYDR200T75 PO; -PIOG30TA70 PO; -POTA99TA17 PO; -TRAM50TA4 PO
--- NOTE | 2024-12-29 12:17 | ERN ---
ED Note History of Present Illness Stated Complaint: VOMITTING, KIDNEY PAIN Chief Complaint: Abdominal Pain Time Seen by MD: 11:39 Time Seen by Midlevel: 12:00 Dictation: Ms Escobar is a 49-year-old female with history of anemia, gastritis, rheumatoid arthritis, type 2 diabetes, pancreatitis, alcoholism, and liver cirrhosis who presented to the emergency department this morning for evaluation of abdominal pain. She reports that on Sunday she developed diarrhea which was dark black in color. She states that she drank alcohol heavily over the weekend and now has upper abdominal pain with nausea, vomiting, and bilateral flank pain. She states her blood glucose levels have been greater than 400. She denies having fever, chills, shortness of breath, cough, chest pain, palpitations, edema, hematemesis, hematochezia, headache, or dizziness. PCP: Rachele Buck Allergies: Coded Allergies: Penicillins (Verified Allergy, Unknown, 03/19/18) Home Meds Reported Medications Tofacitinib Citrate (Xeljanz) 10 Mg Tablet, 10 MG PO DAILY, TAB 12/29/24 Sertraline HCl (Sertraline HCl) 25 Mg Tablet, 25 MG PO DAILY, TAB 12/29/24 Pantoprazole Sodium (Pantoprazole Sodium) 20 Mg Tablet.dr, 20 MG PO HS, TAB 12/29/24 Lipase/Protease/Amylase (Creon Dr 36,000 Units Capsule) 36K-114K Capsule.dr, 1 EACH PO TID, CAP 12/29/24 Discontinued Reported Medications Escitalopram Oxalate (Escitalopram Oxalate) 10 Mg Tablet, 10 MG PO HS 11/22/22 Hydroxychloroquine Sulfate (Hydroxychloroquine Sulfate) 200 Mg Tablet, 200 MG PO BID, TAB 06/03/21 Mecobalamin (B12 Active) 1,000 Mcg Tab.chew, 1000 MCG PO DAILY, TAB.CHEW 02/20/21 Celecoxib (Celecoxib) 200 Mg Capsule, 200 MG PO BID, CAP 02/20/21 Insulin Glargine,Hum.rec.anlog (Tounery Solostar) 300 Unit/1 Ml Insuln.pen, 12 UNIT SQ DAILY, SYRINGE 02/20/21 Past Medical History Past Medical History: Diabetes-Type II, GERD, Pancreatitis, Other Additional Past Medical Hx: GASTRITIS, E COLI, ESBL, RA, cirrhosis Surgical History: Hysterectomy, Cholecystectomy PSYCH History: no pertinent psych hx Social History: ETOH History: Not Applicable RN Note Reviewed/Agreed w/PFSH: Yes Review of System Dictation REVIEW OF SYSTEMS: CONSTITUTIONAL: Patient denies fevers, chills, sweats and weight changes. Reports fatigue and general weakness. EYES: Patient denies any visual symptoms. EARS, NOSE, AND THROAT: No difficulties with hearing. No symptoms of rhinitis or sore throat. CARDIOVASCULAR: Patient denies chest pains, palpitations, orthopnea and paroxysmal nocturnal dyspnea. RESPIRATORY: No dyspnea on exertion, no wheezing or cough. GI: No diarrhea, constipation, hematochezia states that Sunday she developed diarrhea stools black in color. Reports upper abdominal pain with nausea and vomiting after drinking heavily this weekend. States she was recently diagnosed with cirrhosis. She states she has a history of pancreatitis : No urinary hesitancy or dribbling. No nocturia or urinary frequency. No ab normal urethral discharge. MUSCULOSKELETAL: No myalgias or arthralgias. NEUROLOGIC: No chronic headaches, no seizures. Patient denies numbness, tingling or weakness. PSYCHIATRIC: Patient denies problems with mood disturbance. No problems with anxiety. ENDOCRINE: No excessive urination or excessive thirst. Reports elevated blood glucose readings greater than 400. DERMATOLOGIC: Patient denies any rashes or skin changes. Initial Vital Sign VS Vital Signs Date Time Temp Pulse Resp B/P (MAP) Pulse Ox O2 Delivery O2 Flow Rate FiO2 12/29/24 11:16 98.4 89 18 110/87 96 Room Air 0 12/29/24 13:47 21 Physical Exam Dictation Vital signs: Reviewed. Afebrile Constitutional: Uncomfortable. Pleasant Head/Face: Normocephalic, atraumatic. Eyes: Periorbital areas with no swelling, redness, or edema. Lids and lashes are normal. Conjunctival injection is absent. Icteric Pupils equal, round, reactive to light. ENT: Pinnas intact and no signs of trauma or erythema. Ear canals clear and no discharge. TMs no erythema. No nasal discharge or bleeding noted. Oropharynx with no exudate, redness, swelling, masses, exudates, or evidence of obstruction. Uvula midline. Mucous membranes dry Neck: Trachea midline, no masses palpated, and no cervical lymphadenopathy. No swelling. Supple, full range of motion. Chest/Axilla: No tenderness, no crepitus, no paradoxical movement, no retractions. Cardiovascular: Regular rate, regular rhythm, no murmur, no gallops. Symmetric pulses. No peripheral edema. Respiratory: Respirations even and unlabored. Lung sounds clear; no wheezes, rales or rhonchi. Room air SpO2 96% Gastrointestinal: Inspection is normal. No distention is appreciated. Bowel sounds are normal. No mass or organomegaly . Tenderness to upper quadrants and over the epigastrium No rebound. No rigidity. No voluntary or involuntary guarding. No Spencer's sign. Neurological: Normal speech, gross motor function intact, gross sensory function intact. No focal weakness/Paresthesia. Musculoskeletal/Extremities: All extremities have full range of motion, no pain or tenderness on palpation. Symmetric pulses. Integumentary: Intact. Skin is pale, warm and dry. Cap refill less than 3 seconds. Results (Laboratory/Radiology) Laboratory/Radiology Laboratory Tests Test 01/02/25 15:35 01/02/25 16:54 01/02/25 19:33 01/03/25 05:41 Whole Blood Glucose 478 MG/DL (70-110) *H 105 MG/DL (70-110) # 240 MG/DL (70-110) #H Bedside Glucose Comment Notified Nurse Potassium Level 4.6 mmol/L (3.5-5.1) Whole Blood Ketones Quantitative 0.4 mmol/L (0.0-0.6) Magnesium Level 1.70 mg/dL (1.80-2.40) L Test 01/03/25 05:51 01/03/25 11:13 01/03/25 16:02 01/03/25 19:27 White Blood Count 4.9 K/uL (4.8-10.8) Red Blood Count 3.47 MIL/uL (4.00-5.50) L Hemoglobin 10.6 g/dL (12.0-16.0) L Hematocrit 31.9 % (36-48) L Mean Corpuscular Volume 91.9 fL (79-99) Mean Corpuscular Hemoglobin 30.5 pg (27.0-33.0) Mean Corpuscular Hemoglobin Concent 33.2 g/dL (32.0-36.0) Red Cell Distribution Width 15.6 % (11.0-15.5) H Platelet Count 171 K/uL (130-400) Mean Platelet Volume 10.1 fL (7.5-10.5) Immature Granulocyte % (Auto) 0.4 % (0-1) Neutrophils (%) (Auto) 45.2 % (40.0-77.0) Lymphocytes (%) (Auto) 36.3 % (21.0-51.0) Monocytes (%) (Auto) 15.5 % (3.0-13.0) H Eosinophils (%) (Auto) 2.2 % (0.0-8.0) Basophils (%) (Auto) 0.4 % (0.0-5.0) Neutrophils # (Auto) 2.2 K/uL (1.8-7.7) Lymphocytes # (Auto) 1.8 K/uL (1.0-4.8) Monocytes # (Auto) 0.8 K/uL (0.1-1.0) Eosinophils # (Auto) 0.11 K/uL (0.00-0.70) Basophils # (Auto) 0.02 K/uL (0.00-0.20) Absolute Immature Granulocyte (auto 0.02 K/uL (0-1) Nucleated Red Blood Cells 0.0 % (0.0-0.19) Sodium Level 132 mmol/L (136-145) L Potassium Level 4.2 mmol/L (3.5-5.1) Chloride Level 100 mmol/L (101-111) L Carbon Dioxide Level 26 mmol/L (21-32) Blood Urea Nitrogen 11 mg/dL (7-18) Creatinine 0.9 mg/dL (0.5-1.0) Glomerular Filtration Rate Calc 78 mL/min (>90) Random Glucose 230 mg/dL (70-105) H Total Calcium 8.7 mg/dL (8.5-10.1) Magnesium Level 1.10 mg/dL (1.80-2.40) L Total Bilirubin 0.6 mg/dL (0.2-1.0) Aspartate Amino Transf (AST/SGOT) 115 U/L (10-37) H Alanine Aminotransferase (ALT/SGPT) 97 U/L (12-78) H Alkaline Phosphatase 75 U/L (50-136) Total Protein 6.2 g/dL (6.0-8.3) Albumin 2.9 g/dL (3.5-5.0) L Whole Blood Glucose 347 MG/DL (70-110) H 109 MG/DL (70-110) # 267 MG/DL (70-110) #H Test 01/04/25 05:06 01/04/25 11:42 01/04/25 16:13 01/04/25 19:33 Whole Blood Glucose 294 MG/DL (70-110) H 212 MG/DL (70-110) H 182 MG/DL (70-110) H 215 MG/DL (70-110) H Test 01/05/25 05:35 01/05/25 06:07 Whole Blood Glucose 195 MG/DL (70-110) H White Blood Count 4.6 K/uL (4.8-10.8) L Red Blood Count 3.67 MIL/uL (4.00-5.50) L Hemoglobin 11.1 g/dL (12.0-16.0) L Hematocrit 33.5 % (36-48) L Mean Corpuscular Volume 91.3 fL (79-99) Mean Corpuscular Hemoglobin 30.2 pg (27.0-33.0) Mean Corpuscular Hemoglobin Concent 33.1 g/dL (32.0-36.0) Red Cell Distribution Width 15.6 % (11.0-15.5) H Platelet Count 214 K/uL (130-400) # Mean Platelet Volume 10.6 fL (7.5-10.5) H Immature Granulocyte % (Auto) 0.6 % (0-1) Neutrophils (%) (Auto) 35.8 % (40.0-77.0) L Lymphocytes (%) (Auto) 43.8 % (21.0-51.0) Monocytes (%) (Auto) 16.4 % (3.0-13.0) H Eosinophils (%) (Auto) 2.8 % (0.0-8.0) Basophils (%) (Auto) 0.6 % (0.0-5.0) Neutrophils # (Auto) 1.7 K/uL (1.8-7.7) L Lymphocytes # (Auto) 2.0 K/uL (1.0-4.8) Monocytes # (Auto) 0.8 K/uL (0.1-1.0) Eosinophils # (Auto) 0.13 K/uL (0.00-0.70) Basophils # (Auto) 0.03 K/uL (0.00-0.20) Absolute Immature Granulocyte (auto 0.03 K/uL (0-1) Nucleated Red Blood Cells 0.0 % (0.0-0.19) Sodium Level 133 mmol/L (136-145) L Potassium Level 4.3 mmol/L (3.5-5.1) Chloride Level 100 mmol/L (101-111) L Carbon Dioxide Level 28 mmol/L (21-32) Blood Urea Nitrogen 10 mg/dL (7-18) Creatinine 0.9 mg/dL (0.5-1.0) Glomerular Filtration Rate Calc 78 mL/min (>90) Random Glucose 220 mg/dL (70-105) H Total Calcium 9.6 mg/dL (8.5-10.1) Magnesium Level 1.40 mg/dL (1.80-2.40) L Total Bilirubin 0.3 mg/dL (0.2-1.0) Aspartate Amino Transf (AST/SGOT) 143 U/L (10-37) H Alanine Aminotransferase (ALT/SGPT) 136 U/L (12-78) H Alkaline Phosphatase 75 U/L (50-136) Total Protein 6.4 g/dL (6.0-8.3) Albumin 3.0 g/dL (3.5-5.0) L Thyroid Stimulating Hormone (TSH) 0.95 uIU/mL (0.36-3.74) Labs Reviewed?: Yes ED Course ED Course Orders Procedure Category Date Status Time Cbc With Differential LAB 01/03/25 Complete 04:00 Comprehensive LAB 01/03/25 Complete Metabolic Panel 04:00 Magnesium LAB 01/03/25 Complete 04:00 Us Soft Tissue Neck US 01/02/25 Resulted 14:08 Initiate VAZQUEZ 01/02/25 In Process Hyperglycemia Protoco 15:39 Insulin Regular, PHA 01/02/25 In Process Human 3ml (Humulin R 16:30 Insulin PHA 01/03/25 In Process Glargine,Hum.Rec.Anlog 09:00 Pathology Request LAB 12/31/24 In Process Tissue 13:25 Ketone Blood LAB 01/02/25 Complete Quantitative 16:34 Magnesium LAB 01/02/25 Complete 16:34 *Nursing CPOE 01/02/25 Transmitted Communication: 16:34 Potassium LAB 01/02/25 Complete 16:34 Metoclopramide 10 PHA 01/02/25 In Process Mg/2 Ml Vial (Reglan 1 21:00 Lorazepam 2 Mg PHA 01/02/25 Complete (Ativan) 23:30 Diazepam 5mg Tab PHA 01/03/25 Complete (Valium 5 Mg Tab) 11:35 Cbc With Differential LAB 01/05/25 Complete 04:00 Comprehensive LAB 01/05/25 Complete Metabolic Panel 04:00 Magnesium LAB 01/05/25 Complete 04:00 Thyroid Stimulating LAB 01/05/25 Complete Hormone 04:00 Diazepam 2 Mg Tab PHA 01/04/25 In Process (Valium 2 Mg Tab) 11:00 Nutritional DIETNUR 01/04/25 In Process Supplementation 10:58 Gi Soft/Weber Diet DIET 01/04/25 Transmitted Lunch Morphine 2mg Syg PHA 01/04/25 In Process (Morphine 2mg Syg) 14:30 Tramadol Hcl (Ultram) PHA 01/04/25 Complete 15:36 Tramadol Hcl (Ultram) PHA 01/04/25 In Process 17:30 T4 Free LAB 01/05/25 Logged 06:47 Vital Signs Date Time Temp Pulse Resp B/P (MAP) Pulse Ox O2 Delivery O2 Flow Rate FiO2 01/05/25 04:09 97.3 64 18 101/69 99 Room Air 01/05/25 00:46 97.3 69 19 90/61 97 Room Air 01/04/25 21:56 98.1 74 19 99/75 98 Room Air 01/04/25 20:00 98 Room Air* 0 01/04/25 16:00 98.4 81 18 109/60 100 Room Air 01/04/25 12:00 98.2 82 19 98/72 95 Room Air 01/04/25 08:35 98 Room Air* 0 01/04/25 08:00 97.9 69 18 95/65 99 Room Air 01/04/25 04:00 98.6 77 17 96/72 98 Room Air 01/04/25 00:00 98.4 87 16 123/73 98 Room Air 21 01/03/25 20:00 99 Room Air* 0 21 01/03/25 20:00 98.2 73 16 125/84 99 Room Air 21 01/03/25 16:00 97.9 81 18 97/72 98 Room Air 01/03/25 12:00 98.2 85 19 92/66 98 Room Air 0.0 01/03/25 09:49 99 Room Air* 0 21 01/03/25 08:00 98.4 72 18 103/66 97 Room Air 01/03/25 04:18 98.1 67 19 134/93 99 Room Air 01/03/25 00:13 98.2 82 18 105/70 95 Room Air 01/02/25 20:25 98.1 101 18 106/50 99 Room Air 01/02/25 19:40 99 Room Air* 0 21 01/02/25 16:00 98.6 74 18 124/88 100 Room Air 01/02/25 12:00 98.2 81 18 125/73 99 Room Air 01/02/25 08:45 96 Room Air* 0 21 01/02/25 08:00 98.6 76 18 115/76 98 Room Air Patient arrived with 8/10 upper abdominal pain with nausea and vomiting. Restless. Vital signs stable; normotensive and afebrile. Room air SpO2 96-98%. Laboratory findings as noted below. No elevation of WBCs. H&H are stable. Na/Cl 134/93, CR 1.3, glucose 162, serum ketones 4.9, Ca 8.3, total bili 2.1, direct bili 0.7, AST/ALT 177/91, and total protein 8.6. ETOH is negative. UA cloudy; + protein, glucose, ketones, and leukocyte esterase 11-25. ABG on room air demonstrates a respiratory alkalosis chronic with secondary metabolic alkalosis: PH 7.447, pCO2 33, PO2 93.1, bicarb 22.2, and base excess negative one. Findings were discussed with BIS SAFETY PERSON who accepts patient for admission to their service Medical Decision Making MDM MDM: Differential diagnosis: Pancreatitis, DKA, GI bleed/hemorrhage Rationale: Tests considered and ordered secondary to shared decision making include: labs, ECG and radiology Previous outside records reviewed: Old ER visits. Risk of complication and/or morbidity or mortality of patient management: None Medications-Per medication reconciliation Need for hospitalization: Patient does meet criteria for hospitalization. Need for emergency major/minor surgery: No There are no social concerns with this patient. Prescription drug management Prescriptions will include symptomatic care Patient's prior external medical records from other ER visits were reviewed by me as indicated. Prior testing and results from previous visits were reviewed. Prior tests were taken into account with medical decision making and resource utilization, independent historian/historians were used to obtain complete medical history. I independently interpreted the test that were performed, results were reviewed by me and considered findings on radiology if ordered. Medical management and examination interpretation discussions were had by me with other qualified healthcare professionals as indicated for the patient's care. DX & DISP Disposition: Inpatient Departure Impression: Primary Impression: Abdominal pain Additional Impressions: GI bleed, HAILEE (acute kidney injury), Transaminitis, UTI (urinary tract infection), Hyperosmolar hyperglycemic state (HHS), Ketosis, Dehydration Critical Time: 30 minutes (Critical Care Procedure NoteAuthorized and Performed by: meTotal critical care time: Approximately 36 minutesDue to a high probability of clinically significant, life threatening deterioration, the patient required my highest level of preparedness to intervene emergently and I personally spent this critical care time directly and personally managing the patient. This critical care time included obtaining a history; examining the patient; pulse oximetry; ordering and review of studies; arranging urgent treatment with development of a management plan; evaluation of patient's response to treatment; frequent reassessment; and, discussions with other providers.This critical care time was performed to assess and manage the high probability of imminent, life-threatening deterioration that could result in multi-organ failure. It was exclusive of separately billable procedures and treating other patients and teaching time.Please see MDM section and the rest of the note for further information on patient assessment and treatment.) Condition: Stable Assign Patient to: Dr. Jose Hinojosa Referrals: WOOD CRESPO MD (PCP) I performed a substantive portion of the visit. I have reviewed and personally made and approve the management plan that is documented in the notes by myself with ELYSE/resident. I acknowledged full responsibility for the patient's man agement plan. ASHLEY ORDAZ NP Dec 29, 2024 12:17 JOSÉ MIGUEL JJ DO Jan 05, 2025 07:35
[2024-12-29 12:42] LABS: ABG HCO3 22.2 mmol/L (21.0-28.0); ABG OXYGEN SATURATION 97.5 % (94.0-98.0); ABG PCO2 33 mmHg (32-45); ABG PH 7.447 (7.350-7.450); PO2, ARTERIAL BG 93.1 mmHg (83.0-108.0); VENT MODE, BG RA (ROOM AIR)
[2024-12-29 12:51] LABS: APPEARANCE,URINE CLOUDY (CLEAR); BILIRUBIN,URINE 1 mg/dL (NEGATIVE); COLOR,URINE DARK-YELLOW (YELLOW); GLUCOSE, URINE (UA) 30 mg/dL (NEGATIVE); KETONES,URINE 40 mg/dL (NEGATIVE); LEUKOCYTE ESTERASE ,URINE 75 Leu/uL (NEGATIVE); NITRATE,URINE NEGATIVE (NEGATIVE); OCCULT BLOOD,URINE NEGATIVE (NEGATIVE); PROTEIN,URINE 200 mg/dL (NEGATIVE); UROBILINOGEN,URINE >=8.0 mg/dL (0.2-1.0)
[2024-12-29 13:04] LABS: ADD UA MICROSCOPIC YES
[2024-12-29 13:06] LABS: MUCUS,URINE MANY LPF (None Seen); SQUAMOUS EPITHELIAL CELL,UR MANY /HPF (0-2)
[2024-12-29 13:09] LABS: BASOPHILS # (AUTO) 0.02 K/uL (0.00-0.20); BASOPHILS % (AUTO) 0.3 % (0.0-5.0); EOSINOPHILS # (AUTO) 0.02 K/uL (0.00-0.70); EOSINOPHILS % (AUTO) 0.3 % (0.0-8.0); HEMATOCRIT 41.4 % (36-48); IMMATURE GRANULOCYTE ABSOLUTE 0.02 K/uL (0-1); LYMPHOCYTES % (AUTO) 27.3 % (21.0-51.0); MEAN CORPUSCULAR HEMOGLOBIN 30.5 pg (27.0-33.0); MEAN CORPUSCULAR HGB CONC 32.4 g/dL (32.0-36.0); MEAN CORPUSCULAR VOLUME 94.1 fL (79-99); MONOCYTES # (AUTO) 0.7 K/uL (0.1-1.0); MONOCYTES % (AUTO) 10.1 % (3.0-13.0); NEUTROPHILS # (AUTO) 4.5 K/uL (1.8-7.7); NEUTROPHILS % (AUTO) 61.7 % (40.0-77.0); PLATELET COUNT (AUTO) 221 K/uL (130-400); RED CELL DISTRIBUTION WIDTH 16.4 % (11.0-15.5); WHITE BLOOD COUNT (AUTO) 7.4 K/uL (4.8-10.8)
[2024-12-29 13:15] LABS: CARBON DIOXIDE 25 mmol/L (21-32); CHLORIDE 93 mmol/L (101-111); CREATININE 1.3 mg/dL (0.5-1.0); GLOMERULAR FILTR. RATE CALC 50 mL/min (>90); GLUCOSE,RANDOM 162 mg/dL (70-105); POTASSIUM 3.5 mmol/L (3.5-5.1); SODIUM SERUM 134 mmol/L (136-145); UREA NITROGEN, BLOOD 18 mg/dL (7-18)
[2024-12-29 13:19] LABS: ALANINE AMINOTRANSFERASE 91 U/L (12-78); ALBUMIN 4.3 g/dL (3.5-5.0); AMMONIA 19 umol/L (11-32); ASPARTATE AMINOTRANSFERASE 177 U/L (10-37); BILIRUBIN,DIRECT 0.7 mg/dL (0.0-0.3); TOTAL PROTEIN, SERUM 8.6 g/dL (6.0-8.3)
[2024-12-29 13:20] LABS: ALCOHOL, BLOOD < 3 mg/dL (0-10)
[2024-12-29] MEDS: ondanSETRON 4MG INJ IVP ONE (13:45)
[2024-12-29] MEDS: hydroMORPHone 0.5 MG SYG (0.5MG/0.5ML) IVP ONE (13:46)
[2024-12-29] MEDS: 0.9%NACL 1000ML 1,000 ML IV ONE (13:46)
[2024-12-29] MEDS ORDERED: acetaMINOPHEN 325 MG TAB PO PRN (15:00)
[2024-12-29] MEDS ORDERED: guaiFENesin SUGAR-FREE 100 MG/5 ML UDCUP PO PRN (15:00)
[2024-12-29] MEDS ORDERED: BENZOCAINE/MENTH/CETYLPYRD CL 1 EACH LOZENGE MM PRN (15:00)
[2024-12-29] MEDS ORDERED: DiphenhydrAMINE HCL 25 MG CAPSULE PO PRN (15:00)
[2024-12-29] MEDS ORDERED: DiphenhydrAMINE HCL 50 MG/ML VIAL IV PRN (15:00)
[2024-12-29] MEDS ORDERED: doCUSate SODIUM 100 MG CAP PO PRN (15:00)
[2024-12-29] MEDS ORDERED: polyETHYLene GLYCol 3350 17 GM POWD.PACK PO PRN (15:00)
[2024-12-29] MEDS ORDERED: LOPERAMIDE HCL 2 MG CAP PO PRN (15:00)
[2024-12-29] MEDS: HYDROcodone/APAP 5/325 1 TAB TABLET PO PRN (15:33)
[2024-12-29] MEDS: cefTRIAXone 1G VIAL IVPB ONE (15:34)
[2024-12-29] MEDS ORDERED: SERT-438 PO (18:44)
[2024-12-29] MEDS ORDERED: LIPA1CAP18 PO (18:44)
[2024-12-29] MEDS ORDERED: PANT20TA18 PO (18:44)
[2024-12-29] MEDS ORDERED: TOFA10TA PO (18:44)
--- NOTE | 2024-12-29 19:34 | NUR ---
PT CARE ASSUMED AT THIS TIME
--- NOTE | 2024-12-29 22:13 | HP ---
[facility] HISTORY & PHYSICAL Date Patient Seen: Dec 29, 2024 Time of Visit: 22:10 Supervising Physician: Dr Jose Hinojosa Primary Care Physician: Dr Rachna Martinez Outpatient Specialists: [ ] Inpatient Consults: [ ] PROBLEM LIST: Acute respiratory insufficiency, POA Acute abdominal pain, POA Intractable nausea and vomiting POA Acute kidney injury, likely from volume loss, vomiting, POA Hypokalemia, POA Electrolyte abnormality, POA Urinary tract infection, POA Possible lower GI bleed, multiple episodes of black tarry stool POA Alcohol abuse, mostly vodka, one pt per day, last intake was last week Hypertension, POA DM type 2, on Tresiba History of gastritis, pancreatitis, rheumatoid arthritis, psoriasis and eczema PLAN: Admit to medical-surgical floor VS per unit protocol NPO for now Start PPI b.i.d. Continue antibiotics Continue O2 therapy to keep O2 saturation above 90% Up ad kera Multimodal pain relief Facilitate ordered imaging Facilitate ordered lab Treat fever aggressively Monitor temperature curve Follow up culture results Bilateral SCDs CBC, CMP, magnesium level daily Watch out for delirium Initiate CIWA protocol HPI: 49 year old female with past medical history of DM type 2, on Tresiba, gastritis, pancreatitis, hypertension, rheumatoid arthritis, psoriasis and eczema who presented to ED via EMS with complaint of worsening abdominal pain with associated intractable nausea and vomiting and found to have possible GI bleed, UTI, and acute abdomen. Patient was seen and examined in ED with no relatives present at bedside. Apparently patient has been having issues with abdominal pain three days ago and has some issues with black tarry stool concerning for possible GI bleed that got worse today prompting ER visit. In ED CBC was done and showed no acute infection or anemia, her CMP is significant for creatinine level of 1.3, and potassium level of 3.5 and sodium level of 130. Her ABG did not reveal any acute acidosis, as well as her bicarb level was 25. UA is consistent with urinary tract infection with some ketonuria. There is pending CT of the abdomen and pelvis at this time. At present patient is currently hemodynamically stable, on2 L of oxygen, and appropriate oxygen saturation, still with significant abdominal pain, especially on palpation with associated radiation to right flank area. Her last alcohol intake was mostly with vodka, usually one pt per day. In ED patient was initiated on IV fluids, and started on IV antibiotics. Patient denies any smoking, she is vaccinated against COVID and flu. Denies any illicit drug use. PAST MEDICAL HX: see above PAST SURGICAL HX: Hysterectomy, cholecystectomy SOCIAL HISTORY: See HPI Coded Allergies: Penicillins (Verified Allergy, Unknown, 03/19/18) REVIEW OF SYSTEMS: 12 point ROS reviewed with patient. Pertinent positives mentioned above. Otherwise negative. PHYSICAL EXAM: GENERAL: alert, weak, awake oriented x 3 HEENT: EOMI, Sclera non icteric, moist mucosa NECK: Supple, no JVD, trachea midline LUNGS: Clear breath sounds bilaterally. No wheezes HEART: Regular rate and rhythm. Normal S1 and S2, without murmurs ABD: Diffuse abdominal tenderness on palpation EXT: No clubbing cyanosis or edema NEURO: Alert and oriented to person, follows commands Vital Signs (last 8hr) Date Time Temp Pulse Resp B/P (MAP) Pulse Ox O2 Delivery O2 Flow Rate FiO2 12/29/24 20:01 97.9 68 16 126/92 100 Nasal Cannula* 2 28 12/29/24 18:29 98.8 71 16 118/82 100 Room Air* 0 21 LABS: Hematology Labs: Test 12/29/24 12:53 Range/Units White Blood Count 7.4 4.8-10.8 K/uL Red Blood Count 4.40 4.00-5.50 MIL/uL Hemoglobin 13.4 12.0-16.0 g/dL Hematocrit 41.4 36-48 % Mean Corpuscular Volume 94.1 79-99 fL Mean Corpuscular Hemoglobin 30.5 27.0-33.0 pg Mean Corpuscular Hemoglobin Concent 32.4 32.0-36.0 g/dL Red Cell Distribution Width 16.4 H 11.0-15.5 % Platelet Count 221 130-400 K/uL Mean Platelet Volume 10.5 7.5-10.5 fL Immature Granulocyte % (Auto) 0.3 0-1 % Neutrophils (%) (Auto) 61.7 40.0-77.0 % Lymphocytes (%) (Auto) 27.3 21.0-51.0 % Monocytes (%) (Auto) 10.1 3.0-13.0 % Eosinophils (%) (Auto) 0.3 0.0-8.0 % Basophils (%) (Auto) 0.3 0.0-5.0 % Neutrophils # (Auto) 4.5 1.8-7.7 K/uL Lymphocytes # (Auto) 2.0 1.0-4.8 K/uL Monocytes # (Auto) 0.7 0.1-1.0 K/uL Eosinophils # (Auto) 0.02 0.00-0.70 K/uL Basophils # (Auto) 0.02 0.00-0.20 K/uL Absolute Immature Granulocyte (auto 0.02 0-1 K/uL Nucleated Red Blood Cells 0.0 0.0-0.19 % Chemistry Labs: Test 12/29/24 21:15 12/29/24 12:53 Range/Units Whole Blood Glucose 137 H 70-110 MG/DL Sodium Level 134 L 136-145 mmol/L Potassium Level 3.5 3.5-5.1 mmol/L Chloride Level 93 L 101-111 mmol/L Carbon Dioxide Level 25 21-32 mmol/L Blood Urea Nitrogen 18 7-18 mg/dL Creatinine 1.3 H 0.5-1.0 mg/dL Glomerular Filtration Rate Calc 50 >90 mL/min Random Glucose 162 H 70-105 mg/dL Whole Blood Ketones Quantitative 4.9 H 0.0-0.6 mmol/L Total Calcium 8.3 L 8.5-10.1 mg/dL Total Bilirubin 2.0 H 0.2-1.0 mg/dL Direct Bilirubin 0.7 H 0.0-0.3 mg/dL Aspartate Amino Transf (AST/SGOT) 177 H 10-37 U/L Alanine Aminotransferase (ALT/SGPT) 91 H 12-78 U/L Alkaline Phosphatase 121 50-136 U/L Ammonia 19 11-32 umol/L Total Protein 8.6 H 6.0-8.3 g/dL Albumin 4.3 3.5-5.0 g/dL Lipase 13 L 16-77 U/L Procalcitonin 0.30 0.05-0.5 ng/mL DIAGNOSTICS / RADIOLOGY RESULTS: PLAN NEURO: Minimize central acting medications as possible. Maintain fall precautions, adequate lighting during the day PULMONARY: Supplemental 02 as needed. Maintain aspiration precautions at all times CARDIOVASCULAR: Follow hemodynamics. Vital signs per facility protocol GI & NUTRITION: Continue with nutritional support. Continue stool softeners and laxatives as needed. KIDNEYS & ELECTROLYTES: Strict monitoring of intake, output and overall fluid balance. Avoid nephrotoxic medications to the extent possible. Medications to be dosed according to renal function. Monitor electrolytes and replace as needed ENDOCRINE: Maintain blood glucose between 100-180 at all times. Hypoglycemia protocol in place INFECTIOUS DISEASE: Trend temperature, WBC and procalcitonin level Follow cultures, deescalate antibiotics as soon as possible. Panculture if new onset fever ONCOLOGY/HEMATOLOGY/COAGULATION: Monitor for s/s of bleeding Monitor hemoglobin, coagulation studies as needed SKIN: Pressure ulcer prevention per facility protocol Specialty mattress ORTHO/REHAB: Continue PT/OT Prophylaxis: Continue GI and DVT prophylaxis Code Status: Full Resuscitation Disposition: TBD Other: Total patient care time exceeds 35 minutes excluding all procedures. Supervising physician: JUVENTINO Oneil APRN Dec 29, 2024 22:13
[2024-12-29 23:07] LABS: HEMATOCRIT 36.6 % (36-48)
[2024-12-29] MEDS: M.V.I. IV [ADULT] 10 ML, FOLic ACID 5 MG/ML VIAL 1 MG, THIAMINE HCL 100 MG in 0.9%NACL ... IV ONE (23:48)
[2024-12-29] MEDS: morPHINE 2 MG SYG IVP PRN (23:59)
[2024-12-30] VITALS (8 sets, daily range): BP systolic 105–140; BP diastolic 73–86; PULSE 65–79; RESP 17–20; TEMP 97.8–98.4; O2SAT 97
[2024-12-30 01:06] LABS: HEMOGLOBIN A1C 8.7 % (4.0-6.0)
--- NOTE | 2024-12-30 02:48 | NUR ---
REPORT GIVEN TO MICAELA KIM AT THIS TIME
--- NOTE | 2024-12-30 07:57 | HMCIMG ---
CT ABDOMEN/PELVIS W/O CONTRAST HISTORY: Mid abdominal pain COMPARISON: 11/21/2022 TECHNIQUE: Multiple sequential axial images of the abdomen and pelvis were obtained from the dome of the diaphragm through symphysis pubis. Patient was not given contrast through intravenous route. Oral contrast was not given. FINDINGS: No pleural effusion is seen bilaterally. There is no evidence of parenchymal disease or pulmonary nodule of the visualized lower lungs. Degenerative changes of the thoracolumbar spine are present. The heart is not enlarged. Liver is enlarged with fatty changes measuring 16 cm. Postcholecystectomy changes are seen. There is minimal left perinephric fat stranding may be related to pyelonephritis. Urinalysis correlation with helpful. There is diverticulosis. The liver, spleen, adrenal glands and pancreas are unremarkable. There is no evidence of hydronephrosis bilaterally. No evidence of renal stone is seen. There is diverticulosis. Fecal material is seen in the colon. There are normal size retroperitoneal and mesenteric lymph nodes. No ascites is seen. Atherosclerotic changes are present. Pelvic sidewalls are symmetric bilaterally. Bladder is moderately distended. IMPRESSION: 1. There is minimal left perinephric fat stranding may be related to pyelonephritis. Urinalysis correlation with helpful. There is diverticulosis. CT was performed with one or more following dose reduction techniques: automated exposure control, adjustment of the mA and kv according to patient's size, or use of a iterative reconstruction technique.
[2024-12-30] MEDS: MULTIVITAMIN TABLET PO SCH (09:00)
[2024-12-30] MEDS: FOLic ACID 1 MG TABLET PO SCH (09:00)
[2024-12-30] MEDS: THIAMINE HCL 100 MG/ML 2ML VIAL IVP SCH (09:06)
[2024-12-30] MEDS: PANTOPrazole 40 MG/VIAL IVP SCH (09:06)
[2024-12-30 09:52] LABS: HEMATOCRIT 35.9 % (36-48)
[2024-12-30 10:11] LABS: ALBUMIN 3.6 g/dL (3.5-5.0); BILIRUBIN,TOTAL 1.7 mg/dL (0.2-1.0); POTASSIUM 3.5 mmol/L (3.5-5.1); TOTAL PROTEIN, SERUM 7.3 g/dL (6.0-8.3)
[2024-12-30] MEDS ORDERED: PHARMACY COMMUNICATION MISC PRN (10:30)
[2024-12-30] MEDS ORDERED: chlordiazePOXIDE HCL 25 MG CAP PO PRN (10:30)
--- NOTE | 2024-12-30 13:38 | CONS ---
GASTROENTEROLOGY CONSULTATION NOTE Date of Consultation: Dec 30, 2024 Time of Consultation: 13:38 History of Present Illness: This is a 49-year-old female who is known to services with past medical history of chronic alcohol abuse with chronic pancreatitis and recently diagnosed cirrhosis, type 2 diabetes, hypertension, arthritis who presented due to nausea and vomiting. He reported abdominal pain. We were consulted due to concern for GI bleed. CT abdomen and pelvis revealing pyelonephritis. Hemoglobin 11.5. Review of Systems: CONSTITUTIONAL: No malaise or change in sensation of wellbeing. ENMT: No rhinorrhea, otorrhea, sinus pain, ear ache. CARDIOVASCULAR: No angina, palpitations, orthopnea or paroxysmal dyspnea. RESPIRATORY: No SOB. GASTROINTESTINAL: No abdominal pain, nausea, vomiting, diarrhea, hematemesis, melena or change in the patient's habitual bowel movements consistency/number. GENITOURINARY: No dysuria, hematuria or change in bladder continence. MUSCULOSKELETAL: No new muscle pain or decrease in muscular strength. No new joint swelling, redness or tenderness. SKIN: No new rash. Past Medical History: PAST MEDICAL HX: see above PAST SURGICAL HX: Hysterectomy, cholecystectomy SOCIAL HISTORY: See HPI Coded Allergies: Penicillins (Verified Allergy, Unknown, 03/19/18) Physical Exam: GEN: Awake, alert, oriented in person, time and place, and in no acute distress. HEENT: No sinus tenderness. Tympanic membranes were not examined. No rhinorrhea. Oral pharyngeal mucosa is pink, moist and within normal limits. Neck is supple with no cervical lymphadenopathy, thyromegaly or JVD. CHEST: Inspection, palpation and percussion of the chest were unremarkable. Lung auscultation revealed normal breath sounds bilaterally. CARDIAC: PMI is within normal limits. Heart sounds are regular. Normal S1, S2. No gallop or murmur. ABD: Soft, non-tender and not distended. No peritoneal signs on palpation. No organomegaly. Normal bowel sounds. EXT: No cyanosis or clubbing. No edema. SKIN: Intact. No rashes. JOINTS: No evidence of synovitis or acute arthritis. NEURO: Alert and oriented to name, place and person. Cranial nerve examination is unremarkable. No focal motor deficits. Normal speech. Gait is normal. Strength is normal. Vital Sign (Last 24 Hours) 12/30/24 12/30/24 03:05 11:33 Temp 97.9 Pulse 70 Resp 18 B/P (MAP) 114/76 Pulse Ox 98 O2 Delivery Room Air O2 Flow Rate 0 FiO2 21 Laboratory: [ ] Laboratory: Test 12/30/24 11:01 12/30/24 09:40 12/30/24 02:17 12/29/24 23:01 Range/Units Whole Blood Glucose 96 70-110 MG/DL Hemoglobin 11.5 L 12.0-16.0 g/dL Hematocrit 35.9 L 36-48 % Sodium Level 138 136-145 mmol/L Potassium Level 3.5 3.5-5.1 mmol/L Chloride Level 98 L 101-111 mmol/L Carbon Dioxide Level 24 21-32 mmol/L Blood Urea Nitrogen 19 H 7-18 mg/dL Creatinine 1.0 0.5-1.0 mg/dL Glomerular Filtration Rate Calc 69 >90 mL/min Random Glucose 108 H 70-105 mg/dL Total Calcium 7.5 L 8.5-10.1 mg/dL Total Bilirubin 1.7 H 0.2-1.0 mg/dL Aspartate Amino Transf (AST/SGOT) 185 H 10-37 U/L Alanine Aminotransferase (ALT/SGPT) 95 H 12-78 U/L Alkaline Phosphatase 96 50-136 U/L Total Protein 7.3 6.0-8.3 g/dL Albumin 3.6 3.5-5.0 g/dL Lipase 11 L 16-77 U/L Stool Occult Blood NEGATIVE NEGATIVE Hemoglobin A1c 8.7 H 4.0-6.0 % Estimated Average Glucose (eAG) 203 H 70-126 mg/dL Test 12/29/24 12:53 12/29/24 12:40 12/29/24 12:37 Range/Units White Blood Count 7.4 4.8-10.8 K/uL Red Blood Count 4.40 4.00-5.50 MIL/uL Mean Corpuscular Volume 94.1 79-99 fL Mean Corpuscular Hemoglobin 30.5 27.0-33.0 pg Mean Corpuscular Hemoglobin Concent 32.4 32.0-36.0 g/dL Red Cell Distribution Width 16.4 H 11.0-15.5 % Platelet Count 221 130-400 K/uL Mean Platelet Volume 10.5 7.5-10.5 fL Immature Granulocyte % (Auto) 0.3 0-1 % Neutrophils (%) (Auto) 61.7 40.0-77.0 % Lymphocytes (%) (Auto) 27.3 21.0-51.0 % Monocytes (%) (Auto) 10.1 3.0-13.0 % Eosinophils (%) (Auto) 0.3 0.0-8.0 % Basophils (%) (Auto) 0.3 0.0-5.0 % Neutrophils # (Auto) 4.5 1.8-7.7 K/uL Lymphocytes # (Auto) 2.0 1.0-4.8 K/uL Monocytes # (Auto) 0.7 0.1-1.0 K/uL Eosinophils # (Auto) 0.02 0.00-0.70 K/uL Basophils # (Auto) 0.02 0.00-0.20 K/uL Absolute Immature Granulocyte (auto 0.02 0-1 K/uL Nucleated Red Blood Cells 0.0 0.0-0.19 % Whole Blood Ketones Quantitative 4.9 H 0.0-0.6 mmol/L Direct Bilirubin 0.7 H 0.0-0.3 mg/dL Ammonia 19 11-32 umol/L Procalcitonin 0.30 0.05-0.5 ng/mL Serum Alcohol < 3 0-10 mg/dL Blood Gas Specimen Type Arterial Arterial Blood pH 7.447 7.350-7.450 Arterial Blood Partial Pressure CO2 33 32-45 mmHg Arterial Blood Partial Pressure O2 93.1 83.0-108.0 mmHg Arterial Blood HCO3 22.2 21.0-28.0 mmol/L Arterial Blood Oxygen Saturation 97.5 94.0-98.0 % Arterial Blood Base Excess -1.0 -2.0-3.0 mmol/L Blood Gas Temperature 37.0 35.5-37.0 CELSIUS Blood Gas Vent Mode RA ROOM AIR FiO2 21.0 % Blood Gas Specimen Comment 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 Color DARK-YELLOW YELLOW Urine Appearance CLOUDY H CLEAR Urine pH 6.0 5.0-8.0 Urine Specific [place] 1.034 H 1.001-1.031 Urine Protein 200 H NEGATIVE mg/dL Urine Glucose (UA) 30 H NEGATIVE mg/dL Urine Ketones 40 H NEGATIVE mg/dL Urine Occult Blood NEGATIVE NEGATIVE Urine Nitrate NEGATIVE NEGATIVE Urine Bilirubin 1 H NEGATIVE mg/dL Urine Urobilinogen >=8.0 H 0.2-1.0 mg/dL Urine Leukocyte Esterase 75 H NEGATIVE Aniket/uL Urine RBC 2-5 H 0-1 /HPF Urine WBC 11-25 H 0-1 /HPF Urine Squamous Epithelial Cells MANY 0-2 /HPF Urine Bacteria None None Seen /HPF Urine Hyaline Casts 11-25 H 0-1 /LPF /LPF Current Medications Medications (Trade) Dose Ordered Sig/Fidelina Route PRN Reason Start Time Stop Time Status Last Admin Dose Admin Acetaminophen (TYLenol 325MG TAB) 650 mg Q6H PRN PO MILD PAIN (1-3) 12/29/24 15:00 01/28/25 14:59 Acetaminophen (TYLenol 500MG TAB) 500 mg Q6H PRN PO TEMP < 101.1 AND/OR HEADACHE 12/30/24 10:30 01/29/25 10:29 Acetaminophen/ Hydrocodone Bitart (NORco 5/325MG) 1 tab Q6H PRN PO MODERATE PAIN (4-6) 12/29/24 15:00 01/03/25 14:59 12/29/24 15:33 1 TAB Benzocaine (Cepacol Sore Throat Lozenge) 1 each Q2H PRN MM SORE THROAT 12/29/24 15:00 01/28/25 14:59 Ceftriaxone Sodium (ROCEphine 1G INJ) 1 gm Q24H IVPB 12/30/24 15:30 01/09/25 15:29 Chlordiazepoxide HCl (LIBrium 25 MG CAP) 25 mg Q2H PRN PO ALCOHOL WITHDRAWAL PROTOCOL 12/30/24 10:30 01/06/25 10:29 Diphenhydramine HCl (BENAdryl CAP) 25 mg Q4H PRN PO MILD ITCHING/RASH 12/29/24 15:00 01/28/25 14:59 Diphenhydramine HCl (BENAdryl INJ) 25 mg Q6H PRN IV SEVERE ITCHING/RASH 12/29/24 15:00 01/28/25 14:59 Docusate Sodium (COLace 100MG CAP) 100 mg BID PRN PO CONSTIPATION 12/29/24 15:00 01/28/25 14:59 Folic Acid (FOLic ACID 1 MG TABLET) 1 mg DAILY PO 12/30/24 09:00 01/29/25 08:59 Guaifenesin (RobiTUSSin SUGAR-FREE 100 MG/ 5 ML UDCUP) 200 mg Q4H PRN PO COUGH 12/29/24 15:00 01/28/25 14:59 Lactulose (Constulose 20gm/ 30ml Udcup) 20 gm BID PRN PO CONSTIPATION 12/29/24 15:00 01/28/25 14:59 Loperamide HCl (Imodium) 2 mg Q6H PRN PO AFTER EACH LOOSE STOOL 12/29/24 15:00 01/28/25 14:59 Lorazepam (AtiVAN) 2 mg Q4H PRN IVP ALCOHOL WITHDRAWAL PROTOCOL 12/30/24 10:30 01/06/25 10:29 Morphine Sulfate (morPHINE 2MG SYG) 2 mg Q4H PRN IVP SEVERE PAIN (7-10) 12/29/24 22:30 01/05/25 22:29 12/30/24 09:05 2 MG Multivitamins Therapeutic (Multivitamin Tablet) 1 tab DAILY PO 12/30/24 09:00 01/29/25 08:59 Ondansetron HCl (zoFRAN 4MG INJ) 4 mg Q4H PRN IV NAUSEA 12/30/24 10:30 01/29/25 10:29 Pantoprazole Sodium (PROTonix 40MG INJ) 40 mg BID IVP 12/30/24 09:00 01/29/25 08:59 12/30/24 09:06 40 MG Pharmacy Profile Note (Pharmacy Communication) 1 each PROTOCOL PRN MISC ETOH Withdrawal Score changes 12/30/24 10:30 01/06/25 10:29 Polyethylene Glycol (MIRalax 3350 17 GM POWD.PACK) 17 gm DAILY PRN PO CONSTIPATION 12/29/24 15:00 01/28/25 14:59 Thiamine HCl (Vitamin B-1) 100 mg DAILY IVP 12/30/24 09:00 01/29/25 08:59 12/30/24 09:06 100 MG Diagnostics / Radiology: [COPY/PASTE HERE IF NO REPORTS PLEASE DELETE SECTION] Assessment: Concern for GI bleed Acute blood loss anemia Esophageal varices Chronic pancreatitis Plan: EGD in am Continue GI prophylaxis Advance diet as tolerated Avoid NSAIDs Antireflux measures Monitor H&H and transfuse as needed Call with questions, concerns or change in clinical status Patient to follow-up at clinic post discharge Thank you for this consult [facility] Dec 30, 2024 13:38
--- NOTE | 2024-12-30 14:41 | NUR ---
DCP Patient states lives with Elissa Lawton, Mother [phone]; in a house with a tub. States she is disabled, remains independent and drives self. States able to complete ADL's on her own. States has a cane but does not use it. Denied home health services, home care provider or dialysis. PCP - [facility]. Upon discharge, Elissa Lawton, Mother [phone] and assist with care, as needed. Patient may need a shower chair upon discharge. Referred to PCP for prescription. Addendum: 12/30/24 at 1445 by VIOLA ACEVES RN CM Amended: Links added.
[2024-12-30] MEDS ORDERED: GLUCAGON 1MG KIT 1 MG ML IM PRN (15:00)
[2024-12-30] MEDS ORDERED: DEXTROSE 50%-WATER 50 ML DISP.SYRIN IV PRN (15:00)
[2024-12-30] MEDS ORDERED: PoTASSium chloRIDE 20MEQ/100ML 100 ML IV PRN (15:00)
[2024-12-30] MEDS: ondanSETRON 4MG INJ IV PRN (15:21)
[2024-12-30] MEDS: chlordiazePOXIDE HCL 25 MG CAP PO ONE (15:22)
[2024-12-30] MEDS: cefTRIAXone 1G VIAL IVPB SCH (15:22)
[2024-12-30] MEDS: MAGNESIUM 2GM PREMIX 50ML 50 ML IV PRN (16:11)
[2024-12-30 16:22] LABS: HEMATOCRIT 38.1 % (36-48)
--- NOTE | 2024-12-30 16:52 | PN ---
[facility] PROGRESS NOTE Date Patient Seen: Dec 30, 2024 Time of Visit: 16:33 Supervising Physician: ROBERT VAUGHN Primary Care Physician: Dr Rachna Martinez Outpatient Specialists: [ ] Inpatient Consults: [facility] [facility] PROBLEM LIST: Acute Intractable Abdominal pain with Melena Liver Cirrhosis , MELD score pdg INR Acute Alcoholic Withdrawal , CIWA of 10 Acute Left Sided Pyelonephritis Chronic Alcoholism in relapse Acute Kidney Failure ,resolved Hypertension, POA DM type 2, on Tresiba History of gastritis, pancreatitis, rheumatoid arthritis, psoriasis and eczema INTERVAL HISTORY: Patient was seen and examined by me at bedside, she is sitting up in bed, c/o of nausea . She continues with headache and is visibily anxious during our exam . No further melanotic stool . Her hg hs remained stable Gi has been consulted given her melena and liver cirrhosis hx , pending possible EGD . Creatinine improved , now at 1.0 . Magnesium critically low at 0.9 and being replaced. Mildy elevated liver enzymes with bilirubin at 1.7 , Lipase normal ABd CT revealing Left perinephric fat stranding consistent with pyelonephritis. REVIEW OF SYSTEMS: 12 point ROS reviewed with patient. Pertinent positives mentioned above. Otherwise negative. PHYSICAL EXAM: GENERAL: alert, weak, awake oriented x 3,anxious affect HEENT: EOMI, Sclera non icteric, moist mucosa NECK: Supple, no JVD, trachea midline LUNGS: Clear breath sounds bilaterally. No wheezes HEART: Regular rate and rhythm. Normal S1 and S2, without murmurs ABD: Diffuse abdominal tenderness on palpation EXT: No clubbing cyanosis or edema,tremor in bilateral extremities NEURO: Alert and oriented to person, follows commands Vital Signs (last 8hr) Date Time Temp Pulse Resp B/P (MAP) Pulse Ox O2 Delivery O2 Flow Rate FiO2 12/30/24 11:33 97.9 70 18 114/76 98 Room Air LABS: Hematology Labs: Test 12/30/24 16:10 12/29/24 12:53 Range/Units Hemoglobin 12.1 12.0-16.0 g/dL Hematocrit 38.1 36-48 % White Blood Count 7.4 4.8-10.8 K/uL Red Blood Count 4.40 4.00-5.50 MIL/uL Mean Corpuscular Volume 94.1 79-99 fL Mean Corpuscular Hemoglobin 30.5 27.0-33.0 pg Mean Corpuscular Hemoglobin Concent 32.4 32.0-36.0 g/dL Red Cell Distribution Width 16.4 H 11.0-15.5 % Platelet Count 221 130-400 K/uL Mean Platelet Volume 10.5 7.5-10.5 fL Immature Granulocyte % (Auto) 0.3 0-1 % Neutrophils (%) (Auto) 61.7 40.0-77.0 % Lymphocytes (%) (Auto) 27.3 21.0-51.0 % Monocytes (%) (Auto) 10.1 3.0-13.0 % Eosinophils (%) (Auto) 0.3 0.0-8.0 % Basophils (%) (Auto) 0.3 0.0-5.0 % Neutrophils # (Auto) 4.5 1.8-7.7 K/uL Lymphocytes # (Auto) 2.0 1.0-4.8 K/uL Monocytes # (Auto) 0.7 0.1-1.0 K/uL Eosinophils # (Auto) 0.02 0.00-0.70 K/uL Basophils # (Auto) 0.02 0.00-0.20 K/uL Absolute Immature Granulocyte (auto 0.02 0-1 K/uL Nucleated Red Blood Cells 0.0 0.0-0.19 % Chemistry Labs: Test 12/30/24 15:49 12/30/24 09:40 12/29/24 23:01 12/29/24 12:53 Range/Units Whole Blood Glucose 87 70-110 MG/DL Sodium Level 138 136-145 mmol/L Potassium Level 3.5 3.5-5.1 mmol/L Chloride Level 98 L 101-111 mmol/L Carbon Dioxide Level 24 21-32 mmol/L Blood Urea Nitrogen 19 H 7-18 mg/dL Creatinine 1.0 0.5-1.0 mg/dL Glomerular Filtration Rate Calc 69 >90 mL/min Random Glucose 108 H 70-105 mg/dL Total Calcium 7.5 L 8.5-10.1 mg/dL Magnesium Level 0.90 *L 1.80-2.40 mg/dL Total Bilirubin 1.7 H 0.2-1.0 mg/dL Aspartate Amino Transf (AST/SGOT) 185 H 10-37 U/L Alanine Aminotransferase (ALT/SGPT) 95 H 12-78 U/L Alkaline Phosphatase 96 50-136 U/L Total Protein 7.3 6.0-8.3 g/dL Albumin 3.6 3.5-5.0 g/dL Lipase 11 L 16-77 U/L Hemoglobin A1c 8.7 H 4.0-6.0 % Estimated Average Glucose (eAG) 203 H 70-126 mg/dL Whole Blood Ketones Quantitative 4.9 H 0.0-0.6 mmol/L Direct Bilirubin 0.7 H 0.0-0.3 mg/dL Ammonia 19 11-32 umol/L Procalcitonin 0.30 0.05-0.5 ng/mL DIAGNOSTICS / RADIOLOGY RESULTS: [ ] PLAN NEURO: Minimize central acting medications as possible. Maintain fall precautions, adequate lighting during the day PULMONARY: Supplemental 02 as needed. Maintain aspiration precautions at all times CARDIOVASCULAR: Follow hemodynamics. Vital signs per facility protocol GI & NUTRITION: Continue with nutritional support. Continue stool softeners and laxatives as needed. KIDNEYS & ELECTROLYTES: Strict monitoring of intake, output and overall fluid balance. Avoid nephrotoxic medications to the extent possible. Medications to be dosed according to renal function. Monitor electrolytes and replace as needed ENDOCRINE: Maintain blood glucose between 100-180 at all times. Hypoglycemia protocol in place INFECTIOUS DISEASE: Trend temperature, WBC and procalcitonin level Follow cultures, deescalate antibiotics as soon as possible. Panculture if new onset fever ONCOLOGY/HEMATOLOGY/COAGULATION: Monitor for s/s of bleeding Monitor hemoglobin, coagulation studies as needed SKIN: Pressure ulcer prevention per facility protocol Specialty mattress ORTHO/REHAB: Continue PT/OT Prophylaxis: Continue GI and DVT prophylaxis Code Status: Full Resuscitation Disposition: TBD Other: Total patient care time exceeds 35 minutes excluding all procedures. LILLI BELTRAN Dec 30, 2024 16:52
[2024-12-30 17:40] LABS: INR 1.14 (0.85-1.15); PROTHROMBIN TIME 11.9 SEC (9.6-11.6)
[2024-12-30] MEDS: LACTULOSE 20 GM/30 ML UDCUP PO PRN (20:06)
[2024-12-30] MEDS: LORazepam 2 MG/ML 1 ML VIAL IVP PRN (20:06)
[2024-12-31] VITALS (24 sets, daily range): BP systolic 97–148; BP diastolic 54–87; PULSE 64–95; RESP 16–20; TEMP 97.2–99; O2SAT 97–99
[2024-12-31 06:32] LABS: BASOPHILS # (AUTO) 0.01 K/uL (0.00-0.20); BASOPHILS % (AUTO) 0.2 % (0.0-5.0); EOSINOPHILS % (AUTO) 1.8 % (0.0-8.0); HEMATOCRIT 35.8 % (36-48); IMMATURE GRANULOCYTE ABSOLUTE 0.01 K/uL (0-1); LYMPHOCYTES # (AUTO) 1.1 K/uL (1.0-4.8); LYMPHOCYTES % (AUTO) 19.4 % (21.0-51.0); MEAN CORPUSCULAR HEMOGLOBIN 30.5 pg (27.0-33.0); MEAN CORPUSCULAR HGB CONC 32.7 g/dL (32.0-36.0); MEAN CORPUSCULAR VOLUME 93.5 fL (79-99); MONOCYTES # (AUTO) 0.7 K/uL (0.1-1.0); MONOCYTES % (AUTO) 12.7 % (3.0-13.0); NEUTROPHILS # (AUTO) 3.6 K/uL (1.8-7.7); NEUTROPHILS % (AUTO) 65.7 % (40.0-77.0); PLATELET COUNT (AUTO) 143 K/uL (130-400); RED BLOOD CELL COUNT(AUTO) 3.83 MIL/uL (4.00-5.50); RED CELL DISTRIBUTION WIDTH 16.2 % (11.0-15.5); WHITE BLOOD COUNT (AUTO) 5.5 K/uL (4.8-10.8)
[2024-12-31 06:43] LABS: ALBUMIN 3.4 g/dL (3.5-5.0); BILIRUBIN,TOTAL 1.3 mg/dL (0.2-1.0); MAGNESIUM 2.2 mg/dL (1.80-2.40); POTASSIUM 3.3 mmol/L (3.5-5.1); TOTAL PROTEIN, SERUM 7.1 g/dL (6.0-8.3)
[2024-12-31] MEDS: THIAMINE HCL 100 MG/ML 2ML VIAL IVP SCH (10:20)
[2024-12-31] MEDS ORDERED: COMPOUND IV REFRIGERATED 1 EACH IVSOLN MISC PRN (10:30)
[2024-12-31] MEDS: [UNRECOGNIZED DRUG - MIXTURE] IV SCH (11:14)
--- NOTE | 2024-12-31 11:46 | NUR ---
OFF UNIT FOR EGD
[2024-12-31] MEDS: chlordiazePOXIDE HCL 25 MG CAP PO SCH (12:00)
[2024-12-31] MEDS ORDERED: proPOFol 10 MG/ML 20ML VIAL IV ONE (13:20)
--- NOTE | 2024-12-31 14:41 | PN ---
[facility] PROGRESS NOTE Date Patient Seen: Dec 31, 2024 Time of Visit: 14:35 Supervising Physician: ROBERT VAUGHN Primary Care Physician: Dr Rachna Martinez Outpatient Specialists: [ ] Inpatient Consults: [facility] PROBLEM LIST: Acute Intractable Abdominal pain with Melena , hx of Esophageal varices Liver Cirrhosis , MELD score 14, <2% Acute Alcoholic Withdrawal , CIWA of Acute Left Sided Pyelonephritis Chronic Alcoholism in relapse Acute Kidney Failure ,resolved Hypertension, POA DM type 2, on Tresiba History of gastritis, pancreatitis, rheumatoid arthritis, psoriasis and eczema INTERVAL HISTORY: Patient was seen and examined by me at bedside, No further melanotic stool . Her hg hs remained stable Gi has been consulted given her melena and liver cirrhosis hx , pending EGD for today. Magnesium level improved from 0.9-2.[address] revealing Left perinephric fat stranding consistent with pyelonephritis. continues on IV antibiotics. REVIEW OF SYSTEMS: 12 point ROS reviewed with patient. Pertinent positives mentioned above. Otherwise negative. PHYSICAL EXAM: GENERAL: alert, weak, awake oriented x 3,anxious affect HEENT: EOMI, Sclera non icteric, moist mucosa NECK: Supple, no JVD, trachea midline LUNGS: Clear breath sounds bilaterally. No wheezes HEART: Regular rate and rhythm. Normal S1 and S2, without murmurs ABD: Diffuse abdominal tenderness on palpation EXT: No clubbing cyanosis or edema,tremor in bilateral extremities NEURO: Alert and oriented to person, follows commands Vital Signs (last 8hr) Date Time Temp Pulse Resp B/P (MAP) Pulse Ox O2 Delivery O2 Flow Rate FiO2 12/31/24 14:09 97.5 66 17 116/71 99 Room Air 12/31/24 13:59 65 17 116/71 99 Room Air 12/31/24 13:54 64 16 114/73 99 Room Air 12/31/24 13:49 66 16 113/73 99 Room Air 12/31/24 13:44 67 17 105/64 98 Room Air 12/31/24 13:39 68 16 102/61 99 Room Air 12/31/24 13:34 73 17 99/54 99 Room Air 12/31/24 13:29 97.3 69 16 97/62 99 Room Air 12/31/24 12:00 98.2 82 19 110/72 97 Room Air 12/31/24 08:45 97 Room Air* 0 21 12/31/24 08:00 97.2 95 19 148/77 97 Room Air LABS: Hematology Labs: Test 12/31/24 06:22 Range/Units White Blood Count 5.5 4.8-10.8 K/uL Red Blood Count 3.83 L 4.00-5.50 MIL/uL Hemoglobin 11.7 L 12.0-16.0 g/dL Hematocrit 35.8 L 36-48 % Mean Corpuscular Volume 93.5 79-99 fL Mean Corpuscular Hemoglobin 30.5 27.0-33.0 pg Mean Corpuscular Hemoglobin Concent 32.7 32.0-36.0 g/dL Red Cell Distribution Width 16.2 H 11.0-15.5 % Platelet Count 143 # 130-400 K/uL Mean Platelet Volume 9.9 7.5-10.5 fL Immature Granulocyte % (Auto) 0.2 0-1 % Neutrophils (%) (Auto) 65.7 40.0-77.0 % Lymphocytes (%) (Auto) 19.4 L 21.0-51.0 % Monocytes (%) (Auto) 12.7 3.0-13.0 % Eosinophils (%) (Auto) 1.8 0.0-8.0 % Basophils (%) (Auto) 0.2 0.0-5.0 % Neutrophils # (Auto) 3.6 1.8-7.7 K/uL Lymphocytes # (Auto) 1.1 1.0-4.8 K/uL Monocytes # (Auto) 0.7 0.1-1.0 K/uL Eosinophils # (Auto) 0.10 0.00-0.70 K/uL Basophils # (Auto) 0.01 0.00-0.20 K/uL Absolute Immature Granulocyte (auto 0.01 0-1 K/uL Nucleated Red Blood Cells 0.0 0.0-0.19 % Chemistry Labs: Test 12/31/24 11:04 12/31/24 06:22 12/30/24 09:40 12/29/24 23:01 Range/Units Whole Blood Glucose 152 H 70-110 MG/DL Sodium Level 134 L 136-145 mmol/L Potassium Level 3.3 L 3.5-5.1 mmol/L Chloride Level 98 L 101-111 mmol/L Carbon Dioxide Level 21 21-32 mmol/L Blood Urea Nitrogen 12 7-18 mg/dL Creatinine 1.0 0.5-1.0 mg/dL Glomerular Filtration Rate Calc 69 >90 mL/min Random Glucose 155 H 70-105 mg/dL Total Calcium 7.8 L 8.5-10.1 mg/dL Magnesium Level 2.20 1.80-2.40 mg/dL Total Bilirubin 1.3 #H 0.2-1.0 mg/dL Aspartate Amino Transf (AST/SGOT) 133 H 10-37 U/L Alanine Aminotransferase (ALT/SGPT) 88 H 12-78 U/L Alkaline Phosphatase 96 50-136 U/L Total Protein 7.1 6.0-8.3 g/dL Albumin 3.4 L 3.5-5.0 g/dL Lipase 11 L 16-77 U/L Hemoglobin A1c 8.7 H 4.0-6.0 % Estimated Average Glucose (eAG) 203 H 70-126 mg/dL Coagulation Labs: Test 12/30/24 17:29 Range/Units Prothrombin Time 11.9 H 9.6-11.6 SEC Prothromb Time International Ratio 1.14 0.85-1.15 DIAGNOSTICS / RADIOLOGY RESULTS: [ ] PLAN NEURO: Minimize central acting medications as possible. Maintain fall precautions, adequate lighting during the day PULMONARY: Supplemental 02 as needed. Maintain aspiration precautions at all times CARDIOVASCULAR: Follow hemodynamics. Vital signs per facility protocol GI & NUTRITION: Continue with nutritional support. Continue stool softeners and laxatives as needed. KIDNEYS & ELECTROLYTES: Strict monitoring of intake, output and overall fluid balance. Avoid nephrotoxic medications to the extent possible. Medications to be dosed according to renal function. Monitor electrolytes and replace as needed ENDOCRINE: Maintain blood glucose between 100-180 at all times. Hypoglycemia protocol in place INFECTIOUS DISEASE: Trend temperature, WBC and procalcitonin level Follow cultures, deescalate antibiotics as soon as possible. Panculture if new onset fever ONCOLOGY/HEMATOLOGY/COAGULATION: Monitor for s/s of bleeding Monitor hemoglobin, coagulation studies as needed SKIN: Pressure ulcer prevention per facility protocol Specialty mattress ORTHO/REHAB: Continue PT/OT Prophylaxis: Continue GI and DVT prophylaxis Code Status: Full Resuscitation Disposition: TBD Other: Total patient care time exceeds 35 minutes excluding all procedures. LILLI BELTRAN Dec 31, 2024 14:41
[2024-12-31] MEDS: CEFTRIAXONE 2GM VIAL IVPB SCH (17:53)
[2024-12-31] MEDS: PoTASSium chloRIDE 20MEQ ER 20 MEQ ERTAB PO PRN (20:04)
[2025-01-01] VITALS (9 sets, daily range): BP systolic 98–133; BP diastolic 65–90; PULSE 52–90; RESP 16–21; TEMP 97.5–98.5; O2SAT 95–96
[2025-01-01 05:28] LABS: BASOPHILS # (AUTO) 0.01 K/uL (0.00-0.20); BASOPHILS % (AUTO) 0.2 % (0.0-5.0); EOSINOPHILS % (AUTO) 2.2 % (0.0-8.0); HEMATOCRIT 35.4 % (36-48); IMMATURE GRANULOCYTE ABSOLUTE 0.02 K/uL (0-1); LYMPHOCYTES # (AUTO) 1.1 K/uL (1.0-4.8); MEAN CORPUSCULAR HEMOGLOBIN 30.5 pg (27.0-33.0); MEAN CORPUSCULAR HGB CONC 33.1 g/dL (32.0-36.0); MEAN CORPUSCULAR VOLUME 92.4 fL (79-99); MONOCYTES # (AUTO) 0.5 K/uL (0.1-1.0); MONOCYTES % (AUTO) 11.8 % (3.0-13.0); NEUTROPHILS # (AUTO) 2.9 K/uL (1.8-7.7); NEUTROPHILS % (AUTO) 62.4 % (40.0-77.0); PLATELET COUNT (AUTO) 130 K/uL (130-400); RED BLOOD CELL COUNT(AUTO) 3.83 MIL/uL (4.00-5.50); RED CELL DISTRIBUTION WIDTH 15.9 % (11.0-15.5); WHITE BLOOD COUNT (AUTO) 4.6 K/uL (4.8-10.8)
[2025-01-01 05:39] LABS: ALBUMIN 3.2 g/dL (3.5-5.0); BILIRUBIN,TOTAL 0.9 mg/dL (0.2-1.0); CREATININE 1.1 mg/dL (0.5-1.0); MAGNESIUM 1.6 mg/dL (1.80-2.40); POTASSIUM 3.8 mmol/L (3.5-5.1); TOTAL PROTEIN, SERUM 6.8 g/dL (6.0-8.3)
--- NOTE | 2025-01-01 09:54 | PN ---
GASTROENTEROLOGY PROGRESS NOTE Date of Visit: Jan 01, 2025 Time of Visit: 09:54 Events / Notes: No acute events overnight. Patient underwent EGD revealing esophageal stenosis there was a benign-appearing and hiatal hernia. Review of Systems: CONSTITUTIONAL: No malaise or change in sensation of wellbeing. ENMT: No rhinorrhea, otorrhea, sinus pain, ear ache. CARDIOVASCULAR: No angina, palpitations, orthopnea or paroxysmal dyspnea. RESPIRATORY: No SOB. GASTROINTESTINAL: No abdominal pain, nausea, vomiting, diarrhea, hematemesis, melena or change in the patient's habitual bowel movements consistency/number. GENITOURINARY: No dysuria, hematuria or change in bladder continence. MUSCULOSKELETAL: No new muscle pain or decrease in muscular strength. No new j oint swelling, redness or tenderness. SKIN: No new rash. Physical Exam: GEN: Awake, alert, oriented in person, time and place, and in no acute distress. HEENT: No sinus tenderness. Tympanic membranes were not examined. No rhinorrhea. Oral pharyngeal mucosa is pink, moist and within normal limits. Neck is supple with no cervical lymphadenopathy, thyromegaly or JVD. CHEST: Inspection, palpation and percussion of the chest were unremarkable. Lung auscultation revealed normal breath sounds bilaterally. CARDIAC: PMI is within normal limits. Heart sounds are regular. Normal S1, S2. No gallop or murmur. ABD: Soft, non-tender and not distended. No peritoneal signs on palpation. No organomegaly. Normal bowel sounds. EXT: No cyanosis or clubbing. No edema. SKIN: Intact. No rashes. JOINTS: No evidence of synovitis or acute arthritis. NEURO: Alert and oriented to name, place and person. Cranial nerve examination is unremarkable. No focal motor deficits. Normal speech. Gait is normal. Strength is normal. Vital Signs (last 8hr) Date Time Temp Pulse Resp B/P (MAP) Pulse Ox O2 Delivery O2 Flow Rate FiO2 01/01/25 08:33 95 Room Air* 0 21 01/01/25 08:00 98.1 52 16 118/70 95 Room Air 01/01/25 04:36 97.5 69 19 102/65 97 Room Air Laboratory: [ ] Laboratory: Test 01/01/25 05:19 01/01/25 05:14 12/30/24 17:29 Range/Units Whole Blood Glucose 311 H 70-110 MG/DL White Blood Count 4.6 L 4.8-10.8 K/uL Red Blood Count 3.83 L 4.00-5.50 MIL/uL Hemoglobin 11.7 L 12.0-16.0 g/dL Hematocrit 35.4 L 36-48 % Mean Corpuscular Volume 92.4 79-99 fL Mean Corpuscular Hemoglobin 30.5 27.0-33.0 pg Mean Corpuscular Hemoglobin Concent 33.1 32.0-36.0 g/dL Red Cell Distribution Width 15.9 H 11.0-15.5 % Platelet Count 130 130-400 K/uL Mean Platelet Volume 10.4 7.5-10.5 fL Immature Granulocyte % (Auto) 0.4 0-1 % Neutrophils (%) (Auto) 62.4 40.0-77.0 % Lymphocytes (%) (Auto) 23.0 21.0-51.0 % Monocytes (%) (Auto) 11.8 3.0-13.0 % Eosinophils (%) (Auto) 2.2 0.0-8.0 % Basophils (%) (Auto) 0.2 0.0-5.0 % Neutrophils # (Auto) 2.9 1.8-7.7 K/uL Lymphocytes # (Auto) 1.1 1.0-4.8 K/uL Monocytes # (Auto) 0.5 0.1-1.0 K/uL Eosinophils # (Auto) 0.10 0.00-0.70 K/uL Basophils # (Auto) 0.01 0.00-0.20 K/uL Absolute Immature Granulocyte (auto 0.02 0-1 K/uL Nucleated Red Blood Cells 0.0 0.0-0.19 % Sodium Level 136 136-145 mmol/L Potassium Level 3.8 3.5-5.1 mmol/L Chloride Level 100 L 101-111 mmol/L Carbon Dioxide Level 27 21-32 mmol/L Blood Urea Nitrogen 7 7-18 mg/dL Creatinine 1.1 H 0.5-1.0 mg/dL Glomerular Filtration Rate Calc 61 >90 mL/min Random Glucose 333 #H 70-105 mg/dL Total Calcium 8.0 L 8.5-10.1 mg/dL Magnesium Level 1.60 L 1.80-2.40 mg/dL Total Bilirubin 0.9 # 0.2-1.0 mg/dL Aspartate Amino Transf (AST/SGOT) 91 H 10-37 U/L Alanine Aminotransferase (ALT/SGPT) 82 H 12-78 U/L Alkaline Phosphatase 93 50-136 U/L Total Protein 6.8 6.0-8.3 g/dL Albumin 3.2 L 3.5-5.0 g/dL Prothrombin Time 11.9 H 9.6-11.6 SEC Prothromb Time International Ratio 1.14 0.85-1.15 Current Medications Medications (Trade) Dose Ordered Sig/Fidelina Route PRN Reason Start Time Stop Time Status Last Admin Dose Admin Acetaminophen (TYLenol 325MG TAB) 650 mg Q6H PRN PO MILD PAIN (1-3) 12/29/24 15:00 01/28/25 14:59 Acetaminophen (TYLenol 500MG TAB) 500 mg Q6H PRN PO TEMP < 101.1 AND/OR HEADACHE 12/30/24 10:30 01/29/25 10:29 Acetaminophen/ Hydrocodone Bitart (NORco 5/325MG) 1 tab Q6H PRN PO MODERATE PAIN (4-6) 12/29/24 15:00 01/03/25 14:59 12/29/24 15:33 1 TAB Benzocaine (Cepacol Sore Throat Lozenge) 1 each Q2H PRN MM SORE THROAT 12/29/24 15:00 01/28/25 14:59 Ceftriaxone Sodium (ROCEphine 1G INJ) 1 gm Q24H IVPB 12/30/24 15:30 12/30/24 16:49 DC 12/30/24 15:22 1 GM Ceftriaxone Sodium (Rocephin 2gm Inj) 2 gm Q24H IVPB 12/31/24 15:30 01/10/25 15:29 12/31/24 17:53 2 GM Chlordiazepoxide HCl (LIBrium 25 MG CAP) 25 mg Q2H PRN PO ALCOHOL WITHDRAWAL PROTOCOL 12/30/24 10:30 01/06/25 10:29 Chlordiazepoxide HCl (LIBrium 25 MG CAP) 25 mg Q8H PO 12/31/24 12:00 01/07/25 11:59 01/01/25 03:25 25 MG Dextrose (D50w) 50 ml AD PRN IV HYPOGLYCEMIA PROTOCOL 12/30/24 15:00 01/29/25 14:59 Diphenhydramine HCl (BENAdryl CAP) 25 mg Q4H PRN PO MILD ITCHING/RASH 12/29/24 15:00 01/28/25 14:59 Diphenhydramine HCl (BENAdryl INJ) 25 mg Q6H PRN IV SEVERE ITCHING/RASH 12/29/24 15:00 01/28/25 14:59 Docusate Sodium (COLace 100MG CAP) 100 mg BID PRN PO CONSTIPATION 12/29/24 15:00 01/28/25 14:59 Folic Acid (FOLic ACID 1 MG TABLET) 1 mg DAILY PO 12/30/24 09:00 01/29/25 08:59 Glucagon (Glucagon 1mg Kit) 1 mg AD PRN IM HYPOGLYCEMIA PROTOCOL 12/30/24 15:00 01/29/25 14:59 Guaifenesin (RobiTUSSin SUGAR-FREE 100 MG/ 5 ML UDCUP) 200 mg Q4H PRN PO COUGH 12/29/24 15:00 01/28/25 14:59 Lactulose (Constulose 20gm/ 30ml Udcup) 20 gm BID PRN PO CONSTIPATION 12/29/24 15:00 01/28/25 14:59 12/30/24 20:06 20 GM Loperamide HCl (Imodium) 2 mg Q6H PRN PO AFTER EACH LOOSE STOOL 12/29/24 15:00 01/28/25 14:59 Lorazepam (AtiVAN) 2 mg Q4H PRN IVP ALCOHOL WITHDRAWAL PROTOCOL 12/30/24 10:30 01/06/25 10:29 12/31/24 17:52 2 MG Magnesium Sulfate 50 ml @ 0 mls/hr PROTOCOL PRN IV PROTOCO 12/30/24 15:00 01/29/25 14:59 12/30/24 23:21 25 MLS/HR Morphine Sulfate (morPHINE 2MG SYG) 2 mg Q4H PRN IVP SEVERE PAIN (7-10) 12/29/24 22:30 01/05/25 22:29 01/01/25 02:09 2 MG Multivitamins Therapeutic (Multivitamin Tablet) 1 tab DAILY PO 12/30/24 09:00 01/29/25 08:59 Multivitamins/ Minerals 10 ml/ Folic Acid 1 mg/ Sodium Chloride 1,010.2 ml @ 70 mls/hr DAILY IV 12/31/24 09:00 01/02/25 23:26 12/31/24 11:14 70 MLS/HR Ondansetron HCl (zoFRAN 4MG INJ) 4 mg Q4H PRN IV NAUSEA 12/30/24 10:30 01/29/25 10:29 01/01/25 02:10 4 MG Pantoprazole Sodium (PROTonix 40MG INJ) 40 mg BID IVP 12/30/24 09:00 01/29/25 08:59 12/31/24 20:04 40 MG Pharmacy Profile Note (Pharmacy Communication) 1 each PROTOCOL PRN MISC ETOH Withdrawal Score changes 12/30/24 10:30 01/06/25 10:29 Polyethylene Glycol (MIRalax 3350 17 GM POWD.PACK) 17 gm DAILY PRN PO CONSTIPATION 12/29/24 15:00 01/28/25 14:59 Potassium Chloride 100 ml @ 100 mls/hr AD PRN IV POTASSIUM PROTOCOL 12/30/24 15:00 01/29/25 14:59 Potassium Chloride (K-Dur/Klor-Con 20meq) 20 meq AD PRN PO POTASSIUM PROTOCOL 12/30/24 15:00 01/29/25 14:59 12/31/24 20:04 20 MEQ Potassium Chloride (KCl 10% Elixir 20meq/15ml) 20 meq AD PRN PO POTASSIUM PROTOCOL 12/30/24 15:00 01/29/25 14:59 Thiamine HCl (Vitamin B-1) 100 mg DAILY IVP 12/30/24 09:00 12/30/24 14:57 DC 12/30/24 09:06 100 MG Thiamine HCl (Vitamin B-1) 300 mg DAILY IVP 12/31/24 09:00 01/30/25 08:59 12/31/24 10:20 300 MG Diagnostics / Radiology: [COPY/PASTE HERE IF NO REPORTS PLEASE DELETE SECTION] Assessment: Esophageal stenosis Hiatal hernia Acute blood loss anemia Esophageal varices Chronic pancreatitis Plan: Continue GI prophylaxis Advance diet as tolerated Avoid NSAIDs Antireflux measures Monitor H&H and transfuse as needed Call with questions, concerns or change in clinical status Patient to follow-up at clinic post discharge Thank you for this consult ROBERT WATTERSP Jan 01, 2025 09:54
--- NOTE | 2025-01-01 16:02 | PN ---
[facility] PROGRESS NOTE Date Patient Seen: Jan 01, 2025 Time of Visit: 15:53 Supervising Physician: DAMIR VAUGHN Primary Care Physician: Dr Rachna Martinez Outpatient Specialists: [ ] Inpatient Consults: [facility] PROBLEM LIST: Acute Intractable Abdominal pain with Melena , hx of Esophageal varices Liver Cirrhosis , MELD score 14, <2% Acute Alcoholic Withdrawal , CIWA of 6 Acute Left Sided Pyelonephritis Chronic Alcoholism in relapse Acute Kidney Failure ,resolved Hypertension, POA DM type 2, on Tresiba History of gastritis, pancreatitis, rheumatoid arthritis, psoriasis and eczema INTERVAL HISTORY: Patient was seen and examined by me at bedside, No further melanotic stool . Her hg hs remained stable Gi has been consulted given her melena and liver cirrhosis hx , she is s/p EGD - findings reveal Gastritis -biopsied , intrinsic moderate stenosis noted that was able to be traversed. Continues with electrolyte derrangements. ABd CT revealing Left perinephric fat stranding consistent with pyelonephritis. She continues to endorse flank pain. continues on IV antibiotics. Ciwa score improved now to 6 , continues on librium which will be weaned down. She continues to exporess concern for mass to right side of neck . REVIEW OF SYSTEMS: 12 point ROS reviewed with patient. Pertinent positives mentioned above. Otherwise negative. PHYSICAL EXAM: GENERAL: alert, weak, awake oriented x 3,anxious affect HEENT: EOMI, Sclera non icteric, moist mucosa NECK: Supple, no JVD, trachea midline LUNGS: Clear breath sounds bilaterally. No wheezes HEART: Regular rate and rhythm. Normal S1 and S2, without murmurs ABD: Diffuse abdominal tenderness on palpation EXT: No clubbing cyanosis or edema,tremor in bilateral extremities NEURO: Alert and oriented to person, follows commands Vital Signs (last 8hr) Date Time Temp Pulse Resp B/P (MAP) Pulse Ox O2 Delivery O2 Flow Rate FiO2 01/01/25 12:00 97.5 73 18 130/87 98 Room Air 01/01/25 08:33 95 Room Air* 0 21 01/01/25 08:00 98.1 52 16 118/70 95 Room Air LABS: Hematology Labs: Test 01/01/25 05:14 Range/Units White Blood Count 4.6 L 4.8-10.8 K/uL Red Blood Count 3.83 L 4.00-5.50 MIL/uL Hemoglobin 11.7 L 12.0-16.0 g/dL Hematocrit 35.4 L 36-48 % Mean Corpuscular Volume 92.4 79-99 fL Mean Corpuscular Hemoglobin 30.5 27.0-33.0 pg Mean Corpuscular Hemoglobin Concent 33.1 32.0-36.0 g/dL Red Cell Distribution Width 15.9 H 11.0-15.5 % Platelet Count 130 130-400 K/uL Mean Platelet Volume 10.4 7.5-10.5 fL Immature Granulocyte % (Auto) 0.4 0-1 % Neutrophils (%) (Auto) 62.4 40.0-77.0 % Lymphocytes (%) (Auto) 23.0 21.0-51.0 % Monocytes (%) (Auto) 11.8 3.0-13.0 % Eosinophils (%) (Auto) 2.2 0.0-8.0 % Basophils (%) (Auto) 0.2 0.0-5.0 % Neutrophils # (Auto) 2.9 1.8-7.7 K/uL Lymphocytes # (Auto) 1.1 1.0-4.8 K/uL Monocytes # (Auto) 0.5 0.1-1.0 K/uL Eosinophils # (Auto) 0.10 0.00-0.70 K/uL Basophils # (Auto) 0.01 0.00-0.20 K/uL Absolute Immature Granulocyte (auto 0.02 0-1 K/uL Nucleated Red Blood Cells 0.0 0.0-0.19 % Chemistry Labs: Test 01/01/25 05:19 01/01/25 05:14 Range/Units Whole Blood Glucose 311 H 70-110 MG/DL Sodium Level 136 136-145 mmol/L Potassium Level 3.8 3.5-5.1 mmol/L Chloride Level 100 L 101-111 mmol/L Carbon Dioxide Level 27 21-32 mmol/L Blood Urea Nitrogen 7 7-18 mg/dL Creatinine 1.1 H 0.5-1.0 mg/dL Glomerular Filtration Rate Calc 61 >90 mL/min Random Glucose 333 #H 70-105 mg/dL Total Calcium 8.0 L 8.5-10.1 mg/dL Magnesium Level 1.60 L 1.80-2.40 mg/dL Total Bilirubin 0.9 # 0.2-1.0 mg/dL Aspartate Amino Transf (AST/SGOT) 91 H 10-37 U/L Alanine Aminotransferase (ALT/SGPT) 82 H 12-78 U/L Alkaline Phosphatase 93 50-136 U/L Total Protein 6.8 6.0-8.3 g/dL Albumin 3.2 L 3.5-5.0 g/dL Coagulation Labs: Test 12/30/24 17:29 Range/Units Prothrombin Time 11.9 H 9.6-11.6 SEC Prothromb Time International Ratio 1.14 0.85-1.15 DIAGNOSTICS / RADIOLOGY RESULTS: [ ] PLAN NEURO: Minimize central acting medications as possible. Maintain fall precautions, adequate lighting during the day WEAN DOWN LIBRIUM PRN ATIVAN FOR CIWA GREATER THAN 8 PULMONARY: Supplemental 02 as needed. Maintain aspiration precautions at all times CARDIOVASCULAR: Follow hemodynamics. Vital signs per facility protocol GI & NUTRITION: Continue with nutritional support. Continue stool softeners and laxatives as needed. gi soft diet will follow up w GI outpatient KIDNEYS & ELECTROLYTES: Strict monitoring of intake, output and overall fluid balance. Avoid nephrotoxic medications to the extent possible. Medications to be dosed according to renal function. Monitor electrolytes and replace as needed Continue rocephin for pyelonephritis total 10 days of treatment ENDOCRINE: Maintain blood glucose between 100-180 at all times. Hypoglycemia protocol in place INFECTIOUS DISEASE: Trend temperature, WBC and procalcitonin level Follow cultures, deescalate antibiotics as soon as possible. Panculture if new onset fever ONCOLOGY/HEMATOLOGY/COAGULATION: Monitor for s/s of bleeding Monitor hemoglobin, coagulation studies as needed SKIN: Pressure ulcer prevention per facility protocol Specialty mattress ORTHO/REHAB: Continue PT/OT Prophylaxis: Continue GI and DVT prophylaxis Code Status: Full Resuscitation Disposition: TBD Other: Total patient care time exceeds 35 minutes excluding all procedures. LILLI BELTRAN Jan 01, 2025 16:02
[2025-01-01] MEDS: LORazepam 2 MG/ML 1 ML VIAL IVP PRN (17:57)
[2025-01-01] MEDS: chlordiazePOXIDE HCL 25 MG CAP PO SCH (20:07)
[2025-01-01] MEDS: PoTASSium chl 10% ELIXIR 20MEQ 20 MEQ/15 ML UDCUP PO PRN (20:07)
[2025-01-01] MEDS: MAGNESIUM OXIDE 400 MG TABLET PO SCH (20:07)
[2025-01-02] VITALS (7 sets, daily range): BP systolic 105–125; BP diastolic 50–88; PULSE 74–101; RESP 18–20; TEMP 98–98.7; O2SAT 96–99
[2025-01-02 05:19] LABS: BASOPHILS # (AUTO) 0.01 K/uL (0.00-0.20); BASOPHILS % (AUTO) 0.2 % (0.0-5.0); EOSINOPHILS # (AUTO) 0.08 K/uL (0.00-0.70); EOSINOPHILS % (AUTO) 1.9 % (0.0-8.0); HEMATOCRIT 32.5 % (36-48); IMMATURE GRANULOCYTE ABSOLUTE 0.01 K/uL (0-1); LYMPHOCYTES # (AUTO) 1.5 K/uL (1.0-4.8); LYMPHOCYTES % (AUTO) 35.9 % (21.0-51.0); MEAN CORPUSCULAR HEMOGLOBIN 30.7 pg (27.0-33.0); MEAN CORPUSCULAR HGB CONC 33.2 g/dL (32.0-36.0); MEAN CORPUSCULAR VOLUME 92.3 fL (79-99); MONOCYTES # (AUTO) 0.7 K/uL (0.1-1.0); MONOCYTES % (AUTO) 15.2 % (3.0-13.0); NEUTROPHILS % (AUTO) 46.6 % (40.0-77.0); PLATELET COUNT (AUTO) 149 K/uL (130-400); RED BLOOD CELL COUNT(AUTO) 3.52 MIL/uL (4.00-5.50); RED CELL DISTRIBUTION WIDTH 15.9 % (11.0-15.5); WHITE BLOOD COUNT (AUTO) 4.3 K/uL (4.8-10.8)
[2025-01-02 05:34] LABS: ALBUMIN 2.9 g/dL (3.5-5.0); BILIRUBIN,TOTAL 0.6 mg/dL (0.2-1.0); MAGNESIUM 1.3 mg/dL (1.80-2.40); POTASSIUM 4.4 mmol/L (3.5-5.1); TOTAL PROTEIN, SERUM 6.4 g/dL (6.0-8.3)
--- NOTE | 2025-01-02 07:40 | PN ---
GASTROENTEROLOGY PROGRESS NOTE Date of Visit: Jan 02, 2025 Time of Visit: 07:39 Events / Notes: No acute events overnight. Patient underwent EGD revealing esophageal stenosis there was a benign-appearing and hiatal hernia. Review of Systems: CONSTITUTIONAL: No malaise or change in sensation of wellbeing. ENMT: No rhinorrhea, otorrhea, sinus pain, ear ache. CARDIOVASCULAR: No angina, palpitations, orthopnea or paroxysmal dyspnea. RESPIRATORY: No SOB. GASTROINTESTINAL: No abdominal pain, nausea, vomiting, diarrhea, hematemesis, melena or change in the patient's habitual bowel movements consistency/number. GENITOURINARY: No dysuria, hematuria or change in bladder continence. MUSCULOSKELETAL: No new muscle pain or decrease in muscular strength. No new j oint swelling, redness or tenderness. SKIN: No new rash. Physical Exam: GEN: Awake, alert, oriented in person, time and place, and in no acute distress. HEENT: No sinus tenderness. Tympanic membranes were not examined. No rhinorrhea. Oral pharyngeal mucosa is pink, moist and within normal limits. Neck is supple with no cervical lymphadenopathy, thyromegaly or JVD. CHEST: Inspection, palpation and percussion of the chest were unremarkable. Lung auscultation revealed normal breath sounds bilaterally. CARDIAC: PMI is within normal limits. Heart sounds are regular. Normal S1, S2. No gallop or murmur. ABD: Soft, non-tender and not distended. No peritoneal signs on palpation. No organomegaly. Normal bowel sounds. EXT: No cyanosis or clubbing. No edema. SKIN: Intact. No rashes. JOINTS: No evidence of synovitis or acute arthritis. NEURO: Alert and oriented to name, place and person. Cranial nerve examination is unremarkable. No focal motor deficits. Normal speech. Gait is normal. Strength is normal. Vital Signs (last 8hr) Date Time Temp Pulse Resp B/P (MAP) Pulse Ox O2 Delivery O2 Flow Rate FiO2 01/02/25 03:25 98.8 89 20 105/74 95 Room Air Laboratory: [ ] Laboratory: Test 01/02/25 04:52 01/01/25 05:19 Range/Units White Blood Count 4.3 L 4.8-10.8 K/uL Red Blood Count 3.52 L 4.00-5.50 MIL/uL Hemoglobin 10.8 L 12.0-16.0 g/dL Hematocrit 32.5 L 36-48 % Mean Corpuscular Volume 92.3 79-99 fL Mean Corpuscular Hemoglobin 30.7 27.0-33.0 pg Mean Corpuscular Hemoglobin Concent 33.2 32.0-36.0 g/dL Red Cell Distribution Width 15.9 H 11.0-15.5 % Platelet Count 149 130-400 K/uL Mean Platelet Volume 10.9 H 7.5-10.5 fL Immature Granulocyte % (Auto) 0.2 0-1 % Neutrophils (%) (Auto) 46.6 40.0-77.0 % Lymphocytes (%) (Auto) 35.9 21.0-51.0 % Monocytes (%) (Auto) 15.2 H 3.0-13.0 % Eosinophils (%) (Auto) 1.9 0.0-8.0 % Basophils (%) (Auto) 0.2 0.0-5.0 % Neutrophils # (Auto) 2.0 1.8-7.7 K/uL Lymphocytes # (Auto) 1.5 1.0-4.8 K/uL Monocytes # (Auto) 0.7 0.1-1.0 K/uL Eosinophils # (Auto) 0.08 0.00-0.70 K/uL Basophils # (Auto) 0.01 0.00-0.20 K/uL Absolute Immature Granulocyte (auto 0.01 0-1 K/uL Nucleated Red Blood Cells 0.0 0.0-0.19 % White Cell Morphology Comment See comments Sodium Level 135 L 136-145 mmol/L Potassium Level 4.4 3.5-5.1 mmol/L Chloride Level 101 101-111 mmol/L Carbon Dioxide Level 28 21-32 mmol/L Blood Urea Nitrogen 9 7-18 mg/dL Creatinine 1.0 0.5-1.0 mg/dL Glomerular Filtration Rate Calc 69 >90 mL/min Random Glucose 396 H 70-105 mg/dL Total Calcium 8.6 8.5-10.1 mg/dL Magnesium Level 1.30 L 1.80-2.40 mg/dL Total Bilirubin 0.6 # 0.2-1.0 mg/dL Aspartate Amino Transf (AST/SGOT) 79 H 10-37 U/L Alanine Aminotransferase (ALT/SGPT) 83 H 12-78 U/L Alkaline Phosphatase 83 50-136 U/L Total Protein 6.4 6.0-8.3 g/dL Albumin 2.9 L 3.5-5.0 g/dL Whole Blood Glucose 311 H 70-110 MG/DL Current Medications Medications (Trade) Dose Ordered Sig/Fidelina Route PRN Reason Start Time Stop Time Status Last Admin Dose Admin Acetaminophen (TYLenol 325MG TAB) 650 mg Q6H PRN PO MILD PAIN (1-3) 12/29/24 15:00 01/28/25 14:59 Acetaminophen (TYLenol 500MG TAB) 500 mg Q6H PRN PO TEMP < 101.1 AND/OR HEADACHE 12/30/24 10:30 01/29/25 10:29 Acetaminophen/ Hydrocodone Bitart (NORco 5/325MG) 1 tab Q6H PRN PO MODERATE PAIN (4-6) 12/29/24 15:00 01/03/25 14:59 01/01/25 20:06 1 TAB Benzocaine (Cepacol Sore Throat Lozenge) 1 each Q2H PRN MM SORE THROAT 12/29/24 15:00 01/28/25 14:59 Ceftriaxone Sodium (ROCEphine 1G INJ) 1 gm Q24H IVPB 12/30/24 15:30 12/30/24 16:49 DC 12/30/24 15:22 1 GM Ceftriaxone Sodium (Rocephin 2gm Inj) 2 gm Q24H IVPB 12/31/24 15:30 01/10/25 15:29 01/01/25 17:53 2 GM Chlordiazepoxide HCl (LIBrium 25 MG CAP) 25 mg BID PO 01/01/25 21:00 01/07/25 11:59 01/01/25 20:07 25 MG Chlordiazepoxide HCl (LIBrium 25 MG CAP) 25 mg Q2H PRN PO ALCOHOL WITHDRAWAL PROTOCOL 12/30/24 10:30 01/01/25 16:02 DC Chlordiazepoxide HCl (LIBrium 25 MG CAP) 25 mg Q8H PO 12/31/24 12:00 01/01/25 16:02 DC 01/01/25 03:25 25 MG Dextrose (D50w) 50 ml AD PRN IV HYPOGLYCEMIA PROTOCOL 12/30/24 15:00 01/29/25 14:59 Diphenhydramine HCl (BENAdryl CAP) 25 mg Q4H PRN PO MILD ITCHING/RASH 12/29/24 15:00 01/28/25 14:59 Diphenhydramine HCl (BENAdryl INJ) 25 mg Q6H PRN IV SEVERE ITCHING/RASH 12/29/24 15:00 01/28/25 14:59 Docusate Sodium (COLace 100MG CAP) 100 mg BID PRN PO CONSTIPATION 12/29/24 15:00 01/28/25 14:59 Folic Acid (FOLic ACID 1 MG TABLET) 1 mg DAILY PO 12/30/24 09:00 01/29/25 08:59 01/01/25 10:01 1 MG Glucagon (Glucagon 1mg Kit) 1 mg AD PRN IM HYPOGLYCEMIA PROTOCOL 12/30/24 15:00 01/29/25 14:59 Guaifenesin (RobiTUSSin SUGAR-FREE 100 MG/ 5 ML UDCUP) 200 mg Q4H PRN PO COUGH 12/29/24 15:00 01/28/25 14:59 Lactulose (Constulose 20gm/ 30ml Udcup) 20 gm BID PRN PO CONSTIPATION 12/29/24 15:00 01/28/25 14:59 12/30/24 20:06 20 GM Loperamide HCl (Imodium) 2 mg Q6H PRN PO AFTER EACH LOOSE STOOL 12/29/24 15:00 01/28/25 14:59 Lorazepam (AtiVAN) 1 mg Q4H PRN IVP ALCOHOL WITHDRAWAL PROTOCOL 01/01/25 18:30 01/08/25 18:29 01/02/25 06:07 1 MG Lorazepam (AtiVAN) 2 mg Q4H PRN IVP ALCOHOL WITHDRAWAL PROTOCOL 12/30/24 10:30 01/01/25 16:02 DC 01/01/25 10:03 2 MG Magnesium Oxide (Mag-Ox) 400 mg BID PO 01/01/25 21:00 01/31/25 20:59 01/01/25 20:07 400 MG Magnesium Sulfate 50 ml @ 0 mls/hr PROTOCOL PRN IV PROTOCO 12/30/24 15:00 01/29/25 14:59 01/02/25 06:08 25 MLS/HR Morphine Sulfate (morPHINE 2MG SYG) 2 mg Q4H PRN IVP SEVERE PAIN (7-10) 12/29/24 22:30 01/05/25 22:29 01/02/25 03:43 2 MG Multivitamins Therapeutic (Multivitamin Tablet) 1 tab DAILY PO 12/30/24 09:00 01/29/25 08:59 01/01/25 10:01 1 TAB Multivitamins/ Minerals 10 ml/ Folic Acid 1 mg/ Sodium Chloride 1,010.2 ml @ 70 mls/hr DAILY IV 12/31/24 09:00 01/02/25 23:26 12/31/24 11:14 70 MLS/HR Ondansetron HCl (zoFRAN 4MG INJ) 4 mg Q4H PRN IV NAUSEA 12/30/24 10:30 01/29/25 10:29 01/02/25 03:50 4 MG Pantoprazole Sodium (PROTonix 40MG INJ) 40 mg BID IVP 12/30/24 09:00 01/29/25 08:59 01/01/25 20:07 40 MG Pharmacy Profile Note (Pharmacy Communication) 1 each PROTOCOL PRN MISC ETOH Withdrawal Score changes 12/30/24 10:30 01/06/25 10:29 Polyethylene Glycol (MIRalax 3350 17 GM POWD.PACK) 17 gm DAILY PRN PO CONSTIPATION 12/29/24 15:00 01/28/25 14:59 Potassium Chloride 100 ml @ 100 mls/hr AD PRN IV POTASSIUM PROTOCOL 12/30/24 15:00 01/29/25 14:59 Potassium Chloride (K-Dur/Klor-Con 20meq) 20 meq AD PRN PO POTASSIUM PROTOCOL 12/30/24 15:00 01/29/25 14:59 12/31/24 20:04 20 MEQ Potassium Chloride (KCl 10% Elixir 20meq/15ml) 20 meq AD PRN PO POTASSIUM PROTOCOL 12/30/24 15:00 01/29/25 14:59 01/01/25 20:07 20 MEQ Thiamine HCl (Vitamin B-1) 100 mg DAILY IVP 12/30/24 09:00 12/30/24 14:57 DC 12/30/24 09:06 100 MG Thiamine HCl (Vitamin B-1) 300 mg DAILY IVP 12/31/24 09:00 01/30/25 08:59 01/01/25 10:02 300 MG Diagnostics / Radiology: [COPY/PASTE HERE IF NO REPORTS PLEASE DELETE SECTION] Assessment: Esophageal stenosis Hiatal hernia Acute blood loss anemia Esophageal varices Chronic pancreatitis Plan: Continue GI prophylaxis Advance diet as tolerated Avoid NSAIDs Antireflux measures Monitor H&H and transfuse as needed Call with questions, concerns or change in clinical status Patient to follow-up at clinic post discharge Thank you for this consult ROBERT WATTERS Jan 02, 2025 07:40
--- NOTE | 2025-01-02 11:52 | HMCIMG ---
CT NECK WITHOUT CONTRAST INDICATION: Right neck mass TECHNIQUE: 3D helical CT acquisition images were obtained from the level of the skull base to the thoracic inlet without contrast material. Coronal and sagittal reformats provided. CT was performed with one or more of the following dose reduction techniques: Automated exposure control, adjustment of the mA and/or kV according to patient size, or use of iterative reconstruction technique. COMPARISON: None FINDINGS: No evidence for any marker placement to indicate area of interest. The visualized portions of the brain, skull base, orbits, and paranasal sinuses appear normal. The visualized nasopharynx and nasal cavity appear normal. The oral cavity, oropharynx, and hypopharynx appear normal. The cervical esophagus and visualized portion of the thoracic esophagus appear normal. The larynx and visualized trachea appear normal. The extramucosal spaces of the neck appear normal. The parotid and submandibular glands appear normal. The thyroid gland appears normal. No cervical lymphadenopathy noted. The visualized osseous structures and soft tissues appear normal. The upper mediastinum and lung apices appear normal. IMPRESSION: Limitations as reported. No evidence for right neck mass.
[2025-01-02] MEDS: INSULIN humuLIN R 100 UNIT/ML 3ML SQ SCH (15:58)
[2025-01-02 17:26] LABS: MAGNESIUM 1.7 mg/dL (1.80-2.40); POTASSIUM 4.6 mmol/L (3.5-5.1)
[2025-01-02] MEDS: metoCLOPRAmide 10 MG/2 ML VIAL IVP SCH (19:56)
[2025-01-02] MEDS: LORazepam 2 MG/ML 1 ML VIAL IVP ONE (23:30)
[2025-01-03] VITALS (7 sets, daily range): BP systolic 92–134; BP diastolic 66–93; PULSE 67–85; RESP 16–19; TEMP 97.9–98.4; O2SAT 99
[2025-01-03 06:01] LABS: BASOPHILS # (AUTO) 0.02 K/uL (0.00-0.20); BASOPHILS % (AUTO) 0.4 % (0.0-5.0); EOSINOPHILS # (AUTO) 0.11 K/uL (0.00-0.70); EOSINOPHILS % (AUTO) 2.2 % (0.0-8.0); HEMATOCRIT 31.9 % (36-48); IMMATURE GRANULOCYTE ABSOLUTE 0.02 K/uL (0-1); LYMPHOCYTES # (AUTO) 1.8 K/uL (1.0-4.8); LYMPHOCYTES % (AUTO) 36.3 % (21.0-51.0); MEAN CORPUSCULAR HEMOGLOBIN 30.5 pg (27.0-33.0); MEAN CORPUSCULAR HGB CONC 33.2 g/dL (32.0-36.0); MEAN CORPUSCULAR VOLUME 91.9 fL (79-99); MONOCYTES # (AUTO) 0.8 K/uL (0.1-1.0); MONOCYTES % (AUTO) 15.5 % (3.0-13.0); NEUTROPHILS # (AUTO) 2.2 K/uL (1.8-7.7); NEUTROPHILS % (AUTO) 45.2 % (40.0-77.0); PLATELET COUNT (AUTO) 171 K/uL (130-400); RED BLOOD CELL COUNT(AUTO) 3.47 MIL/uL (4.00-5.50); RED CELL DISTRIBUTION WIDTH 15.6 % (11.0-15.5); WHITE BLOOD COUNT (AUTO) 4.9 K/uL (4.8-10.8)
[2025-01-03 06:16] LABS: ALBUMIN 2.9 g/dL (3.5-5.0); BILIRUBIN,TOTAL 0.6 mg/dL (0.2-1.0); CREATININE 0.9 mg/dL (0.5-1.0); MAGNESIUM 1.1 mg/dL (1.80-2.40); POTASSIUM 4.2 mmol/L (3.5-5.1); TOTAL PROTEIN, SERUM 6.2 g/dL (6.0-8.3)
[2025-01-03] MEDS: INSULIN GLARgine 100 UNITS/ML 10 ML VIAL SQ SCH (08:30)
--- NOTE | 2025-01-03 10:36 | HMCIMG ---
US SOFT TISSUE NECK REASON: R NECK MASS . COMPARISON: CT from 01/01/2025 TECHNIQUE: Right neck ultrasound study was performed. FINDINGS: No evidence of cystic or hypoechoic mass is seen. IMPRESSION: No evidence of cystic or hypoechoic mass is seen.
--- NOTE | 2025-01-03 11:26 | NUR ---
ANXIETY EPISODE PATIENT CURRENTLY COMPLAINING OF SEVERE ANXIETY, TREMBLING IN UPPER AND LOWER EXTREMITIES, FIDGETING, FEELING SWEATY, SHE SCORED 14 ON ETOH WITHDRAWAL ASSESSMENT, SHE ONLY HAD ATIVAN IV FOR THE PROTOCOL BUT MED INSTRUCTION SAID TO ONLY GIVE IF PATIENT CANNOT TAKE PO MEDS, REACHED OUT TO Evgeny BELTRAN, OBSERVATION NURSE RECEIVED ONE TIME DOSE OF DIAZEPAM 5 MG PO. UPDATED PATIENT ON OBSERVATION NURSE RESPONSE. PATIENT CARE ON GOING.
[2025-01-03] MEDS: diazePAM 5 MG TAB PO ONE (11:36)
--- NOTE | 2025-01-03 16:07 | PN ---
[facility] PROGRESS NOTE Date Patient Seen: Jan 03, 2025 Time of Visit: 16:04 Supervising Physician: GUNNER BABCOCK Primary Care Physician: Dr Rachna Martinez Outpatient Specialists: [ ] Inpatient Consults: [place] [facility] PROBLEM LIST: Acute Intractable Abdominal pain with Melena , hx of Esophageal varices impro tracey s/p EGD - no active bleeding, no varices. + stenosis -traversed . Liver Cirrhosis , MELD score 14, <2% Acute Alcoholic Withdrawal , CIWA of 6 Acute Left Sided Pyelonephritis Chronic Alcoholism in relapse Acute Kidney Failure ,resolved Hypertension, POA DM type 2, on Tresiba History of gastritis, pancreatitis, rheumatoid arthritis, psoriasis and eczema INTERVAL HISTORY: Patient was seen and examined by me at bedside, No further melanotic stool . Her hg hs remained stable She continues with intermittent bouts of anxiety/ tremors. No headaches or hallucinations . Continues on Librium ,gradually eing weaned. Electrolytes are derrannged and continues to require replacement. Appetite slim , c/o of abdominal pain post prandial , Of note she was status post cholecystectomy. But it was being treated for pyelonephritis at this time. Gi has been consulted given her melena and liver cirrhosis hx , she is s/p EGD - findings reveal Gastritis -biopsied , intrinsic moderate stenosis noted that was able to be traversed. HG at 10.6 ( downtrending was at 12.1 on admission) continues on IV antibiotics. REVIEW OF SYSTEMS: 12 point ROS reviewed with patient. Pertinent positives mentioned above. Otherwise negative. PHYSICAL EXAM: GENERAL: alert, weak, awake oriented x 3,anxious affect HEENT: EOMI, Sclera non icteric, moist mucosa NECK: Supple, no JVD, trachea midline LUNGS: Clear breath sounds bilaterally. No wheezes HEART: Regular rate and rhythm. Normal S1 and S2, without murmurs ABD: Diffuse abdominal tenderness on palpation EXT: No clubbing cyanosis or edema,tremor in bilateral extremities NEURO: Alert and oriented to person, follows commands Vital Signs (last 8hr) Date Time Temp Pulse Resp B/P (MAP) Pulse Ox O2 Delivery O2 Flow Rate FiO2 01/03/25 12:00 98.2 85 19 92/66 98 Room Air 0.0 01/03/25 09:49 99 Room Air* 0 21 LABS: Hematology Labs: Test 01/03/25 05:51 01/02/25 04:52 Range/Units White Blood Count 4.9 4.8-10.8 K/uL Red Blood Count 3.47 L 4.00-5.50 MIL/uL Hemoglobin 10.6 L 12.0-16.0 g/dL Hematocrit 31.9 L 36-48 % Mean Corpuscular Volume 91.9 79-99 fL Mean Corpuscular Hemoglobin 30.5 27.0-33.0 pg Mean Corpuscular Hemoglobin Concent 33.2 32.0-36.0 g/dL Red Cell Distribution Width 15.6 H 11.0-15.5 % Platelet Count 171 130-400 K/uL Mean Platelet Volume 10.1 7.5-10.5 fL Immature Granulocyte % (Auto) 0.4 0-1 % Neutrophils (%) (Auto) 45.2 40.0-77.0 % Lymphocytes (%) (Auto) 36.3 21.0-51.0 % Monocytes (%) (Auto) 15.5 H 3.0-13.0 % Eosinophils (%) (Auto) 2.2 0.0-8.0 % Basophils (%) (Auto) 0.4 0.0-5.0 % Neutrophils # (Auto) 2.2 1.8-7.7 K/uL Lymphocytes # (Auto) 1.8 1.0-4.8 K/uL Monocytes # (Auto) 0.8 0.1-1.0 K/uL Eosinophils # (Auto) 0.11 0.00-0.70 K/uL Basophils # (Auto) 0.02 0.00-0.20 K/uL Absolute Immature Granulocyte (auto 0.02 0-1 K/uL Nucleated Red Blood Cells 0.0 0.0-0.19 % White Cell Morphology Comment See comments Chemistry Labs: Test 01/03/25 11:13 01/03/25 05:51 01/02/25 16:54 01/02/25 15:35 Range/Units Whole Blood Glucose 347 H 70-110 MG/DL Sodium Level 132 L 136-145 mmol/L Potassium Level 4.2 3.5-5.1 mmol/L Chloride Level 100 L 101-111 mmol/L Carbon Dioxide Level 26 21-32 mmol/L Blood Urea Nitrogen 11 7-18 mg/dL Creatinine 0.9 0.5-1.0 mg/dL Glomerular Filtration Rate Calc 78 >90 mL/min Random Glucose 230 H 70-105 mg/dL Total Calcium 8.7 8.5-10.1 mg/dL Magnesium Level 1.10 L 1.80-2.40 mg/dL Total Bilirubin 0.6 0.2-1.0 mg/dL Aspartate Amino Transf (AST/SGOT) 115 H 10-37 U/L Alanine Aminotransferase (ALT/SGPT) 97 H 12-78 U/L Alkaline Phosphatase 75 50-136 U/L Total Protein 6.2 6.0-8.3 g/dL Albumin 2.9 L 3.5-5.0 g/dL Whole Blood Ketones Quantitative 0.4 0.0-0.6 mmol/L Bedside Glucose Comment Notified Nurse DIAGNOSTICS / RADIOLOGY RESULTS: [ ] PLAN NEURO: Minimize central acting medications as possible. Maintain fall precautions, adequate lighting during the day WEAN DOWN LIBRIUM PRN ATIVAN FOR CIWA GREATER THAN 8 PULMONARY: Supplemental 02 as needed. Maintain aspiration precautions at all times CARDIOVASCULAR: Follow hemodynamics. Vital signs per facility protocol GI & NUTRITION: Continue with nutritional support. Continue stool softeners and laxatives as needed. gi soft diet will follow up w GI outpatient Protonix BID IV to be changed to po upon dc KIDNEYS & ELECTROLYTES: Strict monitoring of intake, output and overall fluid balance. Avoid nephrotoxic medications to the extent possible. Medications to be dosed according to renal function. Monitor electrolytes and replace as needed Continue rocephin for pyelonephritis total 10 days of treatment ENDOCRINE: Maintain blood glucose between 100-180 at all times. Hypoglycemia protocol in place INFECTIOUS DISEASE: Trend temperature, WBC and procalcitonin level Follow cultures, deescalate antibiotics as soon as possible. Panculture if new onset fever ONCOLOGY/HEMATOLOGY/COAGULATION: Monitor for s/s of bleeding Monitor hemoglobin, coagulation studies as needed SKIN: Pressure ulcer prevention per facility protocol Specialty mattress ORTHO/REHAB: Continue PT/OT Prophylaxis: Continue GI and DVT prophylaxis Code Status: Full Resuscitation Disposition: TBD Other: Total patient care time exceeds 35 minutes excluding all procedures. LILLI BELTRAN Jan 03, 2025 16:07
[2025-01-04] VITALS (8 sets, daily range): BP systolic 95–123; BP diastolic 60–75; PULSE 69–87; RESP 16–19; TEMP 97.9–98.6; O2SAT 98
[2025-01-04] MEDS: acetaMINOPHEN 500 MG TABLET PO PRN (12:36)
[2025-01-04] MEDS: diazePAM 2 MG TAB PO PRN (12:36)
[2025-01-04] MEDS: traMADol HCL 50 MG TABLET PO SCH (16:10)
--- NOTE | 2025-01-04 17:03 | PN ---
[facility] PROGRESS NOTE Date Patient Seen: Jan 04, 2025 Time of Visit: 17:01 Supervising Physician: SADIQ MARTINO Primary Care Physician: Dr Rachna Martinez Outpatient Specialists: [ ] Inpatient Consults: [place] [facility] PROBLEM LIST: Acute Intractable Abdominal pain with Melena , hx of Esophageal varices improv ed s/p EGD - no active bleeding, no varices. + stenosis -traversed . Liver Cirrhosis , MELD score 14, <2% Acute Alcoholic Withdrawal , CIWA of 4 Acute Left Sided Pyelonephritis Chronic Alcoholism in relapse Acute Kidney Failure ,resolved Hypertension, POA DM type 2, on Tresiba History of gastritis, pancreatitis, rheumatoid arthritis, psoriasis and eczema INTERVAL HISTORY: Patient was seen and examined by me at bedside, No further melanotic stool . Her hg hs remained stable She continues with intermittent bouts of anxiety/ tremors. No headaches or hallucinations . Continues on Librium ,gradually being weaned. Electrolytes are deranged and continues to require replacement. Appetite slim , c/o of abdominal pain post prandial , Of note she was status post cholecystectomy. But it was being treated for pyelonephritis at this time. She is tolerating Ensure shakes Gi has been consulted given her melena and liver cirrhosis hx , she is s/p EGD - findings reveal Gastritis -biopsied , intrinsic moderate stenosis noted that was able to be traversed. HG at 10.6 ( downtrending was at 12.1 on admission) -pending labs for today. continues on IV antibiotics. REVIEW OF SYSTEMS: 12 point ROS reviewed with patient. Pertinent positives mentioned above. Otherwise negative. PHYSICAL EXAM: GENERAL: alert, weak, awake oriented x 3,calm during my eval HEENT: EOMI, Sclera non icteric, moist mucosa NECK: Supple, no JVD, trachea midline LUNGS: Clear breath sounds bilaterally. No wheezes HEART: Regular rate and rhythm. Normal S1 and S2, without murmurs ABD: Diffuse abdominal tenderness on palpation EXT: No clubbing cyanosis or edema NEURO: Alert and oriented to person, follows commands Vital Signs (last 8hr) Date Time Temp Pulse Resp B/P (MAP) Pulse Ox O2 Delivery O2 Flow Rate FiO2 01/04/25 12:00 98.2 82 19 98/72 95 Room Air LABS: Hematology Labs: Test 01/03/25 05:51 Range/Units White Blood Count 4.9 4.8-10.8 K/uL Red Blood Count 3.47 L 4.00-5.50 MIL/uL Hemoglobin 10.6 L 12.0-16.0 g/dL Hematocrit 31.9 L 36-48 % Mean Corpuscular Volume 91.9 79-99 fL Mean Corpuscular Hemoglobin 30.5 27.0-33.0 pg Mean Corpuscular Hemoglobin Concent 33.2 32.0-36.0 g/dL Red Cell Distribution Width 15.6 H 11.0-15.5 % Platelet Count 171 130-400 K/uL Mean Platelet Volume 10.1 7.5-10.5 fL Immature Granulocyte % (Auto) 0.4 0-1 % Neutrophils (%) (Auto) 45.2 40.0-77.0 % Lymphocytes (%) (Auto) 36.3 21.0-51.0 % Monocytes (%) (Auto) 15.5 H 3.0-13.0 % Eosinophils (%) (Auto) 2.2 0.0-8.0 % Basophils (%) (Auto) 0.4 0.0-5.0 % Neutrophils # (Auto) 2.2 1.8-7.7 K/uL Lymphocytes # (Auto) 1.8 1.0-4.8 K/uL Monocytes # (Auto) 0.8 0.1-1.0 K/uL Eosinophils # (Auto) 0.11 0.00-0.70 K/uL Basophils # (Auto) 0.02 0.00-0.20 K/uL Absolute Immature Granulocyte (auto 0.02 0-1 K/uL Nucleated Red Blood Cells 0.0 0.0-0.19 % Chemistry Labs: Test 01/04/25 16:13 01/03/25 05:51 Range/Units Whole Blood Glucose 182 H 70-110 MG/DL Sodium Level 132 L 136-145 mmol/L Potassium Level 4.2 3.5-5.1 mmol/L Chloride Level 100 L 101-111 mmol/L Carbon Dioxide Level 26 21-32 mmol/L Blood Urea Nitrogen 11 7-18 mg/dL Creatinine 0.9 0.5-1.0 mg/dL Glomerular Filtration Rate Calc 78 >90 mL/min Random Glucose 230 H 70-105 mg/dL Total Calcium 8.7 8.5-10.1 mg/dL Magnesium Level 1.10 L 1.80-2.40 mg/dL Total Bilirubin 0.6 0.2-1.0 mg/dL Aspartate Amino Transf (AST/SGOT) 115 H 10-37 U/L Alanine Aminotransferase (ALT/SGPT) 97 H 12-78 U/L Alkaline Phosphatase 75 50-136 U/L Total Protein 6.2 6.0-8.3 g/dL Albumin 2.9 L 3.5-5.0 g/dL DIAGNOSTICS / RADIOLOGY RESULTS: [ ] PLAN NEURO: Minimize central acting medications as possible. Maintain fall precautions, adequate lighting during the day WEAN DOWN LIBRIUM PRN ATIVAN FOR CIWA GREATER THAN 8 PULMONARY: Supplemental 02 as needed. Maintain aspiration precautions at all times CARDIOVASCULAR: Follow hemodynamics. Vital signs per facility protocol GI & NUTRITION: Continue with nutritional support. Continue stool softeners and laxatives as needed. gi soft diet will follow up w GI outpatient Protonix BID IV to be changed to po upon dc KIDNEYS & ELECTROLYTES: Strict monitoring of intake, output and overall fluid balance. Avoid nephrotoxic medications to the extent possible. Medications to be dosed according to renal function. Monitor electrolytes and replace as needed Continue rocephin for pyelonephritis total 10 days of treatment ENDOCRINE: Maintain blood glucose between 100-180 at all times. Hypoglycemia protocol in place INFECTIOUS DISEASE: Trend temperature, WBC and procalcitonin level Follow cultures, deescalate antibiotics as soon as possible. Panculture if new onset fever ONCOLOGY/HEMATOLOGY/COAGULATION: Monitor for s/s of bleeding Monitor hemoglobin, coagulation studies as needed SKIN: Pressure ulcer prevention per facility protocol Specialty mattress ORTHO/REHAB: Continue PT/OT Prophylaxis: Continue GI and DVT prophylaxis Code Status: Full Resuscitation Disposition: dc in next 24 hours Other: Total patient care time exceeds 35 minutes excluding all procedures. LILLI BELTRAN Jan 04, 2025 17:03
[2025-01-04] MEDS: traMADol HCL 50 MG TABLET PO PRN (19:52)
[2025-01-05 00:46] VITALS: BP 90/61; PULSE 69; RESP 19; TEMP 97.4
[2025-01-05] MEDS: morPHINE 2 MG SYG IVP PRN (01:39)
[2025-01-05 04:09] VITALS: BP 101/69; PULSE 64; RESP 18; TEMP 97.4
[2025-01-05 06:22] LABS: BASOPHILS # (AUTO) 0.03 K/uL (0.00-0.20); BASOPHILS % (AUTO) 0.6 % (0.0-5.0); EOSINOPHILS # (AUTO) 0.13 K/uL (0.00-0.70); EOSINOPHILS % (AUTO) 2.8 % (0.0-8.0); HEMATOCRIT 33.5 % (36-48); IMMATURE GRANULOCYTE ABSOLUTE 0.03 K/uL (0-1); LYMPHOCYTES % (AUTO) 43.8 % (21.0-51.0); MEAN CORPUSCULAR HEMOGLOBIN 30.2 pg (27.0-33.0); MEAN CORPUSCULAR HGB CONC 33.1 g/dL (32.0-36.0); MEAN CORPUSCULAR VOLUME 91.3 fL (79-99); MONOCYTES # (AUTO) 0.8 K/uL (0.1-1.0); MONOCYTES % (AUTO) 16.4 % (3.0-13.0); NEUTROPHILS # (AUTO) 1.7 K/uL (1.8-7.7); NEUTROPHILS % (AUTO) 35.8 % (40.0-77.0); PLATELET COUNT (AUTO) 214 K/uL (130-400); RED BLOOD CELL COUNT(AUTO) 3.67 MIL/uL (4.00-5.50); RED CELL DISTRIBUTION WIDTH 15.6 % (11.0-15.5); WHITE BLOOD COUNT (AUTO) 4.6 K/uL (4.8-10.8)
[2025-01-05 06:45] LABS: BILIRUBIN,TOTAL 0.3 mg/dL (0.2-1.0); CREATININE 0.9 mg/dL (0.5-1.0); MAGNESIUM 1.4 mg/dL (1.80-2.40); POTASSIUM 4.3 mmol/L (3.5-5.1); THYROID STIMULATING HORMONE 0.95 uIU/mL (0.36-3.74); TOTAL PROTEIN, SERUM 6.4 g/dL (6.0-8.3)
[2025-01-05 08:00] VITALS: BP 99/66; PULSE 84; RESP 20; TEMP 98.1
[2025-01-05 08:30] VITALS: O2SAT 98
--- NOTE | 2025-01-05 09:02 | PN ---
[facility] PROGRESS NOTE LATE ENTRY Date Patient Seen: Jan 02, 2025 Time of Visit: 08:59 Supervising Physician: DAMIR VAUGHN Primary Care Physician: Dr Rachna Martinez Outpatient Specialists: [ ] Inpatient Consults: [place] [facility] PROBLEM LIST: Acute Intractable Abdominal pain with Melena , hx of Esophageal varices improved s/p EGD - no active bleeding, no varices. + stenosis -traversed . Liver Cirrhosis , MELD score 14, <2% Acute Alcoholic Withdrawal , CIWA of 4 Acute Left Sided Pyelonephritis Chronic Alcoholism in relapse Acute Kidney Failure ,resolved Hypertension, POA DM type 2, on Tresiba History of gastritis, pancreatitis, rheumatoid arthritis, psoriasis and eczema INTERVAL HISTORY: Patient was seen and examined by me at bedside, No further melanotic stool . Her hg hs remained stable . Gi has been consulted given her melena and liver cirrhosis hx , she is s/p EGD - findings reveal Gastritis -biopsied , intrinsic moderate stenosis noted that was able to be traversed. Continues with electrolyte derrangements. . She is not tolerating po, contineus with intermittent emesis /nausea and post prandial abdominal pain. ABd CT revealing Left perinephric fat stranding consistent with pyelonephritis. She continues to endorse flank pain. continues on IV antibiotics. Ciwa score improved now to 6 , continues on librium which will be weaned down. She continues to exporess concern for a mass to right side of neck advised CT soft tissue neck and US are normal . No masses identified. REVIEW OF SYSTEMS: 12 point ROS reviewed with patient. Pertinent positives mentioned above. Otherwise negative. PHYSICAL EXAM: GENERAL: alert, weak, awake oriented x 3,calm during my eval HEENT: EOMI, Sclera non icteric, moist mucosa NECK: Supple, no JVD, trachea midline LUNGS: Clear breath sounds bilaterally. No wheezes HEART: Regular rate and rhythm. Normal S1 and S2, without murmurs ABD: Diffuse abdominal tenderness on palpation EXT: No clubbing cyanosis or edema NEURO: Alert and oriented to person, follows commands Vital Signs (last 8hr) Date Time Temp Pulse Resp B/P (MAP) Pulse Ox O2 Delivery O2 Flow Rate FiO2 01/05/25 04:09 97.3 64 18 101/69 99 Room Air LABS: Hematology Labs: Test 01/05/25 06:07 Range/Units White Blood Count 4.6 L 4.8-10.8 K/uL Red Blood Count 3.67 L 4.00-5.50 MIL/uL Hemoglobin 11.1 L 12.0-16.0 g/dL Hematocrit 33.5 L 36-48 % Mean Corpuscular Volume 91.3 79-99 fL Mean Corpuscular Hemoglobin 30.2 27.0-33.0 pg Mean Corpuscular Hemoglobin Concent 33.1 32.0-36.0 g/dL Red Cell Distribution Width 15.6 H 11.0-15.5 % Platelet Count 214 # 130-400 K/uL Mean Platelet Volume 10.6 H 7.5-10.5 fL Immature Granulocyte % (Auto) 0.6 0-1 % Neutrophils (%) (Auto) 35.8 L 40.0-77.0 % Lymphocytes (%) (Auto) 43.8 21.0-51.0 % Monocytes (%) (Auto) 16.4 H 3.0-13.0 % Eosinophils (%) (Auto) 2.8 0.0-8.0 % Basophils (%) (Auto) 0.6 0.0-5.0 % Neutrophils # (Auto) 1.7 L 1.8-7.7 K/uL Lymphocytes # (Auto) 2.0 1.0-4.8 K/uL Monocytes # (Auto) 0.8 0.1-1.0 K/uL Eosinophils # (Auto) 0.13 0.00-0.70 K/uL Basophils # (Auto) 0.03 0.00-0.20 K/uL Absolute Immature Granulocyte (auto 0.03 0-1 K/uL Nucleated Red Blood Cells 0.0 0.0-0.19 % Chemistry Labs: Test 01/05/25 06:07 01/05/25 05:35 Range/Units Sodium Level 133 L 136-145 mmol/L Potassium Level 4.3 3.5-5.1 mmol/L Chloride Level 100 L 101-111 mmol/L Carbon Dioxide Level 28 21-32 mmol/L Blood Urea Nitrogen 10 7-18 mg/dL Creatinine 0.9 0.5-1.0 mg/dL Glomerular Filtration Rate Calc 78 >90 mL/min Random Glucose 220 H 70-105 mg/dL Total Calcium 9.6 8.5-10.1 mg/dL Magnesium Level 1.40 L 1.80-2.40 mg/dL Total Bilirubin 0.3 0.2-1.0 mg/dL Aspartate Amino Transf (AST/SGOT) 143 H 10-37 U/L Alanine Aminotransferase (ALT/SGPT) 136 H 12-78 U/L Alkaline Phosphatase 75 50-136 U/L Total Protein 6.4 6.0-8.3 g/dL Albumin 3.0 L 3.5-5.0 g/dL Thyroid Stimulating Hormone (TSH) 0.95 0.36-3.74 uIU/mL Whole Blood Glucose 195 H 70-110 MG/DL DIAGNOSTICS / RADIOLOGY RESULTS: [ ] PLAN NEURO: Minimize central acting medications as possible. Maintain fall precautions, adequate lighting during the day WEAN DOWN LIBRIUM PRN ATIVAN FOR CIWA GREATER THAN 8 PULMONARY: Supplemental 02 as needed. Maintain aspiration precautions at all times CARDIOVASCULAR: Follow hemodynamics. Vital signs per facility protocol GI & NUTRITION: Continue with nutritional support. Continue stool softeners and laxatives as needed. gi soft diet will follow up w GI outpatient Protonix BID IV to be changed to po upon dc KIDNEYS & ELECTROLYTES: Strict monitoring of intake, output and overall fluid balance. Avoid nephrotoxic medications to the extent possible. Medications to be dosed according to renal function. Monitor electrolytes and replace as needed Continue rocephin for pyelonephritis total 10 days of treatment ENDOCRINE: Maintain blood glucose between 100-180 at all times. Hypoglycemia protocol in place INFECTIOUS DISEASE: Trend temperature, WBC and procalcitonin level Follow cultures, deescalate antibiotics as soon as possible. Panculture if new onset fever ONCOLOGY/HEMATOLOGY/COAGULATION: Monitor for s/s of bleeding Monitor hemoglobin, coagulation studies as needed SKIN: Pressure ulcer prevention per facility protocol Specialty mattress ORTHO/REHAB: Continue PT/OT Prophylaxis: Continue GI and DVT prophylaxis Code Status: Full Resuscitation Disposition: dc in next 24 hours Other: Total patient care time exceeds 35 minutes excluding all procedures. LILLI BELTRAN Jan 05, 2025 09:02
--- NOTE | 2025-01-05 09:38 | PN ---
GASTROENTEROLOGY PROGRESS NOTE Date of Visit: Jan 05, 2025 Time of Visit: 09:38 Events / Notes: No acute events overnight. Patient underwent EGD revealing esophageal stenosis there was a benign-appearing and hiatal hernia. Review of Systems: CONSTITUTIONAL: No malaise or change in sensation of wellbeing. ENMT: No rhinorrhea, otorrhea, sinus pain, ear ache. CARDIOVASCULAR: No angina, palpitations, orthopnea or paroxysmal dyspnea. RESPIRATORY: No SOB. GASTROINTESTINAL: No abdominal pain, nausea, vomiting, diarrhea, hematemesis, melena or change in the patient's habitual bowel movements consistency/number. GENITOURINARY: No dysuria, hematuria or change in bladder continence. MUSCULOSKELETAL: No new muscle pain or decrease in muscular strength. No new joint swelling, redness or tenderness. SKIN: No new rash. Physical Exam: GEN: Awake, alert, oriented in person, time and place, and in no acute distress. HEENT: No sinus tenderness. Tympanic membranes were not examined. No rhinorrhea. Oral pharyngeal mucosa is pink, moist and within normal limits. Neck is supple with no cervical lymphadenopathy, thyromegaly or JVD. CHEST: Inspection, palpation and percussion of the chest were unremarkable. Lung auscultation revealed normal breath sounds bilaterally. CARDIAC: PMI is within normal limits. Heart sounds are regular. Normal S1, S2. No gallop or murmur. ABD: Soft, non-tender and not distended. No peritoneal signs on palpation. No organomegaly. Normal bowel sounds. EXT: No cyanosis or clubbing. No edema. SKIN: Intact. No rashes. JOINTS: No evidence of synovitis or acute arthritis. NEURO: Alert and oriented to name, place and person. Cranial nerve examination is unremarkable. No focal motor deficits. Normal speech. Gait is normal. Strength is normal. Vital Signs (last 8hr) Date Time Temp Pulse Resp B/P (MAP) Pulse Ox O2 Delivery O2 Flow Rate FiO2 01/05/25 08:00 98.1 84 20 99/66 98 Room Air 01/05/25 04:09 97.3 64 18 101/69 99 Room Air Laboratory: [ ] Laboratory: Test 01/05/25 06:07 01/05/25 05:35 Range/Units White Blood Count 4.6 L 4.8-10.8 K/uL Red Blood Count 3.67 L 4.00-5.50 MIL/uL Hemoglobin 11.1 L 12.0-16.0 g/dL Hematocrit 33.5 L 36-48 % Mean Corpuscular Volume 91.3 79-99 fL Mean Corpuscular Hemoglobin 30.2 27.0-33.0 pg Mean Corpuscular Hemoglobin Concent 33.1 32.0-36.0 g/dL Red Cell Distribution Width 15.6 H 11.0-15.5 % Platelet Count 214 # 130-400 K/uL Mean Platelet Volume 10.6 H 7.5-10.5 fL Immature Granulocyte % (Auto) 0.6 0-1 % Neutrophils (%) (Auto) 35.8 L 40.0-77.0 % Lymphocytes (%) (Auto) 43.8 21.0-51.0 % Monocytes (%) (Auto) 16.4 H 3.0-13.0 % Eosinophils (%) (Auto) 2.8 0.0-8.0 % Basophils (%) (Auto) 0.6 0.0-5.0 % Neutrophils # (Auto) 1.7 L 1.8-7.7 K/uL Lymphocytes # (Auto) 2.0 1.0-4.8 K/uL Monocytes # (Auto) 0.8 0.1-1.0 K/uL Eosinophils # (Auto) 0.13 0.00-0.70 K/uL Basophils # (Auto) 0.03 0.00-0.20 K/uL Absolute Immature Granulocyte (auto 0.03 0-1 K/uL Nucleated Red Blood Cells 0.0 0.0-0.19 % Sodium Level 133 L 136-145 mmol/L Potassium Level 4.3 3.5-5.1 mmol/L Chloride Level 100 L 101-111 mmol/L Carbon Dioxide Level 28 21-32 mmol/L Blood Urea Nitrogen 10 7-18 mg/dL Creatinine 0.9 0.5-1.0 mg/dL Glomerular Filtration Rate Calc 78 >90 mL/min Random Glucose 220 H 70-105 mg/dL Total Calcium 9.6 8.5-10.1 mg/dL Magnesium Level 1.40 L 1.80-2.40 mg/dL Total Bilirubin 0.3 0.2-1.0 mg/dL Aspartate Amino Transf (AST/SGOT) 143 H 10-37 U/L Alanine Aminotransferase (ALT/SGPT) 136 H 12-78 U/L Alkaline Phosphatase 75 50-136 U/L Total Protein 6.4 6.0-8.3 g/dL Albumin 3.0 L 3.5-5.0 g/dL Thyroid Stimulating Hormone (TSH) 0.95 0.36-3.74 uIU/mL Whole Blood Glucose 195 H 70-110 MG/DL Current Medications Medications (Trade) Dose Ordered Sig/Fidelina Route PRN Reason Start Time Stop Time Status Last Admin Dose Admin Acetaminophen (TYLenol 325MG TAB) 650 mg Q6H PRN PO MILD PAIN (1-3) 12/29/24 15:00 01/28/25 14:59 Acetaminophen (TYLenol 500MG TAB) 500 mg Q6H PRN PO TEMP < 101.1 AND/OR HEADACHE 12/30/24 10:30 01/29/25 10:29 01/04/25 12:36 500 MG Acetaminophen/ Hydrocodone Bitart (NORco 5/325MG) 1 tab Q6H PRN PO MODERATE PAIN (4-6) 12/29/24 15:00 01/03/25 14:59 DC 01/01/25 20:06 1 TAB Benzocaine (Cepacol Sore Throat Lozenge) 1 each Q2H PRN MM SORE THROAT 12/29/24 15:00 01/28/25 14:59 Ceftriaxone Sodium (ROCEphine 1G INJ) 1 gm Q24H IVPB 12/30/24 15:30 12/30/24 16:49 DC 12/30/24 15:22 1 GM Ceftriaxone Sodium (Rocephin 2gm Inj) 2 gm Q24H IVPB 12/31/24 15:30 01/10/25 15:29 01/04/25 16:10 2 GM Chlordiazepoxide HCl (LIBrium 25 MG CAP) 25 mg BID PO 01/01/25 21:00 01/07/25 11:59 01/05/25 09:05 25 MG Chlordiazepoxide HCl (LIBrium 25 MG CAP) 25 mg Q2H PRN PO ALCOHOL WITHDRAWAL PROTOCOL 12/30/24 10:30 01/01/25 16:02 DC Chlordiazepoxide HCl (LIBrium 25 MG CAP) 25 mg Q8H PO 12/31/24 12:00 01/01/25 16:02 DC 01/01/25 03:25 25 MG Dextrose (D50w) 50 ml AD PRN IV HYPOGLYCEMIA PROTOCOL 12/30/24 15:00 01/29/25 14:59 Diazepam (VALium 2 mg Tab) 2 mg Q8H PRN PO ANXIETY 01/04/25 11:00 01/11/25 10:59 01/04/25 20:06 2 MG Diphenhydramine HCl (BENAdryl CAP) 25 mg Q4H PRN PO MILD ITCHING/RASH 12/29/24 15:00 01/28/25 14:59 Diphenhydramine HCl (BENAdryl INJ) 25 mg Q6H PRN IV SEVERE ITCHING/RASH 12/29/24 15:00 01/28/25 14:59 Docusate Sodium (COLace 100MG CAP) 100 mg BID PRN PO CONSTIPATION 12/29/24 15:00 01/28/25 14:59 Folic Acid (FOLic ACID 1 MG TABLET) 1 mg DAILY PO 12/30/24 09:00 01/29/25 08:59 01/05/25 09:06 1 MG Glucagon (Glucagon 1mg Kit) 1 mg AD PRN IM HYPOGLYCEMIA PROTOCOL 12/30/24 15:00 01/29/25 14:59 Guaifenesin (RobiTUSSin SUGAR-FREE 100 MG/ 5 ML UDCUP) 200 mg Q4H PRN PO COUGH 12/29/24 15:00 01/28/25 14:59 Insulin Glargine (LANtus 100 UNITS/ML 10 ML VIAL) 20 units AM SQ 01/03/25 09:00 02/02/25 08:59 01/05/25 09:22 20 UNITS Insulin Human Regular (humuLIN R 100 UNIT/ML 3ML) INSULIN SLIDING SCAL... ACHS SQ 01/02/25 16:30 02/01/25 16:29 01/05/25 06:01 4 UNIT Lactulose (Constulose 20gm/ 30ml Udcup) 20 gm BID PRN PO CONSTIPATION 12/29/24 15:00 01/28/25 14:59 12/30/24 20:06 20 GM Loperamide HCl (Imodium) 2 mg Q6H PRN PO AFTER EACH LOOSE STOOL 12/29/24 15:00 01/28/25 14:59 Lorazepam (AtiVAN) 1 mg Q4H PRN IVP ALCOHOL WITHDRAWAL PROTOCOL 01/01/25 18:30 01/04/25 11:14 DC 01/02/25 06:07 1 MG Lorazepam (AtiVAN) 2 mg Q4H PRN IVP ALCOHOL WITHDRAWAL PROTOCOL 12/30/24 10:30 01/01/25 16:02 DC 01/01/25 10:03 2 MG Magnesium Oxide (Mag-Ox) 400 mg BID PO 01/01/25 21:00 01/31/25 20:59 01/05/25 09:05 400 MG Magnesium Sulfate 50 ml @ 0 mls/hr PROTOCOL PRN IV PROTOCO 12/30/24 15:00 01/29/25 14:59 01/05/25 09:04 25 MLS/HR Metoclopramide HCl (regLAN 10MG IV) 5 mg BID IVP 01/02/25 21:00 02/01/25 20:59 01/05/25 09:05 5 MG Morphine Sulfate (morPHINE 2MG SYG) 2 mg Q4H PRN IVP SEVERE PAIN (7-10) 12/29/24 22:30 01/04/25 01:29 DC 01/04/25 01:09 2 MG Morphine Sulfate (morPHINE 2MG SYG) 2 mg Q4H PRN IVP SEVERE PAIN (7-10) 01/04/25 14:30 01/11/25 14:29 01/05/25 01:39 2 MG Multivitamins Therapeutic (Multivitamin Tablet) 1 tab DAILY PO 12/30/24 09:00 01/29/25 08:59 01/05/25 09:05 1 TAB Multivitamins/ Minerals 10 ml/ Folic Acid 1 mg/ Sodium Chloride 1,010.2 ml @ 70 mls/hr DAILY IV 12/31/24 09:00 01/02/25 23:26 DC 01/02/25 11:27 70 MLS/HR Ondansetron HCl (zoFRAN 4MG INJ) 4 mg Q4H PRN IV NAUSEA 12/30/24 10:30 01/29/25 10:29 01/05/25 01:38 4 MG Pantoprazole Sodium (PROTonix 40MG INJ) 40 mg BID IVP 12/30/24 09:00 01/29/25 08:59 01/05/25 09:04 40 MG Pharmacy Profile Note (Pharmacy Communication) 1 each PROTOCOL PRN MISC ETOH Withdrawal Score changes 12/30/24 10:30 01/06/25 10:29 Polyethylene Glycol (MIRalax 3350 17 GM POWD.PACK) 17 gm DAILY PRN PO CONSTIPATION 12/29/24 15:00 01/28/25 14:59 Potassium Chloride 100 ml @ 100 mls/hr AD PRN IV POTASSIUM PROTOCOL 12/30/24 15:00 01/29/25 14:59 Potassium Chloride (K-Dur/Klor-Con 20meq) 20 meq AD PRN PO POTASSIUM PROTOCOL 12/30/24 15:00 01/29/25 14:59 12/31/24 20:04 20 MEQ Potassium Chloride (KCl 10% Elixir 20meq/15ml) 20 meq AD PRN PO POTASSIUM PROTOCOL 12/30/24 15:00 01/29/25 14:59 01/01/25 20:07 20 MEQ Thiamine HCl (Vitamin B-1) 100 mg DAILY IVP 12/30/24 09:00 12/30/24 14:57 DC 12/30/24 09:06 100 MG Thiamine HCl (Vitamin B-1) 300 mg DAILY IVP 12/31/24 09:00 01/30/25 08:59 01/05/25 09:23 300 MG Tramadol HCl (UltRAM) 25 mg Q8H PO 01/04/25 15:36 01/04/25 17:19 DC 01/04/25 16:10 25 MG Tramadol HCl (UltRAM) 25 mg Q8H PRN PO MODERATE PAIN (4-6) 01/04/25 17:30 01/09/25 15:35 01/05/25 06:04 25 MG Diagnostics / Radiology: [COPY/PASTE HERE IF NO REPORTS PLEASE DELETE SECTION] Assessment: Concern for GI bleed Acute blood loss anemia Esophageal varices Chronic pancreatitis Plan: Continue GI prophylaxis Advance diet as tolerated Avoid NSAIDs Antireflux measures Monitor H&H and transfuse as needed Call with questions, concerns or change in clinical status Patient to follow-up at clinic post discharge Thank you for this consult ROBERT WATTERS Jan 05, 2025 09:38
[2025-01-05] MEDS ORDERED: PANT40TA PO (11:36)
[2025-01-05] MEDS ORDERED: MAGN400T53 PO (11:36)
[2025-01-05] MEDS ORDERED: METO5 PO (11:36)
[2025-01-05] MEDS ORDERED: LEVO750T68 PO (11:36)
[2025-01-05] MEDS ORDERED: THIA100T91 PO (11:36)
[2025-01-05] MEDS ORDERED: FOLI1 PO (11:36)
[2025-01-05 12:00] VITALS: BP 114/77; PULSE 71; RESP 18; TEMP 97.8
[2025-01-05] MEDS ORDERED: HYDR-4030 PO (15:00)
[2025-01-05] MEDS ORDERED: ONDA22I PO (15:00)
--- NOTE | 2025-01-05 15:29 | NUR ---
DISCHARGE DISCHARGE ORDERS FOR PATIENT TO BE DISCHARGED HOME OBTAINED. DISCHARGE INSTRUCTIONS AND DOCUMENTATION GIVEN TO PATIENT AT BEDSIDE. [employer] PACKET GIVEN TO PATIENT FOR REFERENCE. PATIENT VOICED UNDERSTANDING. IV DISCONTINUED, CATHETER INTACT, NO S/S OF INFECTION NOTED. PATIENT TOLERATED WELL. BANDS REMOVED. PENDING TRANSPORTATION.
[2025-01-05 16:00] VITALS: BP 91/72; PULSE 77; RESP 18; TEMP 97.5
--- NOTE | 2025-01-05 16:45 | NUR ---
DISCHARGE PATIENT LEFT VIA WHEELCHAIR, ACCOMPANIED BY SIGNIFICANT OTHER. NO S/S OF DISTRESS NOTED.
--- NOTE | 2025-01-05 17:03 | DS ---
[facility] DISCHARGE SUMMARY Date Patient Seen: Jan 05, 2025 Time of Visit: 16:59 Supervising Physician: [SADIQ MARTINO MD Primary Care Physician: Dr Rachna Martinez Outpatient Specialists: [ ] Inpatient Consults: [place] [facility] PROBLEM LIST: Acute Intractable Abdominal pain with Melena , hx of Esophageal varices RESOLVED s/p EGD - no active bleeding, no varices. + stenosis -traversed . Liver Cirrhosis , MELD score 14, <2% ,STABLE Acute Alcoholic Withdrawal , CIWA of 4, RESOLVED Acute Left Sided Pyelonephritis Chronic Alcoholism in relapse ,RESOURCES PROVIDED Acute Kidney Failure ,resolved Hypertension, POA DM type 2, on Tresiba History of gastritis, pancreatitis, rheumatoid arthritis, psoriasis and eczema HOSPITAL COURSE: 49 year old female with past medical history of DM type 2, on Tresiba, gastritis, pancreatitis, hypertension, rheumatoid arthritis, psoriasis and eczema who presented to ED via EMS with complaint of worsening abdominal pain with associated intractable nausea and vomiting and found to have possible GI bleed, UTI, and acute abdomen. Patient was seen and examined in ED with no relatives present at bedside. Apparently patient has been having issues with abdominal pain three days ago and has some issues with black tarry stool concerning for possible GI bleed that got worse today prompting ER visit. In ED CBC was done and showed no acute infection or anemia, her CMP is s ignificant for creatinine level of 1.3, and potassium level of 3.5 and sodium level of 130. Her ABG did not reveal any acute acidosis, as well as her bicarb level was 25. UA is consistent with urinary tract infection with some ketonuria. Ct abdomen and pelvis revealing + pyelonephritis . Started on IV rocephin. URine cultures obtained . Patient replapsed in her alcoholism and Drank 1 pint of vodka a day, She began with withdrawal symptoms inpatient and as stared on CIWA protocol . Withdrawl complete and weaned off Librium . Patient Did undergo EGD - No varices noted Patients diet advanced and tolerated upon dc . Will be sent home with RX below . resources given for AAA . New Medications: Hydroxyzine Pamoate (Hydroxyzine Pamoate) 25 Mg Capsule 1 CAP PO TID for anxiety for 15 Days, #30 CAP 0 Refills Levofloxacin (Levaquin 750Mg Tabs) 750 Mg Tablet 1 TAB PO DAILY for 7 Days, #7 TAB 0 Refills Magnesium Oxide (Magnesium Oxide) 400 Mg Tablet 1 TAB PO BID for 30 Days, #60 TAB 0 Refills Metoclopramide HCl (Reglan) 5 Mg Tab 1 TAB PO TID for 30 Days, #90 TAB 0 Refills Ondansetron HCl (Zofran) 4 Mg/2 Ml Inj 4 MG PO Q8H for nausea for 3 Days, #9 TAB Pantoprazole Sodium (Protonix) 40 Mg Tablet.dr 1 TAB PO BID for 30 Days, #60 TAB 0 Refills Thiamine HCl (Vitamin B-1) 100 Mg Tablet 1 TAB PO DAILY for 30 Days, #30 TAB 0 Refills Folic Acid (Folvite) 1 Mg Tab 1 MG PO DAILY, #30 TAB Continued Medications: Lipase/Protease/Amylase (Creon 36,000 Units Capsule) 36K-114K Capsule. 1 EACH PO TID, CAP Tofacitinib Citrate (Xeljanz) 10 Mg Tablet 10 MG PO DAILY, TAB Discontinued Medications: Pantoprazole Sodium (Pantoprazole Sodium) 20 Mg Tablet.dr 20 MG PO HS, TAB Sertraline HCl (Sertraline HCl) 25 Mg Tablet 25 MG PO DAILY, TAB PHYSICAL EXAM: GENERAL: alert, weak, awake oriented x 3,calm during my eval HEENT: EOMI, Sclera non icteric, moist mucosa NECK: Supple, no JVD, trachea midline LUNGS: Clear breath sounds bilaterally. No wheezes HEART: Regular rate and rhythm. Normal S1 and S2, without murmurs ABD: soft , nontender, BS + , nondistended EXT: No clubbing cyanosis or edema NEURO: Alert and oriented to person, follows commands FOLLOW-UP: Follow-up with PCP in 2-3 days RECOMMENDATIONS: See Discharge Instructions This case was seen and discussed with my supervising physician. More than 30 minutes spent on discharge process, including evaluation of the patient, discussion with nursing staff, medication reconciliation and follow-up appointments LILLI BELTRAN Jan 05, 2025 17:03
--- NOTE | 2025-01-05 17:43 | NUR ---
Nutrition consult per protein supplement Reviewed labs, notes, and medications. Pt on 2L oxygen, acute alcoholic withdrawal, EGD 01/05/25, on GI soft + fruit smoothie w/ ensure AM and lunch, zofran, insulin, MVI, b-complex, Na 133(L), BG 333(H), A1C 8.7, Mg 1.40 (L), elevated AST and ALT per chart review. Wt via standing scale, liquid loose BM 01/05/25, no edema, well nourished, no wounds, 3600 ml balance 01/04/25 per nursing. Per research low vitamin D may contribute to insulin resistance. Pending lipid panel. Recommendations -Provide 75 gm cho + ensure max w/ fruit smoothies + HH diet -Monitor PO intake -Monitor BM -If no BM >3 days consider stool softener -Consider probiotics QD per diarrhea -Monitor electrolytes -Replenish electrolytes per protocol -Monitor wts -Reweigh as able -Order Vit D, vit b-12 labs to rule out deficiencies -Order lipid panel -Provide b-complex QD per acute alcoholic withdrawal -Order B-6 labs per Pt hx of EtoH -Provide vit. C 500 mg BID per Pt hx of smoking -Recommend Pt to follow up with PCP -Monitor goals of care RD to follow + available for consult per protocol Addendum: 01/05/25 at [address] Amended: Links added.
[2025-01-05 18:31] LABS: CHOLESTEROL 129 mg/dL (<200); HDL CHOLESTEROL 62 mg/dL (35-85); LDL DIRECT 61 mg/dL (0-99); TRIGLYCERIDES 73 mg/dL (30-200)
== END 2025-01-05 16:45 | disposition home or self-care (01) | DRG 378 ==
LOC: EDH 10:55 → OBSVTOIN 14:54 → EDHIP 14:54 → 3CH 12-30 02:03
PROVIDERS: ADMIT Internal Medicine Critical Care Medicine; ATTEND Internal Medicine Critical Care Medicine
PROC: 0DB68ZX Excision of Stomach, Via Natural or Artificial Opening Endoscopic, Diagnostic (ICD-10-PCS; principal; 2024-12-31)
DX: K29.71 Gastritis, unspecified, with bleeding (principal); D62 Acute posthemorrhagic anemia; F10.239 Alcohol dependence with withdrawal, unspecified; N10 Acute pyelonephritis; N17.9 Acute kidney failure, unspecified; K86.1 Other chronic pancreatitis; K21.9 Gastro-esophageal reflux disease without esophagitis; D64.9 Anemia, unspecified; K22.2 Esophageal obstruction; K74.60 Unspecified cirrhosis of liver; I10 Essential (primary) hypertension; M06.9 Rheumatoid arthritis, unspecified; E11.65 Type 2 diabetes mellitus with hyperglycemia; K44.9 Diaphragmatic hernia without obstruction or gangrene; F41.9 Anxiety disorder, unspecified; E87.6 Hypokalemia; Z90.710 Acquired absence of both cervix and uterus; Z90.49 Acquired absence of other specified parts of digestive tract; Z88.0 Allergy status to penicillin
CPT/HCPCS: 36415; 36600; 43239; 70490; 74176; 76536; 80048; 80053; 80061; 80076; 81001; 82010; 82140; 82270; 82607; 82803; 82948; 83036; 83690; 83735; 84132; 84145; 84439; 84443; 85014; 85018; 85025; 85610; 86850; 86900; 86901; 87046; 87086; 88305; 88312; 96365; 96375; 99291; A4606; G0378; J0696; J1171; J1815; J2060; J2270; J2405; J2470; J2704; J2765; J3411; J3475; J3490; J7030; A4215; A4222; A4223; A4620

== ENCOUNTER 2025-05-29 16:46 | Emergency (ER) | payer MEDICARE, MEDICAID ==
[~2025-05-29] VITALS: Ht 180.3 cm; Wt 85.7 kg
[~2025-05-29 16:46] MED LIST changes: -CELE-125 PO; +CHLO25CA5 PO; +DICL75TA5 PO; -ESCI-8 PO; +FLUO40CA49 PO; +FOLI0.8C PO; +GABA-529 PO; +HYDR-4030 PO; -HYDR200T75 PO; -INSU300I SQ; +LIPA1CAP18 PO; +LISI10TA24 PO; -MECO10005 PO; +METO5TAB2 PO; +PANT20TA18 PO; +SUCR1TAB2 PO; +TOFA11TA PO; +VITA1CAP85 PO
--- NOTE | 2025-05-29 16:57 | ERN ---
ED Note History of Present Illness Stated Complaint: ETOH WITHDRAW Chief Complaint: Withdrawl Time Seen by MD: 16:49 Dictation: PATIENT IS A 49-YEAR-OLD FEMALE COMING IN TODAY WITH COMPLAINTS OF NOT DRINKING SINCE THE 7TH OF THIS MONTH AND THEN SHE STARTED DRINKING THIS MORNING AT 11:00. SHE STATES SHE HAS HAD A PINT OF LIQUOR. SHE STATES SHE HAS A HISTORY OF PTSD. SHE DENIES ANY HISTORY OF SEIZURE DISORDER OR DTS. DENIES SUICIDAL OR HOMICIDAL IDEATION IN TRIAGE. Allergies: Coded Allergies: Penicillins (Verified Allergy, Unknown, 03/19/18) Home Meds Reported Medications Folic Acid (Folic Acid) 0.8 Mg Capsule, 0.8 MG PO AM, CAP 04/21/25 Vitamin B Complex (Vitamin B Complex) 1 Each Capsule, 1 CAP PO BID for 30 Days, #60 CAP 0 Refills 04/21/25 Metoclopramide HCl (Metoclopramide HCl) 5 Mg Tablet, 5 MG PO TID, TAB 04/21/25 Diclofenac Sodium (Diclofenac Sodium) 75 Mg Tablet.dr, 75 MG PO BID, TAB 04/21/25 Hydroxyzine Pamoate (Hydroxyzine Pamoate) 25 Mg Capsule, 25 MG PO TID, CAP 04/21/25 Gabapentin (Gabapentin) 100 Mg Capsule, 100 MG PO AM, CAP 25 Pantoprazole Sodium (Pantoprazole Sodium) 20 Mg Tablet.dr, 20 MG PO AM, TAB 04/21/25 Fluoxetine HCl (Fluoxetine HCl) 40 Mg Capsule, 1 CAP PO DAILY for 30 Days, #30 CAP 0 Refills 04/21/25 Sucralfate (Sucralfate) 1 Gram Tablet, 1 TAB PO TID for 30 Days, #90 TAB 0 Refi lls 04/21/25 Chlordiazepoxide HCl (Chlordiazepoxide HCl) 25 Mg Capsule, 25 MG PO AM, CAP 04/21/25 Lisinopril (Lisinopril) 10 Mg Tablet, 1 TAB PO DAILY for 30 Days, #30 TAB 0 Refills 04/21/25 Lipase/Protease/Amylase (Creon Dr 36,000 Units Capsule) 36K-114K Capsule.dr, 1 CAP PO TID for 30 Days, #90 CAP 0 Refills 04/21/25 Tofacitinib Citrate (Xeljanz Xr) 11 Mg Tab.er.24h, 11 MG PO ACBKFST, TAB 04/21/25 Gabapentin (Gabapentin) 100 Mg Capsule, 300 MG PO HS, CAP 03/05/25 Past Medical History Past Medical History: Anxiety, Depression, Diabetes-Type II, GERD, Liver Disease, Pancreatitis, Other Additional Past Medical Hx: GASTRITIS, E COLI, ESBL, RA, cirrhosis, PTSD Surgical History: Hysterectomy, Cholecystectomy Social History: ETOH History: Not Applicable RN Note Reviewed/Agreed w/PFSH: Yes Review of System Dictation CONSTITUTIONAL: NEGATIVE EXCEPT FOR HPI HEAD/FACE: NEGATIVE EXCEPT FOR HPI EENT: NEGATIVE EXCEPT FOR HPI RESPIRATORY: NEGATIVE EXCEPT FOR HPI GASTROINTESTINAL/ABDOMINAL: NEGATIVE EXCEPT FOR HPI GENITOURINARY: NEGATIVE EXCEPT FOR HPI MUSCULOSKELETAL: NEGATIVE EXCEPT FOR HPI INTEGUMENTARY: NEGATIVE EXCEPT FOR HPI NEUROLOGICAL/PSYCH: NEGATIVE EXCEPT FOR HPI ANXIETY/ETOH ABUSE HEMATOLOGIC/LYMPHATIC: NEGATIVE EXCEPT FOR HPI ALL SYSTEMS NEGATIVE, EXCEPT NOTED ABOVE. 13 POINT REVIEW OF SYSTEMS ASSESSED AND ALL NEGATIVE EXCEPT FOR ABOVE. Initial Vital Sign VS Vital Signs Date Time Temp Pulse Resp B/P (MAP) Pulse Ox O2 Delivery O2 Flow Rate FiO2 05/29/25 16:49 99.0 98 19 128/85 99 Room Air* 0 21 Physical Exam Dictation VITAL SIGNS REVIEWED GENERAL APPEARANCE: ALERT, ORIENTED X 3, MODERATE/ANXIOUS ACUTE DISTRESS, WELL DEVELOPED, NOURISHED. HEAD AND FACE: NON-TRAUMATIC. EYES: PERRL, PINK CONJUNCTIVAS, EYELID NO TRAUMA, ANTERIOR CHAMBER WITH ARCUS SE NILIS. EARS: PINNAS INTACT AND NO SIGNS OF TRAUMA OR ERYTHEMA EAR CANALS CLEAR AND NO DISCHARGE TM NO ERYTHEMA NOSE: NO DISCHARGE, NO BLEEDING. OROPHARYNX: MOUTH NORMAL, TONGUE PINK, PHARYNX CLEAR,NO ERYTHEMA, TONSILS NO EXUDATES, NO ABSCESSES NOTED, MUCOUS MEMBRANE MOIST NECK: SUPPLE, NON-TENDER, NO THYROMEGALY, NO MASSES, NO JVD, NO BRUITS BREAST:DEFERRED CHEST:NO TENDERNESS, NO CREPITUS, NO PARADOXICAL MOVEMENT, NO RETRACTIONS LUNGS:CLEAR, WELL-VENTILATED, SYMMETRIC, NO RALES, NO WHEEZING, NO RHONCHI, NO STRIDOR, GOOD BREATH SOUNDS BILATERALLY HEART: REGULAR RATE, REGULAR RHYTHM, NO MURMUR, NO GALLOPS VASCULAR: NO PERIPHERAL EDEMA, ABDOMEN: SOFT, POSITIVE BOWEL SOUNDS, NONDISTENDED, NO GUARDING, NONTENDER, NO REBOUND, NO MASSES NO HEPATOMEGALY, NO SPLENOMEGALY, NO DILLON'S SIGN, NO HERNIAS. RECTAL: DEFERRED GENITAL: DEFERRED NEUROLOGICAL: NORMAL SPEECH, MOTOR FUNCTION INTACT, SENSORY FUNCTION INTACT DENIES SI OR HI. ANXIOUS MUSCULOSKELETAL: NECK NONTENDER, FULL RANGE OF MOTION, BACK NONTENDER, FULL RANGE OF MOTION, EXTREMITIES: NONTENDER, FULL RANGE OF MOTION SKIN: COLOR PINK, DRY, NO TURGOR, NO RASH, NO LACERATIONS, NO ABRASIONS, NO CONTUSIONS. LYMPHATIC: DEFERRED Results (Laboratory/Radiology) Laboratory/Radiology Laboratory Tests Test 05/29/25 17:12 05/29/25 18:10 White Blood Count 8.9 K/uL (4.8-10.8) Red Blood Count 3.83 MIL/uL (4.00-5.50) L Hemoglobin 11.5 g/dL (12.0-16.0) L Hematocrit 35.6 % (36-48) L Mean Corpuscular Volume 93.0 fL (79-99) Mean Corpuscular Hemoglobin 30.0 pg (27.0-33.0) Mean Corpuscular Hemoglobin Concent 32.3 g/dL (32.0-36.0) Red Cell Distribution Width 14.6 % (11.0-15.5) Platelet Count 410 K/uL (130-400) H Mean Platelet Volume 8.8 fL (7.5-10.5) Immature Granulocyte % (Auto) 0.4 % (0-1) Neutrophils (%) (Auto) 63.9 % (40.0-77.0) Lymphocytes (%) (Auto) 29.5 % (21.0-51.0) Monocytes (%) (Auto) 5.6 % (3.0-13.0) Eosinophils (%) (Auto) 0.2 % (0.0-8.0) Basophils (%) (Auto) 0.4 % (0.0-5.0) Neutrophils # (Auto) 5.7 K/uL (1.8-7.7) Lymphocytes # (Auto) 2.6 K/uL (1.0-4.8) Monocytes # (Auto) 0.5 K/uL (0.1-1.0) Eosinophils # (Auto) 0.02 K/uL (0.00-0.70) Basophils # (Auto) 0.04 K/uL (0.00-0.20) Absolute Immature Granulocyte (auto 0.04 K/uL (0-1) Nucleated Red Blood Cells 0.0 % (0.0-0.19) Sodium Level 140 mmol/L (136-145) Potassium Level 4.1 mmol/L (3.5-5.1) Chloride Level 104 mmol/L (101-111) Carbon Dioxide Level 30 mmol/L (21-32) Blood Urea Nitrogen 13 mg/dL (7-18) Creatinine 1.1 mg/dL (0.5-1.0) H Glomerular Filtration Rate Calc 61 mL/min (>90) Random Glucose 104 mg/dL (70-105) Total Calcium 9.5 mg/dL (8.5-10.1) Total Creatine Kinase 111 U/L (21-232) # Lipase 10 U/L (16-77) L Salicylates Level < 2.8 mg/dL (2.8-20.0) L Acetaminophen Level < 1 mcg/mL (10-30) L Serum Alcohol 354 mg/dL (0-10) H Urine Color COLORLESS (YELLOW) Urine Appearance CLEAR (CLEAR) Urine pH 7.0 (5.0-8.0) Urine Specific [place] 1.004 (1.001-1.031) Urine Protein NEGATIVE mg/dL (NEGATIVE) Urine Glucose (UA) NEGATIVE mg/dL (NEGATIVE) Urine Ketones NEGATIVE mg/dL (NEGATIVE) Urine Occult Blood NEGATIVE (NEGATIVE) Urine Nitrate NEGATIVE (NEGATIVE) Urine Bilirubin NEGATIVE mg/dL (NEGATIVE) Urine Urobilinogen 0.2 mg/dL (0.2-1.0) Urine Leukocyte Esterase NEGATIVE Aniket/uL Urine Opiates Screen NEGATIVE (NEGATIVE) Urine Barbiturates Screen NEGATIVE (NEGATIVE) Urine Phencyclidine Screen NEGATIVE (NEGATIVE) Urine Amphetamines Screen NEGATIVE (NEGATIVE) Urine Benzodiazepines Screen POSITIVE (NEGATIVE) H Urine Cocaine Screen NEGATIVE (NEGATIVE) Urine Marijuana (THC) Screen NEGATIVE (NEGATIVE) RIGHT LOWER QUADRANT ULTRASOUND IS NEGATIVE FOR APPENDICITIS Labs Reviewed?: Yes ED Course ED Course Orders Procedure Category Date Status Time Drug Screen Urine LAB 05/29/25 Complete 16:53 Cbc With Differential LAB 05/29/25 Complete 16:53 Alcohol, Blood LAB 05/29/25 Complete 16:53 Salicylate LAB 05/29/25 Complete 16:53 Acetaminophen LAB 05/29/25 Complete 16:53 Urinalysis Profile LAB 05/29/25 Complete 16:53 12 Lead Ekg Tracing- EKG 05/29/25 Complete Technical 16:53 Creatine Kinase, Total LAB 05/29/25 Complete 16:53 Basic Metabolic Panel LAB 05/29/25 Complete 16:53 Lipase LAB 05/29/25 Complete 18:03 0.9%Nacl 1000ml (Ns PHA 05/29/25 Complete 1000ml) 18:30 Ketorolac PHA 05/29/25 Complete Tromethamine 30mg/Ml 19:00 Us Abd Limited/Abd US 05/29/25 Resulted Wall 19:37 Morphine 2mg Syg PHA 05/29/25 Complete (Morphine 2mg Syg) 20:00 Ondansetron 4mg Inj PHA 05/29/25 Complete (Zofran 4mg Inj) 20:00 Current Medications Medications (Trade) Dose Ordered Sig/Fidelina Route PRN Reason Start Time Stop Time Status Last Admin Dose Admin Ketorolac Tromethamine (toRADol) 30 mg ONCE ONCE IVP 05/29/25 19:00 05/29/25 19:01 DC 05/29/25 18:54 Morphine Sulfate (morPHINE 2MG SYG) 2 mg ONCE ONCE IVP 05/29/25 20:00 05/29/25 20:01 DC 05/29/25 19:46 Ondansetron HCl (zoFRAN 4MG INJ) 4 mg ONCE ONCE IVP 05/29/25 20:00 05/29/25 20:01 DC 05/29/25 19:46 Sodium Chloride 1,000 ml @ 0 mls/hr ONCE ONCE IV 05/29/25 18:30 05/29/25 18:31 DC 05/29/25 18:12 Vital Signs Date Time Temp Pulse Resp B/P (MAP) Pulse Ox O2 Delivery O2 Flow Rate FiO2 05/29/25 21:09 98.4 80 18 122/80 98 Room Air* 0 05/29/25 19:51 98.6 80 18 119/79 98 Room Air* 0 05/29/25 19:12 16 Room Air* 0 05/29/25 16:49 99.0 98 19 128/85 99 Room Air 0 05/29/25 16:49 99.0 98 19 128/85 99 Room Air* 0 1850/PATIENT COMPLAINING OF SUPRAPUBIC PAIN AND STATES IT IS MY PANCREATITIS. I ADVISED HER LIPASE IS 10 AND SHE IS NOT HAVING ANY ACTIVE PANCREATITIS AT THIS TIME. WE WILL FOLLOW TO GIVE HER TORADOL 30 MG IV PUSH.2124/ 2124/PATIENT IS A LONGER IN PAIN. STATES THAT SHE WISHES TO GO HOME IN HER BROTHER IS COMING TO PICK HER UP. SHE IS AWARE THAT SHE DOES NOT HAVE A ACUTE APPENDICITIS OR PANCREATITIS. NO URINARY TRACT INFECTION WE WILL HAVE PATIENT FOLLOW UP WITH HER DOCTOR IN 1-2 DAYS. Medical Decision Making MDM MDM: DIFFERENTIAL DIAGNOSIS: INTOXICATION/DRUG ABUSE/ELECTROLYTE IMBALANCE/DEHYDRATION/APPENDICITIS/DIVERTICULITIS/UTI RATIONALE: TESTS CONSIDERED AND ORDERED SECONDARY TO SHARED DECISION MAKING INCLUDE: LABS/ULTRASOUND PREVIOUS OUTSIDE RECORDS REVIEWED: OLD ER VISITS. RISK OF COMPLICATION AND/OR MORBIDITY OR MORTALITY OF PATIENT MANAGEMENT: NONE MEDICATIONS-PER MEDICATION RECONCILIATION NEED FOR HOSPITALIZATION: PATIENT DOES NOT MEET CRITERIA FOR HOSPITALIZATION. NO NEED FOR EMERGENCY MAJOR/MINOR SURGERY: NO THERE ARE NO SOCIAL CONCERNS WITH THIS PATIENT. PATIENT HAS A HISTORY OF ALCOHOL ABUSE NO SUICIDAL OR HOMICIDAL IDEATION AT THIS TIME. WE WILL BE DISC HARGED HOME TO HER BROTHER. PRESCRIPTION DRUG MANAGEMENT PRESCRIPTIONS WILL INCLUDE SYMPTOMATIC CARE PATIENT'S PRIOR EXTERNAL MEDICAL RECORDS FROM OTHER ER VISITS WERE REVIEWED BY ME INDICATED. PRIOR TESTING AND RESULTS FROM PREVIOUS VISITS WERE REVIEWED. PRIOR TESTS WERE TAKEN INTO ACCOUNT WITH MEDICAL DECISION MAKING AND RESOURCE UTILIZATION, INDEPENDENT HISTORIAN/HISTORIANS WERE USED TO OBTAIN COMPLETE MEDICAL HISTORY. I INDEPENDENTLY INTERPRETED THE TEST THAT WERE PERFORMED, RESULTS WERE REVIEWED BY ME AND CONSIDERED FINDINGS ON RADIOLOGY IF ORDERED. MEDICAL MANAGEMENT AND EXAMINATION INTERPRETATION DISCUSSIONS WERE HAD BY ME WITH OTHER QUALIFIED HEALTHCARE PROFESSIONALS INDICATED FOR THE PATIENT'S CARE. DX & DISP Disposition: Discharge Departure Impression: Primary Impression: Alcohol intoxication Additional Impressions: Alcohol abuse, Dehydration, Stage 3 chronic kidney disease Condition: Stable Additional Instructions: FOLLOW-UP WITH PRIMARY CARE PROVIDER IN 1 TO 2 DAYS. TAKE MEDICATIONS DIRECTED HERE IN THE EMERGENCY ROOM. OKAY TO CONTINUE HOME MEDICATIONS UNLESS OTHERWISE DISCUSSED DURING YOUR VISIT IN THE EMERGENCY ROOM TODAY. RETURN TO YOUR NEAREST EMERGENCY ROOM IF SYMPTOMS WORSEN OR IF THERE IS NO IMPROVEMENT. CALL 911 IF YOU NEED IMMEDIATE ASSISTANCE. TAKE TYLENOL OR MOTRIN [id number] NEEDED AND IF NO CONTRAINDICATIONS ARE PRESENT. INCREASE ORAL HYDRATION. A WOUND CULTURE OR URINE CULTURE WAS ORDERED HERE IN THE EMERGENCY ROOM DEPARTMENT PLEASE FOLLOW-UP WITH PRIMARY CARE PROVIDER AND ADVISE THEM TO GET REPEAT PORTS FROM OUR FACILITY. IF YOU HAD ANY CAIO WRAP/SPLINTS THAT WERE APPLIED HERE, PLEASE DO NOT REMOVE THEM UNTIL YOU SEE YOUR PRIMARY CARE OR SPECIALTY. STOP USING ALCOHOL. FOLLOW UP WITH YOUR PRIMARY CARE DOCTOR ON SUNDAY WITHOUT FAIL. Referrals: KERRY HUMPHREY MD (PCP) Time of Disposition: 21:28 I have reviewed the case, and I agree with, Diagnosis and Plan GONZALO ROMO NP May 29, 2025 16:57
--- NOTE | 2025-05-29 16:57 | NUR ---
BED REQUEST FOR PATIENT MADE TO CHARGE NURSE ANNELISE KIM AT THIS TIME.
--- NOTE | 2025-05-29 17:05 | NUR ---
PATIENT MOVED TO FAST TRACK WAITING AREA UNTIL BED IS AVAILABLE./TERE
[2025-05-29 17:18] LABS: IMMATURE GRANULOCYTE ABSOLUTE 0.04 K/uL (0-1); NUCLEATED RED BLOOD CELLS 0.0 % (0.0-0.19); PLATELET COUNT (AUTO) 410 K/uL (130-400); RED BLOOD CELL COUNT(AUTO) 3.83 MIL/uL (4.00-5.50); RED CELL DISTRIBUTION WIDTH 14.6 % (11.0-15.5); WHITE BLOOD COUNT (AUTO) 8.9 K/uL (4.8-10.8)
[2025-05-29 17:31] LABS: CREATININE 1.1 mg/dL (0.5-1.0); GLOMERULAR FILTR. RATE CALC 61 mL/min (>90); GLUCOSE,RANDOM 104 mg/dL (70-105); SODIUM SERUM 140 mmol/L (136-145); UREA NITROGEN, BLOOD 13 mg/dL (7-18)
[2025-05-29 17:37] LABS: ALCOHOL, BLOOD 354 mg/dL (0-10); CREATINE KINASE, TOTAL 111 U/L (21-232)
--- NOTE | 2025-05-29 17:42 | NUR ---
PT MOVED TO HALLWAY BED B1 AT THIS TIME./TERE
--- NOTE | 2025-05-29 17:52 | EKG ---
[facility] Test Date: 2025-05-29 Test Time: 17:48:48 Pat Name: DENI QUIROZ Department: [facility] Room: Gender: F Head Nurse: [id number] : [id number] Requested By: GONZALO ROMO Order Number: [id number] Reading MD: Rasheed Light Measurements Intervals [place] Rate: 77 P: 50 LA: 149 QRS: -3 QRSD: 90 T: 49 QT: 410 QTc: 463 Interpretive Statements Sinus rhythm Low voltage, precordial leads Consider anteroseptal infarct ST elevation, consider inferior injury Compared to ECG 04/15/2025 16:29:40 Low QRS voltage now present ST (T wave) deviation now present Sinus tachycardia no longer present Myocardial infarct finding still present Electronically Signed On 05-31-2025 11:02:52 CDT by Rasheed Light Please click the below link to view image of tracing.
[2025-05-29] MEDS: 0.9%NACL 1000ML 1,000 ML IV ONE (18:12)
[2025-05-29 18:42] LABS: APPEARANCE,URINE CLEAR (CLEAR); GLUCOSE, URINE (UA) NEGATIVE (NEGATIVE); LEUKOCYTE ESTERASE ,URINE NEGATIVE Leu/uL (NEGATIVE); NITRATE,URINE NEGATIVE (NEGATIVE); OCCULT BLOOD,URINE NEGATIVE (NEGATIVE)
[2025-05-29 18:46] LABS: ADD UA MICROSCOPIC NO
[2025-05-29 18:49] LABS: AMPHET/METH SCREEN,URINE NEGATIVE (NEGATIVE); BARBITURATE SCREEN, URINE NEGATIVE (NEGATIVE); CANNABINOID SCREEN,URINE NEGATIVE (NEGATIVE); COCAINE SCREEN,URINE NEGATIVE (NEGATIVE)
--- NOTE | 2025-05-29 19:13 | NUR ---
PATIENT SLEEPING, NO DISTRESS NOTED.
--- NOTE | 2025-05-29 20:06 | NUR ---
PATIENT BACK FROM ULTRASOUND
--- NOTE | 2025-05-29 20:31 | HMCIMG ---
EXAM: US Abdomen Limited, Appendix CLINICAL HISTORY: Right lower abdominal/pelvic pain TECHNIQUE: Real-time ultrasound of the right lower quadrant with image documentation. COMPARISON: None provided. FINDINGS: APPENDIX: Images of the right lower quadrant do not demonstrate an abnormal appendix. No evidence of acute appendicitis seen. The possibility of appendicitis is not excluded. BOWEL: Within normal limits. OTHER: No free fluid or abnormal mass. IMPRESSION: 1. No evidence of acute appendicitis seen. 2. The possibility of appendicitis is not excluded. /Sixto
[2025-05-29 21:09] VITALS: BP 122/80; PULSE 80; RESP 18; TEMP 98.4; O2SAT 98
--- NOTE | 2025-05-29 21:29 | NUR ---
WAITING ON HER RIDE TO PICK HER UP INSTRUCTED BY PROVIDER, PATIENT STATES SHE MADE ARRAINGMENTS FOR A RIDE ALREADY.
== END 2025-05-29 21:40 | disposition home or self-care (01) ==
LOC: EDH 16:46
DX: F10.129 Alcohol abuse with intoxication, unspecified (principal); E11.22 Type 2 diabetes mellitus with diabetic chronic kidney disease; N18.30 Chronic kidney disease, stage 3 unspecified; E86.0 Dehydration; F32.A Depression, unspecified; F41.9 Anxiety disorder, unspecified; Z79.899 Other long term (current) drug therapy; Z88.0 Allergy status to penicillin; Z90.49 Acquired absence of other specified parts of digestive tract; Z90.710 Acquired absence of both cervix and uterus; Y90.9 Presence of alcohol in blood, level not specified
CPT/HCPCS: 99285; 96374; 76705; 96375; 96361; 82550; 80048; 80305; 83690; 85025; 82948; 36415; 93005; 81003; J1885; G0481; J2270; J7030; J2405